=== PATIENT | female | born 2000 | race Caucasian/White ===

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

== ENCOUNTER 2020-02-23 08:30 | Emergency (ER) | payer BC, SELFPAY ==
--- NOTE | 2020-02-23 08:42 | ED.GENADULT ---
HPI - General Adult General Chief complaint: Eye Problems Stated complaint: BILATERAL EYE SWELLING Time Seen by Provider: 02/23/20 08:42 Source: patient and RN notes reviewed Mode of arrival: ambulatory Limitations: no limitations History of Present Illness HPI narrative: 19-year-old female presents with complaints of bilateral arm and anterior neck with itching, raised, and red rash for the past 2 weeks. Malinda reports increase symptoms of itching, spreading of rash to face, and bilateral eye swelling. Aveeno lotion and Benadryl pills (last this morning approximately 04:00) without relief. History of Eczema. Malinda reports recently getting a dog. Denies new changes in personal hygiene products or laundry detergent. No new foods or medications. No swelling, burning, bleeding, or drainage. Denies fever, chills, headaches, weakness, fatigue, myalgia, throat swelling, or tongue swelling. Denies chest pain or dyspnea. LMP 01/25/20. Tolerating po intake well. The patient reports she have not been diagnosed with COVID-19. The patient reports she is not waiting for the results of a COVID-19 lab test. The patient reports she do not have a new or worsening cough or shortness of breath. The patient reports she do not have any rhinorrhea, congestion, sore throat, loss of taste, nausea, vomiting, abdominal pain, and diarrhea. Denies recent traveling. Denies concerns for COVID-19 or exposures been home with limited outdoor exposure except for essential household needs, work, and return home. At this time, patient is not suspected of having COVID-19. Some parts of this dictation were generated by voice recognition software and may contain typographical and/or grammatical inaccuracies. Related Data Home Medications Medication Instructions Recorded Confirmed No Home Medications 05/12/19 02/23/20 Allergies Allergy/AdvReac Type Severity Reaction Status Date / Time No Known Allergies Allergy Verified 02/23/20 08:32 Review of Systems Review of Systems: Narrative: CONSTITUTIONAL: Denies fever, chills, sweats. EYES: Denies visual changes, redness, discharge. ENT: Denies rhinorrhea, congestion, sore throat, otalgia. Complains of bilateral eyelid swelling. CARDIOVASCULAR: Denies chest pain, palpitations, edema. RESPIRATORY: Denies dyspnea, wheezing, cough. GASTROINTESTINAL: Denies abdominal pain, nausea, vomiting, diarrhea. SKIN: Complains of diffused upper arm, anterior neck, and face with itching, raised, and red rash. Denies drainage. MUSCULOSKELETAL: Denies acute back pain, joint pain, or myalgia. NEUROLOGIC: Denies numbness or focal weakness. PSYCHIATRIC: Denies anxiety or depression. All other systems reviewed & are unremarkable except as noted in HPI and below. PMFSH Past Medical History Medical History (Updated 02/24/20 @ 00:00 by Vicky Cordero) Eczema Surgical History Surgical History (Updated 02/23/20 @ 08:59 by GEORGETTE Carrion) No significant past surgical history Family History Family History (Updated 02/23/20 @ 09:00 by GEORGETTE Carrion) Father Alive and well Mother Alive and well Social History Social History (Updated 02/23/20 @ 09:01 by GEORGETTE Carrion) Smoking status: Never smoker Tobacco type: cigarettes Second hand tobacco smoke exposure: Yes (parents) Alcohol intake: current Substance use: never Living arrangements: with family Occupation/Education: student Gender identity (if verbalized by the patient): Female Comments At time of signature, agree with nurse past medical, surgical, social, and family history. There is relevant patient's past medical history pertinent to the presenting complaint, no relevant family history pertinent to the presenting complaint. Exam Narrative: Exam Narrative: GENERAL: This is a well-nourished, well-developed patient, in no apparent distress. Talking in full sentences without deficit and ambulate with
[2020-02-23 08:46] VITALS: BP 116/69; PULSE 74; RESP 16; TEMP 36.2; O2SAT 100
[2020-02-23] MEDS: methylPREDNISolone SOD SUCC 125 MG VIAL IM (08:57)
== END 2020-02-23 09:13 | disposition home or self-care (01) ==
PROVIDERS: Emergency Provider Nurse Practitioner Family
DX: L20.9 Atopic dermatitis, unspecified (principal)
CPT/HCPCS: 96372; 99213; G0463; J2930

== ENCOUNTER 2021-08-01 17:46 | Emergency (ER) | payer OTHER, SELFPAY ==
[2021-08-01 18:07] VITALS: BP 132/80; PULSE 111; RESP 16; TEMP 37.1; O2SAT 100
--- NOTE | 2021-08-01 18:10 | PC.NURSE ---
ED Charge nurse Keyla aware of patient and need for bed assignment
[2021-08-01 18:55] LABS: Basophils Percent Auto 0.4 % (0.2-1.2); Eosinophils Absolute Auto 0.1 K/mm3 (0-0.3); Eosinophils Percent Auto 0.8 % (0-4.4); Hematocrit 41.7 % (37.0-47.0); Immature Granulocyte Absolute 0.02 K/mm3 (0.00-0.031); Immature Granulocyte Percent A 0.2 % (0-0.5); Lymphocytes Absolute Auto 2.66 K/mm3 (0.9-3.2); Mean Corpuscular HGB Conc 33.6 g/dl (32-36); Mean Corpuscular Hemoglobin 30.4 pg (26-34); Mean Corpuscular Volume 90.5 fl (80-100); Mean Platelet Volume 10.4 fl (7.4-10.4); Monocytes Absolute Auto 0.6 K/mm3 (0.1-0.6); Monocytes Percent Auto 6.2 % (2.6-8.5); Neutrophils Absolute Auto 6.1 K/mm3 (1.3-6.7); Neutrophils Percent Auto 64.4 % (45.5-73.1); Platelet Count Result 303 k/mm3 (150-375); Red Blood Count 4.61 M/mm3 (4.2-5.4); Red Cell Distribution Width 13.2 % (11.5-14.5); White Blood Count 9.5 K/mm3 (4.5-10.0)
--- NOTE | 2021-08-01 18:58 | ED.PSYCH ---
HPI - Psych General Chief Complaint: Psychiatric Symptoms <Barbara Farfan PA-C - Last Filed: 08/02/21 04:40> Stated Complaint: SI <Barbara Farfan PA-C - Last Filed: 08/02/21 04:40> Time Seen by Provider: 08/01/21 18:39 <Barbara Farfan PA-C - Last Filed: 08/02/21 04:40> History of Present Illness HPI Narrative: Patient is a 21-year-old female here for evaluation of suicidal thoughts with a plan. Patient states that she has been feeling down and depressed for as long as she remember, but over the past 3 weeks these feelings have increased. Today, she thought that she may take a bunch of pills with some alcohol or use her dad's gun to shoot herself in the head. She told her brother and aunt her suicidal thoughts, and they brought her to the emergency department. Patient admits to marijuana use today but no alcohol or other drug use. Patient does not have a formal mental health history, she was put on Lexapro for these depressive thoughts about 3 weeks ago but has never been admitted to a mental hospital. States that she has burned herself in the past but has not attempted suicide. Denies homicidal ideation, audio hallucinations visual hallucinations. <Barbara Farfan PA-C - Last Filed: 08/02/21 04:40> Related Data Home Medications: Home Medications Medication Instructions Recorded Confirmed No Home Medications 05/12/19 02/23/20 <LEONARDO Srivastava Last Filed: 08/02/21 04:40> Allergies/Adverse Reactions: Allergies Allergy/AdvReac Type Severity Reaction Status Date / Time No Known Allergies Allergy Verified 08/01/21 19:53 <LEONARDO Srivastava Last Filed: 08/02/21 04:40> Review of Systems Review of Systems: Gen.: Denies fevers or chills Eyes: Denies eye pain or visual change ENT: Denies congestion Respiratory: Denies shortness of breath or cough CV: Denies chest pain or palpitations GI: Denies abdominal pain nausea, emesis or diarrhea denies burning, urgency, frequency or hematuria Musculoskeletal: Denies back pain or muscle pain Neuro: Denies numbness, tingling, weakness or focal weakness Skin: Denies rash Psych: Reports suicidal thoughts with plan. Except as documented, all other systems reviewed and negative <Barbara Farfan PA-C - Last Filed: 08/02/21 04:40> [facility] Past Medical History Medical History: Medical History Eczema <Barbara Farfan PA-C - Last Filed: 08/02/21 04:40> Surgical History Surgical History: Surgical History No significant past surgical history <Barbara Farfan PA-C - Last Filed: 08/02/21 04:40> Family History Family History: Family History (Updated 02/23/20 @ 09:00 by GEORGETTE Carrion) Father Alive and well Mother Alive and well <Barbara Farfan PA-C - Last Filed: 08/02/21 04:40> Social History Social History: Social History (Updated 02/23/20 @ 09:01 by GEORGETTE Carrion) Smoking status: Never smoker Tobacco type: cigarettes Second hand tobacco smoke exposure: Yes (parents) Alcohol intake: current Substance use: never Gender identity (if verbalized by the patient): Female <Barbara Farfan PA-C - Last Filed: 08/02/21 04:40> Exam Narrative: APPEARANCE: Well appearing, no pain in distress, well-nourished. Head: Normocephalic and atraumatic. EYES: PERRLA/EOMI, conjunctivae clear NOSE: No nasal drainage EARS: External ear normal in appearance THROAT: Oropharynx is clear. Mucous membranes are moist. NECK: Supple. No adenopathy, no masses. RESPIRATORY: Airway patent, respirations nonlabored. Clear to auscultation bilaterally, no rales, rhonchi, wheezing. CARDIOVASCULAR: Regular rate and rhythm without murmurs, rubs, or gallops. ABDOMINAL: Normoactive bowel sounds. Soft, nontender, no
[2021-08-01 19:05] LABS: Alanine Aminotransferase 16 U/L (6-35); Albumin Level 4.9 g/dL (3.5-5.1); Alkaline Phosphatase 100 U/L (38-126); Anion Gap 6 mmol/L (8-16); Aspartate Amino Transferase 23 U/L (14-36); Bilirubin,Total 0.2 mg/dL (0.2-1.3); Blood Urea Nitrogen 11 mg/dL (7-17); Carbon Dioxide 25 mmol/L (22-30); Chloride 108 mmol/L (98-107); Estimated CRCL calculation 115 ml/min; Estimated Glomerular Filt Rate > 60; Glucose 90 mg/dL (65-110); Potassium 3.5 mmol/L (3.4-5.0); Sodium 139 mmol/L (137-145)
[2021-08-01 19:06] LABS: Ethanol < 10 mg/dL (<10)
[2021-08-01 19:35] LABS: Thyroid Stimulating Hormone 0.913 uIU/mL (0.465-4.680)
[2021-08-01 19:48] LABS: Appearance Urine Clear (Clear); Bilirubin Urine Negative (Negative); Blood Urine Negative (Negative); Color Urine Yellow (Yellow); Glucose Urine UA Negative (Negative); Ketones Urine 2+ mg/dL (Negative); Leukocyte Esterase Ur Negative LEU/UL (Negative); Nitrate Urine Negative (Negative); Protein Urine Negative (Negative); Specific Grav Ur 1.025 (1.001-1.035)
[2021-08-01 19:54] LABS: Bacteria Urine Trace /hpf; Mucus Urine Rare /lpf; RBC Urine 0-2 /hpf (0-2); Squamous Epithelial Cell Urine Few /hpf (Few); WBC Urine 0-3 /hpf
[2021-08-01 19:58] LABS: Add Urine Microscopic? YES
[2021-08-01 20:03] LABS: Amphetamine Screen Urine Negative (Negative); Barbiturate Screen Urine Negative (Negative); Benzodiazepines Screen Urine Negative (Negative); Cannabinoid Screen Urine Positive (Negative); Cocaine Screen Urine Negative (Negative); Methadone Screen Urine Negative (Negative); Opiate Screen Urine Negative (Negative); Phencyclidine Screen Urine Negative (Negative)
--- NOTE | 2021-08-01 20:38 | PC.NURSE ---
wesley Lozano at [facility] pt insurance does not qualify for [facility] evaluation.
--- NOTE | 2021-08-01 22:26 | PC.NURSE ---
Pt chart faxed to [facility].
[2021-08-01] MEDS: ACETAMINOPHEN 500 MG TABLET 1000 MG PO (23:10)
[2021-08-01] MEDS: ONDANSETRON HCL ODT 4 MG TABLET PO (23:11)
[2021-08-02 07:13] LABS: SARS-CoV-2 RNA PCR Negative
[2021-08-02 08:25] VITALS: BP 132/76; PULSE 98; RESP 16; O2SAT 98
== END 2021-08-02 10:05 ==
PROVIDERS: Emergency Medicine; Physician Assistant; Emergency Provider Emergency Medicine
DX: R45.851 Suicidal ideations (principal); F32.A Depression, unspecified; Z20.822 Contact with and (suspected) exposure to COVID-19; Z77.22 Contact with and (suspected) exposure to environmental tobacco smoke (acute) (chronic)
CPT/HCPCS: 36415; 80053; 80307; 81001; 81025; 84443; 85025; 99285; A9270; C9803; U0003; U0005

== ENCOUNTER 2024-08-14 11:41 | Emergency (ER) | payer OTHER, SELFPAY ==
--- NOTE | ~2024-08-14 | CT_ITS ---
CT abdomen pelvis w con Ordering provider: Vilma Bustillo MD History: 24 years Female with . Lower abdominal pain . Comparison: None. Technique: CT abdomen and pelvis with IV and without oral contrast. Automated exposure control and it erative reconstruction technique were employed. The dose-length product was 409.77 mGy-cm. 100 mL Omn ipaque 350 was given IV. Findings: VISUALIZED LOWER CHEST: Dependent atelectatic changes. UPPER ABDOMINAL ORGANS: Liver: Normal. Gallbladder: Increased density in the gallbladder which may be a sludge. Ultrasound evaluation advise d. Spleen: Normal. Stomach/duodenum: Normal. Pancreas: Normal. Adrenals: Normal. Kidneys: Normal. PELVIC ORGANS: The bladder is normal. Slightly hyperdense area seen in the left ovary which may be a ruptured follicle. BOWEL AND MESENTERY: Colon: No evidence of diverticulitis. Normal appendix. Small Bowel: Normal. No obstruction. Peritoneum/mesentery: No free air. Trace of free fluid is seen in the pelvis. No mesenteric lymphaden opathy. RETROPERITONEUM: Normal aorta. No retroperitoneal lymphadenopathy. MUSCULOSKELETAL: Superficial soft tissues: The superficial soft tissues are normal. Bones: Normal spine. IMPRESSION: 1. No evidence of appendicitis, diverticulitis or intestinal obstruction. 2. Increased density in the gallbladder which may indicate sludge. Ultrasound evaluation advised. 3. Hypodensity in the left ovary which may be a ruptured follicle with minimal fluid in the pelvis. Reviewed, dictated and finalized at location A.
--- NOTE | ~2024-08-14 | US_ITS ---
EXAM: PELVIC ULTRASOUND HISTORY: Pelvic pain, ovarian torsion suspected clinically COMPARISON: None. FINDINGS: UTERUS: 7.7 x 3.8 x 4.6 cm. The uterus is anteverted and anteflexed. The endometrial complex is hyperechoic and measures 17 mm. RIGHT OVARY: The right ovary is unremarkable in echogenicity and size measuring 2.5 x 1.7 x 1.7 cm. Dopplerable flow is identified. Trace surrounding free fluid is noted. LEFT OVARY: The left ovary is increased in size measuring 4.4 x 2.8 x 3.3 cm Dopplerable flow is identified. A well-circumscribed anechoic avascular focus is identified within the left ovary measuring 2.7 x 2.5 x 2.3 cm, consistent with a simple cyst, for which no further follow-up is needed. Free fluid is identified within the posterior cul-de-sac and within the right adnexa. IMPRESSION: Dopplerable flow is identified within the bilateral ovaries. Simple cyst within the left ovary which does not meet size criteria (for a patient of this age) for f ollow-up. Free fluid within the posterior cul-de-sac, likely physiologic. Reviewed, dictated and finalized at location A. IMPRESSION: Dopplerable flow is identified within the bilateral ovaries. Simple cyst within the left ovary which does not meet size criteria (for a jo ent of this age) for follow-up. Free fluid within the posterior cul-de-sac, likely physiologic.
[2024-08-14 11:48] VITALS: BP 128/88; PULSE 85; RESP 18; TEMP 36.4; O2SAT 99
--- NOTE | 2024-08-14 12:10 | ED.ABDPAIN ---
HPI - Abdominal Pain General Chief Complaint: Abdominal Pain Stated Complaint: OVARIAN CYSTS Time Seen by Provider: 08/14/24 12:06 Source: patient Mode of arrival: ambulatory Limitations: no limitations History of Present Illness HPI narrative: 24 years old white female presents with lower abdominal pain like something trying to get out of her lower belly started 2 days ago, was seen at [facility] twice yesterday last visit was admitted to the hospital overnight for ovarian cyst bilaterally, then was seen by a surgeon this morning who told her that she need to be seen by OBGYN anemia to go to [facility]. Patient drove herself to [facility] with the above symptoms. Last menstrual period June 30, 2024, history of GERD, patient never been before denies any history of abdominal surgery. She does not smoke or drink or use drugs. Patient did not eat or drink for the last 48 hours because of pain Related Data Home Medications ?Medication ?Instructions ?Recorded ?Confirmed ?Last Taken ?Type No Home Medications 05/12/19 02/23/20 Unknown History Allergies Allergy/AdvReac Type Severity Reaction Status Date / Time No Known Allergies Allergy Verified 08/14/24 11:52 Review of Systems Review of Systems: All systems reviewed & are unremarkable except as noted in HPI and below PMFSH Past Medical History Medical History Eczema Surgical History Surgical History No significant past surgical history Family History Family History Father Alive and well Mother Alive and well Social History Social History Smoking status: Never smoker Tobacco type: cigarettes Second hand tobacco smoke exposure: Yes (parents) Alcohol intake: current Substance use: never Living arrangements: with family Occupation/Education: student Gender identity (if verbalized by the patient): Female Exam Narrative: General appearance: Well-developed, well-nourished Skin: Normal color Head: Normocephalic, nontraumatic Eyes: Clear conjunctiva ENT: Oropharynx normal, ears normal, nose normal Neck: Supple, nontender Chest and respiratory: Airway patent, no respiratory distress, no accessory muscle use Heart: Regular rate/rhythm Abdomen: Soft, diffuse tenderness lower abdomen, no guarding or rebound, no organomegaly, quiet bowel sounds Vascular: Normal peripheral pulses, normal capillary refill. Musculoskeletal: Normal range of motion, nontender back Neurologic: Alert and oriented ?3, [employer] H[employer] INSPECTOR is normal as tested, no gross motor deficit Course Vital Signs Vital signs: Vital Signs Temperature 36.4 C 08/14/24 11:48 Pulse Rate 85 08/14/24 11:48 Respiratory Rate 18 08/14/24 11:48 Blood Pressure 128/88 08/14/24 11:48 Pulse Oximetry 99 08/14/24 11:48 Oxygen Delivery Room Air 08/14/24 11:48 Temperature 36.4 C 08/14/24 11:48 Pulse Rate 85 08/14/24 13:19 Respiratory Rate 16 08/14/24 13:19 Blood Pressure 121/66 08/14/24 13:19 Pulse Oximetry 98 08/14/24 13:19 Oxygen Delivery Room Air 08/14/24 11:48 MDM - Abdominal Pain MDM Narrative Medical decision making narrative: Patient came with lower abdominal pain Vital signs are stable Physical examination showing diffuse tenderness lower abdomen bilaterally Differential diagnosis ovarian cyst, ovarian torsion, appendicitis, urinary tract infection, cholecystitis, diverticulitis, constipation Blood workup today includes CBC, CMP, lipase showed WBC 11.1, Pelvic ultrasound showed 4+ KETONE, TRACE LEUKOCYTE ESTRACE, 1+ BACTERIA PELVIC ULTRASOUND SHOWED SIMPLE CYST WITHIN THE LEFT OVARY WHICH DOES NOT MEET SIZE CRITERIA FOR FOLLOW-UP CT ABDOMEN AND PELVIS WITH IV CONTRAST SHOWED MAY BE A RUPTURED FOLLICLE IN THE LEFT OVARY WITH MINIMAL FLUID IN THE PELVIS DIAGNOSIS LOWER ABDOMINAL PAIN, URINARY TRACT INFECTION-SUSPECTED DISCHARGED ON MACROBID AND IBUPROFEN NEEDED. THE PT WAS DISCHARGED TO HOME.THE PT,S CONDITION UPON DISCHARGE WAS FAIR,EDUCATION WAS PROVIDED TO THE PT IN REFERENCE TO THE FINAL IMPRESSION,DISCHARGE STUDY RESULTS,TREATMENT,PROGNOSIS AND NEED FOR FOLLOW UP . Differential Diagnosis Differential diagnosis: Likely other (As above) Medical Records Attestation: I reviewed the patient's medical records. Lab Data Attestation: I reviewed the patient's lab results. 08/14/24 12:09 08/14/24 12:09 Labs: Lab Results 08/14/24 Range/Units 12:09 WBC 11.1 H (4.5-10.0) K/mm3 RBC 5.02 (4.2-5.4) M/mm3 Hgb 14.6 (12.0-15.0) g/dL Hct 43.7 (37.0-47.0) % MCV 87.1 (80-100) fl MCH 29.1 (26-34) pg MCHC 33.4 (32-36) g/dl RDW 13.0 (11.5-14.5) % Plt Count 295 (150-375) k/mm3 MPV 10.6 H (7.4-10.4) fl Immature Gran % (Auto) 0.5 (0-0.5) % Neut % (Auto) 79.3 H (45.5-73.1) % Lymph % (Auto) 14.4 L (18.3-44.2) % [place] % (Auto) 4.9 (2.6-8.5) % Eos % (Auto) 0.7 (0-4.4) % Baso % (Auto) 0.2 (0.2-1.2) % Lymph # (Auto) 1.60 (0.9-3.2) K/mm3 [place] # (Auto) 0.5 (0.1-0.6) K/mm3 Eos # (Auto) 0.1 (0-0.3) K/mm3 Baso # (Auto) 0.0 (0.0-0.1) K/mm3 Abs Immat Gran (auto) 0.05 H (0.00-0.031) K/mm3 Absolute Neuts (auto) 8.8 H (1.3-6.7) K/mm3 Absolute Nucleated RBC 0.000 (0.0-0.012) K/mm3 Nucleated RBC % 0.0 (0.0-0.2) % Sodium 136 L (137-145) mmol/L Potassium 4.4 (3.4-5.0) mmol/L Chloride 105 (98-107) mmol/L Carbon Dioxide 17 L (22-30) mmol/L Anion Gap 14 H (4-12) mmol/L BUN 14 (7-17) mg/dL Creatinine 0.76 (0.7-1.0) mg/dL Estim Creat Clear Calc 106 ml/min Estimated GFR > 60 (59 - ) Glucose 67 (65-110) mg/dL Calcium 9.6 (8.4-10.2) mg/dL Total Bilirubin 0.8 (0.2-1.3) mg/dL AST 25 (14-36) U/L ALT 16 (6-35) U/L Alkaline Phosphatase 99 (38-126) U/L Total Protein 8.4 H (6.3-8.2) g/dL Albumin 4.5 (3.5-5.1) g/dL Lipase 64 (23-300) U/L Urine Color Yellow (Yellow) Urine Appearance Clear (Clear) Urine pH 5.5 (5.0-9.0) Ur Specific [place] 1.028 (1.001-1.035) Urine Protein Negative (Negative) mg/dL Urine Glucose (UA) Negative (Negative) mg/dL Urine Ketones 4+ H (Negative) mg/dL Ur Blood (Man) Negative (Negative) Urine Nitrate Negative (Negative) Urine Bilirubin Negative (Negative) Urine Urobilinogen 1.0 (<2.0) mg/dL Leukocyte Esterase Rfl Trace H (Negative) LYNNE/UL Urine RBC 3-5 H (0-2) /hpf Urine WBC 0-5 (0-3) /hpf Ur Squamous Epith Cells Occasional (Few) /hpf Urine Bacteria 1+ H /hpf Urine Casts 0-2 POC Urine HCG, Qual Negative (Negative) Imaging Data Radiologist's impression: ITS Impressions Pelvic/Transvag US 08/14/24 14:27 IMPRESSION: Dopplerable flow is identified within the bilateral ovaries. Simple cyst within the left ovary which does not meet size criteria (for a patient of this age) for follow-up. Free fluid within the posterior cul-de-sac, likely physiologic. Abdomen/Pelvis CT 08/14/24 15:34 IMPRESSION: 1. No evidence of appendicitis, diverticulitis or intestinal obstruction. 2. Increased density in the gallbladder which may indicate sludge. Ultrasound evaluation advised. 3. Hypodensity in the left ovary which may be a ruptured follicle with minimal fluid in the pelvis. Critical Care Time Critical Care Time Critical Care Time: No Discharge Plan Discharge Clinical Impression: Bilateral lower abdominal pain, Ovarian cyst rupture, Urinary tract infection Patient Disposition: Home Condition: Stable Instructions: Antibiotic Form, Abdominal Pain (ED), Ruptured Ovarian Cyst (ED) Additional Instructions: RETURN IF SYMPTOMS ARE WORSENING , CALL YOUR FAMILY PHYSICIAN FOR APPOINTMENT, TAKE TYLENOL, IBUPROFEN NEEDED FOR ACHES AND PAIN, CONTINUE HOME MEDICATIONS. Patient Language: Irish Prescriptions: New nitrofurantoin monohyd/m-cryst [Macrobid] 100 mg capsule 100 mg PO Q12H 5 Days Qty: 10 0RF Rx Instructions: must administer with a meal/food No Action No Home Medications loratadine [Claritin] 10 mg tablet 10 mg PO DAILY 60 Days Qty: 60 0RF prednisone 20 mg tablet 40 mg PO DAILY 5 Days Qty: 10 0RF triamcinolone acetonide 0.1 % cream 1 applic TOPICAL BID 7 Days Qty: 80 0RF pimecrolimus [Elidel] 1 % cream 1 applic topical BID Qty: 60 0RF Rx Instructions: apply to facial eczema only Follow-up/Referrals: Conner Del Rosario MD [Physician] - 08/17/24 UNKNOWN,DOCTOR [Primary Care Provider] -
[2024-08-14 12:11] LABS: BEDSIDEPREGUCG Negative (Negative)
[2024-08-14 12:17] LABS: Hematocrit 43.7 % (37.0-47.0); Hemoglobin 14.6 g/dL (12.0-15.0); Immature Granulocyte Percent A 0.5 % (0-0.5); Lymphocytes Absolute Auto 1.60 K/mm3 (0.9-3.2); Mean Corpuscular HGB Conc 33.4 g/dl (32-36); Mean Corpuscular Hemoglobin 29.1 pg (26-34); Mean Corpuscular Volume 87.1 fl (80-100); Nucleated Red Blood Cells Absolute Auto 0.000 K/mm3 (0.0-0.012); Nucleated Red Blood Cells Perc 0.0 % (0.0-0.2); Platelet Count Result 295 k/mm3 (150-375); Red Blood Count 5.02 M/mm3 (4.2-5.4); White Blood Count 11.1 K/mm3 (4.5-10.0)
[2024-08-14 12:22] LABS: Add Urine Microscopic? YES; Appearance Urine Clear (Clear); Glucose Urine UA Negative (Negative); Leukocyte Esterase Ur Trace LEU/UL (Negative); Nitrate Urine Negative (Negative); Non Pathogenic Casts 0-2; Specific Grav Ur 1.028 (1.001-1.035)
[2024-08-14 12:26] LABS: Alanine Aminotransferase 16 U/L (6-35); Albumin Level 4.5 g/dL (3.5-5.1); Alkaline Phosphatase 99 U/L (38-126); Anion Gap 14 mmol/L (4-12); Aspartate Amino Transferase 25 U/L (14-36); Bilirubin,Total 0.8 mg/dL (0.2-1.3); Blood Urea Nitrogen 14 mg/dL (7-17); Calcium 9.6 mg/dL (8.4-10.2); Carbon Dioxide 17 mmol/L (22-30); Chloride 105 mmol/L (98-107); Estimated CRCL calculation 106 ml/min; Estimated Glomerular Filt Rate > 60; Glucose 67 mg/dL (65-110); Lipase 64 U/L (23-300); Potassium 4.4 mmol/L (3.4-5.0); Sodium 136 mmol/L (137-145); Total Protein 8.4 g/dL (6.3-8.2)
--- NOTE | 2024-08-14 12:43 | PC.NURSE ---
Patient requesting pain medication. Provider aware
[2024-08-14] MEDS: ONDANSETRON INJ 4 MG/2 ML VIAL IV PUSH (13:14)
[2024-08-14] MEDS: HYDROmorphone HCL INJ (*CRX) 2 MG/ML VIAL 0.5 MG IV PUSH (13:14)
[2024-08-14 13:17] VITALS: BP 121/66; O2SAT 99
[2024-08-14 13:19] VITALS: BP 121/66; PULSE 85; RESP 16; O2SAT 98
[2024-08-14 15:01] VITALS: BP 120/74; PULSE 78; RESP 18; O2SAT 97
== END 2024-08-14 16:36 | disposition home or self-care (01) ==
PROVIDERS: Emergency Medicine; Emergency Provider Emergency Medicine
DX: N39.0 Urinary tract infection, site not specified (principal); N83.209 Unspecified ovarian cyst, unspecified side
CPT/HCPCS: 36415; 74177; 76830; 76856; 80053; 81001; 81025; 83690; 85025; 96374; 96375; 99284; J1171; J2405; Q9967

== ENCOUNTER 2024-08-27 12:19 | Emergency (ER) | payer OTHER, SELFPAY ==
[2024-08-27] VITALS (7 sets, daily range): BP systolic 112–117; BP diastolic 68–91; PULSE 52–84; RESP 16–26; TEMP 36.8; O2SAT 96–99
--- NOTE | ~2024-08-27 | CT_ITS ---
EXAMINATION: CT abdomen pelvis w con DATE: 08/27/2024 13:14 INDICATION: Abdominal pain TECHNIQUE: Computed tomography (CT) of the abdomen and pelvis was performed with 100 cc Omnipaque 350 intravenous contrast. The dose-length product was 538.69 mGy-cm. Automated exposure control and iter ative reconstruction technique were employed. COMPARISON: CT dated 08/14/2024. FINDINGS: Dependent atelectasis left lower lobe. No significant pleural or pericardial effusion. Hear t size normal. No significant vascular abnormality. No lymphadenopathy. The liver, spleen, pancreas, adrenal glands and kidneys are unremarkable. Gallbladder is present. No free air or free fluid. No ad nexal masses. No abnormal pelvic masses. There is sclerosis along the iliac aspect of the sacroiliac joints bilaterally, left greater than right, consistent with asymmetric sacroiliitis. Nonobstructive bowel gas pattern. IMPRESSION: 1. No acute abdominal abnormality. Reviewed, dictated and finalized at location B.
--- NOTE | ~2024-08-27 | XR_ITS ---
XR chest 2V Ordering provider: Justin Ponce MD History: 24 years Female with . Cough, . Comparison: None. FINDINGS: MEDIASTINUM: The cardiac silhouette is not enlarged. LUNGS: No infiltrates, effusions or pneumothorax. OTHER: No free air under the diaphragm. IMPRESSION: No acute cardiopulmonary pathology. Reviewed, dictated and finalized at location A.
[2024-08-27 12:33] LABS: BEDSIDEPREGUCG Negative (Negative)
--- NOTE | 2024-08-27 12:51 | ED.GENADULT ---
HPI - General Adult General Chief complaint: Abdominal Pain Stated complaint: abd pain Time Seen by Provider: 08/27/24 12:21 History of Present Illness HPI narrative: Patient 24-year-old female presents emergency department chief complaint of abdominal pain. Patient reports that she was diagnosed with ovarian cyst in the past reports that she started having pain diffusely throughout her abdomen also reports that she has had a cough is the generalized body aches the patient states she has had several bouts of nausea vomiting and has also had diarrhea the patient reports no prior abdominal surgeries Related Data Allergies Allergy/AdvReac Type Severity Reaction Status Date / Time No Known Allergies Allergy Verified 08/27/24 12:19 Review of Systems Review of Systems: A 10 system review of systems was completed on the patient and is negative except for what is stated in the HPI. Nursing and ancillary documentation was reviewed. PMFSH Past Medical History Medical History Eczema Surgical History Surgical History No significant past surgical history Family History Family History Father Alive and well Mother Alive and well Social History Social History Smoking status: Never smoker Tobacco type: cigarettes Second hand tobacco smoke exposure: Yes (parents) Alcohol intake: current Substance use: never Living arrangements: with family Occupation/Education: student Gender identity (if verbalized by the patient): Female Exam Narrative: GENERAL: Well-appearing, well-nourished, and in no acute distress. HEAD: Normocephalic, atraumatic. EYES: PERRLA and EOMI. ENT: Nares clear, no rhinorrhea or epistaxis. Mucous membranes moist. NECK: Supple. CHEST: Clear to auscultation. No respiratory distress. HEART: Regular rate and rhythm. No murmur heard. Normal peripheral pulses. ABDOMEN: Soft, diffusely tender to palpation, nondistended, normal active bowel sounds. EXTREMITIES: Normal range of motion. No edema. SKIN: Warm, dry, no rash. NEURO: No focal deficits. Alert and oriented x3. PSYCH: Normal mood and affect. Course Vital Signs Vital signs: Vital Signs Temperature 36.8 C 08/27/24 12:24 Pulse Rate 84 08/27/24 12:24 Respiratory Rate 16 08/27/24 12:24 Blood Pressure 115/91 H 08/27/24 12:24 Pulse Oximetry 96 08/27/24 12:24 Oxygen Delivery Room Air 08/27/24 12:24 Temperature 36.8 C 08/27/24 12:24 Pulse Rate 69 08/27/24 12:41 Respiratory Rate 20 08/27/24 12:41 Blood Pressure 115/91 H 08/27/24 12:41 Pulse Oximetry 98 08/27/24 12:41 Oxygen Delivery Room Air 08/27/24 12:24 Medical Decision Making MDM Narrative Medical decision making narrative: Differential diagnosis includes UTI, pyelonephritis, intra-abdominal infection, appendicitis, ovarian cyst,, upper respiratory infection, gastroenteritis, Patient's vital signs are within normal limits Laboratory studies showed a CBC with white count of 5.7 electrolytes are within normal limits urinalysis showed cloudy urine 2+ leukocyte esterase and 2+ bacteria COVID flu RSV are negative chest x-ray showed no focal infiltrate CT scan of the abdomen pelvis showed no acute abnormality The patient's phone orbit better after receiving IV fluids the patient will be started on Keflex for the UTI given a prescription for Zofran and she follow-up with her primary care provider Vital Signs Vital Signs: Vital Signs Temperature 36.8 C 08/27/24 12:24 Pulse Rate 84 08/27/24 12:24 Respiratory Rate 16 08/27/24 12:24 Blood Pressure 115/91 H 08/27/24 12:24 Pulse Oximetry 96 08/27/24 12:24 Oxygen Delivery Room Air 08/27/24 12:24 Temperature 36.8 C 08/27/24 12:24 Pulse Rate 69 08/27/24 12:41 Respiratory Rate 20 08/27/24 12:41 Blood Pressure 115/91 H 08/27/24 12:41 Pulse Oximetry 98 08/27/24 12:41 Oxygen Delivery Room Air 08/27/24 12:24 Lab Data 08/27/24 12:44 08/27/24 13:09 Labs: Lab Results 08/27/24 08/27/24 08/27/24 Range/Units 12:32 12:44 12:47 WBC 5.7 (4.5-10.0) K/mm3 RBC 4.43 (4.2-5.4) M/mm3 Hgb 13.0 (12.0-15.0) g/dL Hct 39.3 (37.0-47.0) % MCV 88.7 (80-100) fl MCH 29.3 (26-34) pg MCHC 33.1 (32-36) g/dl RDW 13.2 (11.5-14.5) % Plt Count 273 (150-375) k/mm3 MPV 10.7 H (7.4-10.4) fl Immature Gran % (Auto) 0.0 (0-0.5) % Neut % (Auto) 58.6 (45.5-73.1) % Lymph % (Auto) 32.0 (18.3-44.2) % [place] % (Auto) 6.7 (2.6-8.5) % Eos % (Auto) 2.5 (0-4.4) % Baso % (Auto) 0.2 (0.2-1.2) % Lymph # (Auto) 1.81 (0.9-3.2) K/mm3 [place] # (Auto) 0.4 (0.1-0.6) K/mm3 Eos # (Auto) 0.1 (0-0.3) K/mm3 Baso # (Auto) 0.0 (0.0-0.1) K/mm3 Abs Immat Gran (auto) 0.00 (0.00-0.031) K/mm3 Absolute Neuts (auto) 3.3 (1.3-6.7) K/mm3 Absolute Nucleated RBC 0.000 (0.0-0.012) K/mm3 Nucleated RBC % 0.0 (0.0-0.2) % Sodium 139 (137-145) mmol/L Potassium 3.5 (3.4-5.0) mmol/L Chloride 106 (98-107) mmol/L Carbon Dioxide 25 (22-30) mmol/L Anion Gap 8 (4-12) mmol/L BUN 8 D (7-17) mg/dL Creatinine 0.70 (0.7-1.0) mg/dL Estim Creat Clear Calc 114 ml/min Estimated GFR > 60 (59 - ) Glucose 95 (65-110) mg/dL Calcium 9.2 (8.4-10.2) mg/dL Total Bilirubin 0.4 (0.2-1.3) mg/dL AST 24 (14-36) U/L ALT 18 (6-35) U/L Alkaline Phosphatase 84 (38-126) U/L Total Protein 7.4 (6.3-8.2) g/dL Albumin 4.2 (3.5-5.1) g/dL Lipase 51 (23-300) U/L Urine Color Yellow (Yellow) Urine Appearance Cloudy H (Clear) Urine pH 8.0 (5.0-9.0) Ur Specific [place] 1.015 (1.001-1.035) Urine Protein Negative (Negative) mg/dL Urine Glucose (UA) Negative (Negative) mg/dL Urine Ketones Negative (Negative) mg/dL Ur Blood (Man) Negative (Negative) Urine Nitrate Negative (Negative) Urine Bilirubin Negative (Negative) Urine Urobilinogen 2.0 H (<2.0) mg/dL Add Ur Microanalysis Reviewed Leukocyte Esterase Rfl 2+ H (Negative) LYNNE/UL Urine RBC 0-2 (0-2) /hpf Urine WBC 0-5 (0-3) /hpf Ur Squamous Epith Cells Few (Few) /hpf Urine Bacteria 2+ H /hpf Urine Casts 0-2 POC Urine HCG, Qual Negative (Negative) Influenza A (RT-PCR) Negative (Negative) Influenza B (RT-PCR) Negative (Negative) RSV (RT-PCR) Negative (Negative) SARS-CoV-2 RNA (RT-PCR) Negative (Negative) 08/27/24 Range/Units 13:09 WBC (4.5-10.0) K/mm3 RBC (4.2-5.4) M/mm3 Hgb (12.0-15.0) g/dL Hct (37.0-47.0) % MCV (80-100) fl MCH (26-34) pg MCHC (32-36) g/dl RDW (11.5-14.5) % Plt Count (150-375) k/mm3 MPV (7.4-10.4) fl Immature Gran % (Auto) (0-0.5) % Neut % (Auto) (45.5-73.1) % Lymph % (Auto) (18.3-44.2) % [place] % (Auto) (2.6-8.5) % Eos % (Auto) (0-4.4) % Baso % (Auto) (0.2-1.2) % Lymph # (Auto) (0.9-3.2) K/mm3 [place] # (Auto) (0.1-0.6) K/mm3 Eos # (Auto) (0-0.3) K/mm3 Baso # (Auto) (0.0-0.1) K/mm3 Abs Immat Gran (auto) (0.00-0.031) K/mm3 Absolute Neuts (auto) (1.3-6.7) K/mm3 Absolute Nucleated RBC (0.0-0.012) K/mm3 Nucleated RBC % (0.0-0.2) % Sodium (137-145) mmol/L Potassium (3.4-5.0) mmol/L Chloride (98-107) mmol/L Carbon Dioxide (22-30) mmol/L Anion Gap (4-12) mmol/L BUN (7-17) mg/dL Creatinine 0.70 (0.7-1.0) mg/dL Estim Creat Clear Calc 114 ml/min Estimated GFR > 60 (59 - ) Glucose (65-110) mg/dL Calcium (8.4-10.2) mg/dL Total Bilirubin (0.2-1.3) mg/dL AST (14-36) U/L ALT (6-35) U/L Alkaline Phosphatase (38-126) U/L Total Protein (6.3-8.2) g/dL Albumin (3.5-5.1) g/dL Lipase (23-300) U/L Urine Color (Yellow) Urine Appearance (Clear) Urine pH (5.0-9.0) Ur Specific [place] (1.001-1.035) Urine Protein (Negative) mg/dL Urine Glucose (UA) (Negative) mg/dL Urine Ketones (Negative) mg/dL Ur Blood (Man) (Negative) Urine Nitrate (Negative) Urine Bilirubin (Negative) Urine Urobilinogen (<2.0) mg/dL Add Ur Microanalysis Leukocyte Esterase Rfl (Negative) LYNNE/UL Urine RBC (0-2) /hpf Urine WBC (0-3) /hpf Ur Squamous Epith Cells (Few) /hpf Urine Bacteria /hpf Urine Casts POC Urine HCG, Qual (Negative) Influenza A (RT-PCR) (Negative) Influenza B (RT-PCR) (Negative) RSV (RT-PCR) (Negative) SARS-CoV-2 RNA (RT-PCR) (Negative) Discharge Plan Discharge Clinical Impression: Abdominal pain, UTI (urinary tract infection) Patient Disposition: Home Condition: Stable Instructions: Antibiotic Form, Urinary Tract Infection in Women (ED), Abdominal Pain (ED) Patient Language: Italian Prescriptions: New cephalexin 500 mg capsule 500 mg PO Q12H 7 Days Qty: 14 0RF ondansetron 4 mg tablet,disintegrating 4 mg PO Q8H PRN (Reason: nausea and vomiting) Qty: 10 0RF No Action loratadine [Claritin] 10 mg tablet 10 mg PO DAILY 60 Days Qty: 60 0RF prednisone 20 mg tablet 40 mg PO DAILY 5 Days Qty: 10 0RF triamcinolone acetonide 0.1 % cream 1 applic TOPICAL BID 7 Days Qty: 80 0RF pimecrolimus [Elidel] 1 % cream 1 applic topical BID Qty: 60 0RF Rx Instructions: apply to facial eczema only nitrofurantoin monohyd/m-cryst [Macrobid] 100 mg capsule 100 mg PO Q12H 5 Days Qty: 10 0RF Rx Instructions: must administer with a meal/food Follow-up/Referrals: UNKNOWN,DOCTOR [Primary Care Provider] - Stand Alone Forms: Work/School Release IP
[2024-08-27 12:53] LABS: Hematocrit 39.3 % (37.0-47.0); Hemoglobin 13.0 g/dL (12.0-15.0); Immature Granulocyte Percent A 0.0 % (0-0.5); Lymphocytes Absolute Auto 1.81 K/mm3 (0.9-3.2); Mean Corpuscular HGB Conc 33.1 g/dl (32-36); Mean Corpuscular Hemoglobin 29.3 pg (26-34); Mean Corpuscular Volume 88.7 fl (80-100); Nucleated Red Blood Cells Absolute Auto 0.000 K/mm3 (0.0-0.012); Nucleated Red Blood Cells Perc 0.0 % (0.0-0.2); Platelet Count Result 273 k/mm3 (150-375); Red Blood Count 4.43 M/mm3 (4.2-5.4); White Blood Count 5.7 K/mm3 (4.5-10.0)
[2024-08-27] MEDS: SODIUM CHLORIDE 0.9% IV 1,000 ML 999 ML IV CONT (12:54)
[2024-08-27] MEDS: ONDANSETRON INJ 4 MG/2 ML VIAL IV PUSH (12:55)
[2024-08-27] MEDS: MORPHINE SULFATE (*CRX) 4 MG/ML INJ IV PUSH (12:58)
[2024-08-27 13:07] LABS: Add Urine Microscopic? YES; Appearance Urine Cloudy (Clear); Glucose Urine UA Negative (Negative); Leukocyte Esterase Ur 2+ LEU/UL (Negative); Need Manual Microscopic Reviewed; Nitrate Urine Negative (Negative); Non Pathogenic Casts 0-2; Specific Grav Ur 1.015 (1.001-1.035)
[2024-08-27 13:10] LABS: Estimated CRCL calculation 114 ml/min; Estimated Glomerular Filt Rate > 60
[2024-08-27 13:18] LABS: Alanine Aminotransferase 18 U/L (6-35); Albumin Level 4.2 g/dL (3.5-5.1); Alkaline Phosphatase 84 U/L (38-126); Anion Gap 8 mmol/L (4-12); Aspartate Amino Transferase 24 U/L (14-36); Bilirubin,Total 0.4 mg/dL (0.2-1.3); Blood Urea Nitrogen 8 mg/dL (7-17); Calcium 9.2 mg/dL (8.4-10.2); Carbon Dioxide 25 mmol/L (22-30); Chloride 106 mmol/L (98-107); Estimated CRCL calculation 114 ml/min; Estimated Glomerular Filt Rate > 60; Glucose 95 mg/dL (65-110); Lipase 51 U/L (23-300); Potassium 3.5 mmol/L (3.4-5.0); Sodium 139 mmol/L (137-145); Total Protein 7.4 g/dL (6.3-8.2)
[2024-08-27 13:29] LABS: Influenza A QL RT-PCR Negative (Negative); Influenza B QL RT-PCR Negative (Negative); RSV RNA, RT-PCR Negative (Negative); SARS-CoV-2 RNA PCR Negative (Negative)
== END 2024-08-27 15:24 | disposition home or self-care (01) ==
PROVIDERS: Emergency Provider Emergency Medicine
DX: N39.0 Urinary tract infection, site not specified (principal); R10.9 Unspecified abdominal pain; Z20.822 Contact with and (suspected) exposure to COVID-19; Z77.22 Contact with and (suspected) exposure to environmental tobacco smoke (acute) (chronic)
CPT/HCPCS: 36415; 71046; 74177; 80053; 81001; 81025; 83690; 85025; 87086; 87637; 96361; 96374; 96375; 99284; J2270; J2405; J7030; Q9967

== ENCOUNTER 2024-08-31 11:14 | Emergency (ER) | payer OTHER, SELFPAY ==
--- NOTE | ~2024-08-31 | US_ITS ---
US abdomen limited INDICATION: Mid abdomen pain. PROCEDURE: Realtime right upper abdominal ultrasound. COMPARISON: No prior studies for comparison. FINDINGS: The pancreas is normal without focal mass or pancreatic ductal dilation. Liver echotexture is normal without focal mass or intrahepatic biliary dilatation. There is normal directional flow i n the portal vein. The gallbladder is normal without stones, gallbladder wall thickening or pericholecystic fluid. Comm on bile duct measures 3 mm. No sonographic Patel's sign. IMPRESSION: 1: Normal limited abdominal ultrasound. Reviewed, dictated and finalized at location A.
[2024-08-31 12:09] VITALS: BP 121/78; PULSE 85; RESP 16; O2SAT 99
[2024-08-31 12:11] LABS: BEDSIDEPREGUCG Negative (Negative)
[2024-08-31 12:14] LABS: Hematocrit 41.3 % (37.0-47.0); Hemoglobin 13.8 g/dL (12.0-15.0); Immature Granulocyte Percent A 0.3 % (0-0.5); Lymphocytes Absolute Auto 1.13 K/mm3 (0.9-3.2); Mean Corpuscular HGB Conc 33.4 g/dl (32-36); Mean Corpuscular Hemoglobin 29.9 pg (26-34); Mean Corpuscular Volume 89.6 fl (80-100); Nucleated Red Blood Cells Absolute Auto 0.000 K/mm3 (0.0-0.012); Nucleated Red Blood Cells Perc 0.0 % (0.0-0.2); Platelet Count Result 258 k/mm3 (150-375); Red Blood Count 4.61 M/mm3 (4.2-5.4); White Blood Count 7.4 K/mm3 (4.5-10.0)
[2024-08-31 12:21] LABS: Add Urine Microscopic? NO; Appearance Urine Clear (Clear); Glucose Urine UA Negative (Negative); Leukocyte Esterase Ur Negative LEU/UL (Negative); Nitrate Urine Negative (Negative); Specific Grav Ur 1.008 (1.001-1.035)
[2024-08-31 12:38] LABS: Alanine Aminotransferase 16 U/L (6-35); Albumin Level 4.0 g/dL (3.5-5.1); Alkaline Phosphatase 89 U/L (38-126); Anion Gap 7 mmol/L (4-12); Aspartate Amino Transferase 26 U/L (14-36); Bilirubin,Total 0.2 mg/dL (0.2-1.3); Blood Urea Nitrogen 9 mg/dL (7-17); Calcium 9.1 mg/dL (8.4-10.2); Carbon Dioxide 25 mmol/L (22-30); Chloride 107 mmol/L (98-107); Estimated CRCL calculation 110 ml/min; Estimated Glomerular Filt Rate > 60; Glucose 101 mg/dL (65-110); Lipase 72 U/L (23-300); Potassium 4.5 mmol/L (3.4-5.0); Sodium 139 mmol/L (137-145); Total Protein 7.3 g/dL (6.3-8.2)
--- NOTE | 2024-08-31 12:49 | ED_ITS ---
HPI - General Adult General Chief complaint: Abdominal Pain Stated complaint: abdominal pain, nausea, vomiting Time Seen by Provider: 08/31/24 11:57 History of Present Illness HPI narrative: 24-year-old female presenting to the emergency department for evaluation for diffuse abdominal pain that has been ongoing for the past 3 weeks. Patient states she has had extensive workup for this including diagnosis to urinary tract infections it ovarian cyst and a ruptured ovarian cyst. Patient states the pain is worsened again today. Patient is tearful at time of examination. Patient states the pain is intermittent but she is unsure if it worsens with eating or drinking but she states that does worsen with movement and with palpation. Patient states the pain is worse across the middle of her abdomen but denies any worsening sidedness of the pain. Patient denies any prior history of biliary issues, appendicitis. Patient does have frequent urinary tract infections and history of your cyst. Related Data Allergies Allergy/AdvReac Type Severity Reaction Status Date / Time No Known Allergies Allergy Verified 08/31/24 12:13 Review of Systems 2 Review of Systems: All systems reviewed & are unremarkable except as noted in HPI and below PMFSH Past Medical History Medical History Eczema Surgical History Surgical History No significant past surgical history Family History Family History Father Alive and well Mother Alive and well Social History Social History Smoking status: Never smoker Tobacco type: cigarettes Second hand tobacco smoke exposure: Yes (parents) Alcohol intake: current Substance use: never Living arrangements: with family Occupation/Education: student Gender identity (if verbalized by the patient): Female Exam 2 Narrative: APPEARANCE: Uncomfortable appearing HEAD: normocephalic, atraumatic. EYES: PERRLA/EOMI, conjunctivae clear. NOSE: Normal no drainage EARS:TMS clear with good light reflex. THROAT: Pharynx clear, no exudate. NECK: Supple. No adenopathy, no masses. RESPIRATORY: Airway patent, respirations nonlabored. Clear to auscultation bilaterally, no rales, rhonchi, wheezing. CARDIOVASCULAR: Regular rate and rhythm without murmurs rubs or gallops. ABDOMINAL: Diffuse abdominal tenderness to light palpation, rebound and guarding. No distention, normal bowel sounds MUSCULOSKELETAL: Moves all extremities. Strength/ROM intact, No edema, No calf tenderness. NEURO: Alert. Cranial nerves II through XII intact. Good gait. Good coordination SKIN: Warm, dry. Normal Color PSYCHIATRIC: Tearful affect Course Vital Signs Vital signs: Vital Signs Pulse Rate 85 08/31/24 12:09 Respiratory Rate 16 08/31/24 12:09 Blood Pressure 121/78 08/31/24 12:09 Pulse Oximetry 99 08/31/24 12:09 Oxygen Delivery Room Air 08/31/24 12:09 Pulse Rate 70 08/31/24 15:10 Respiratory Rate 16 08/31/24 15:10 Blood Pressure 130/82 08/31/24 15:10 Pulse Oximetry 98 08/31/24 15:10 Oxygen Delivery Room Air 08/31/24 12:09 Medical Decision Making [facility] Narrative Medical decision making narrative: 24-year-old female presents emergency department for evaluation for intermittent abdominal pain. Patient is currently afebrile with no leukocytosis and hemoglobin of 13.8. Patient has no acute abnormalities on her CMP patient has normal T bili AST ALT alk-phos and lipase. UA was negative for infection. Patient is not . Patient was treated with IV medications for pain control, nausea control treated with 1 L of lactated Ringer's. Ultrasound was ordered to evaluate for possible cholelithiasis, cholecystitis due to prior CT scan showing gallbladder sludge. On re-evaluation patient states she does feel improved. Ultrasound was negative for acute pathology. On re-evaluation patient did admit that she does smoke THC daily. A component of her symptoms may be secondary to cannabinoid hyperemesis syndrome. Patient was strongly encouraged to refrain from THC use. Patient states she does take esomeprazole daily she was encouraged to continue this. Patient will also be provided Zofran for nausea control. The patient will be provided outpatient follow-up with GI. Differential Diagnosis Differential Diagnosis: Colitis, diverticulitis, cholecystitis, ovarian torsion, could have a TAVR versus syndrome, gastritis, esophagitis Vital Signs Vital Signs: Vital Signs Pulse Rate 85 08/31/24 12:09 Respiratory Rate 16 08/31/24 12:09 Blood Pressure 121/78 08/31/24 12:09 Pulse Oximetry 99 08/31/24 12:09 Oxygen Delivery Room Air 08/31/24 12:09 Pulse Rate 70 08/31/24 15:10 Respiratory Rate 16 08/31/24 15:10 Blood Pressure 130/82 08/31/24 15:10 Pulse Oximetry 98 08/31/24 15:10 Oxygen Delivery Room Air 08/31/24 12:09 Lab Data Lab results reviewed: Yes I reviewed the patient's lab results. 08/31/24 12:01 08/31/24 12:01 Labs: Lab Results 08/31/24 08/31/24 Range/Units 12:01 12:08 WBC 7.4 (4.5-10.0) K/mm3 RBC 4.61 (4.2-5.4) M/mm3 Hgb 13.8 (12.0-15.0) g/dL Hct 41.3 (37.0-47.0) % MCV 89.6 (80-100) fl MCH 29.9 (26-34) pg MCHC 33.4 (32-36) g/dl RDW 13.2 (11.5-14.5) % Plt Count 258 (150-375) k/mm3 MPV 10.8 H (7.4-10.4) fl Immature Gran % (Auto) 0.3 (0-0.5) % Neut % (Auto) 77.1 H (45.5-73.1) % Lymph % (Auto) 15.2 L (18.3-44.2) % [place] % (Auto) 4.7 (2.6-8.5) % Eos % (Auto) 2.4 (0-4.4) % Baso % (Auto) 0.3 (0.2-1.2) % Lymph # (Auto) 1.13 (0.9-3.2) K/mm3 [place] # (Auto) 0.4 (0.1-0.6) K/mm3 Eos # (Auto) 0.2 (0-0.3) K/mm3 Baso # (Auto) 0.0 (0.0-0.1) K/mm3 Abs Immat Gran (auto) 0.02 (0.00-0.031) K/mm3 Absolute Neuts (auto) 5.7 (1.3-6.7) K/mm3 Absolute Nucleated RBC 0.000 (0.0-0.012) K/mm3 Nucleated RBC % 0.0 (0.0-0.2) % Sodium 139 (137-145) mmol/L Potassium 4.5 (3.4-5.0) mmol/L Chloride 107 (98-107) mmol/L Carbon Dioxide 25 (22-30) mmol/L Anion Gap 7 (4-12) mmol/L BUN 9 (7-17) mg/dL Creatinine 0.71 (0.7-1.0) mg/dL Estim Creat Clear Calc 110 ml/min Estimated GFR > 60 (59 - ) Glucose 101 (65-110) mg/dL Calcium 9.1 (8.4-10.2) mg/dL Total Bilirubin 0.2 (0.2-1.3) mg/dL AST 26 (14-36) U/L ALT 16 (6-35) U/L Alkaline Phosphatase 89 (38-126) U/L Total Protein 7.3 (6.3-8.2) g/dL Albumin 4.0 (3.5-5.1) g/dL Lipase 72 (23-300) U/L Urine Color Yellow (Yellow) Urine Appearance Clear (Clear) Urine pH 7.5 (5.0-9.0) Ur Specific [place] 1.008 (1.001-1.035) Urine Protein Negative (Negative) mg/dL Urine Glucose (UA) Negative (Negative) mg/dL Urine Ketones Negative (Negative) mg/dL Ur Blood (Man) Negative (Negative) Urine Nitrate Negative (Negative) Urine Bilirubin Negative (Negative) Urine Urobilinogen 0.2 (<2.0) mg/dL Leukocyte Esterase Rfl Negative (Negative) LYNNE/UL POC Urine HCG, Qual Negative (Negative) Imaging Data Radiologist's impression: Impressions Abdomen Ultrasound 08/31/24 13:41 IMPRESSION: 1: Normal limited abdominal ultrasound. Discharge Plan Discharge Clinical Impression: Cyclical vomiting with nausea, Cannabinoid hyperemesis syndrome Patient Disposition: Home Condition: Stable Instructions: Antibiotic Form, Gastritis (DC), Diet for Stomach Ulcers and Gastritis (ED), Abdominal Pain (ED) Additional Instructions: Esomeprazole as directed for at least the next 14 days. Zofran as needed for nausea control. Follow a clear liquid diet for the next 1-3 days. Advance to bland diet as tolerated. Continue to educate yourself on cannabinoid hyperemesis syndrome and refrain from any THC use for at least 30 days. Have close follow-up with GI. If you have any worsening symptoms and please call or return to the emergency department. Patient Language: Yakut Prescriptions: New ondansetron 4 mg tablet,disintegrating 4 mg PO Q8H PRN (Reason: nausea and vomiting) Qty: 14 0RF No Action loratadine [Claritin] 10 mg tablet 10 mg PO DAILY 60 Days Qty: 60 0RF prednisone 20 mg tablet 40 mg PO DAILY 5 Days Qty: 10 0RF triamcinolone acetonide 0.1 % cream 1 applic TOPICAL BID 7 Days Qty: 80 0RF pimecrolimus [Elidel] 1 % cream 1 applic topical BID Qty: 60 0RF Rx Instructions: apply to facial eczema only nitrofurantoin monohyd/m-cryst [Macrobid] 100 mg capsule 100 mg PO Q12H 5 Days Qty: 10 0RF Rx Instructions: must administer with a meal/food cephalexin 500 mg capsule 500 mg PO Q12H 7 Days Qty: 14 0RF ondansetron 4 mg tablet,disintegrating 4 mg PO Q8H PRN (Reason: nausea and vomiting) Qty: 10 0RF Follow-up/Referrals: Nikhil Newton MD [Physician] - UNKNOWN,DOCTOR [Primary Care Provider] -
--- NOTE | 2024-08-31 13:08 | PC.NURSE ---
ultrasound at bedside
[2024-08-31] MEDS: LACTATED RINGERS 1,000 ML 999 ML IV CONT (13:09)
[2024-08-31] MEDS: ONDANSETRON INJ 4 MG/2 ML VIAL IV PUSH (13:09)
[2024-08-31] MEDS: PANTOPRAZOLE SODIUM IV 40 MG VIAL IV PUSH (13:09)
[2024-08-31] MEDS: HYDROmorphone HCL INJ (*CRX) 2 MG/ML VIAL 1 MG IV PUSH (13:10)
[2024-08-31 14:15] VITALS: BP 119/72; PULSE 72; RESP 14; O2SAT 98
[2024-08-31 15:10] VITALS: BP 130/82; PULSE 70; RESP 16; O2SAT 98
== END 2024-08-31 15:15 | disposition home or self-care (01) ==
PROVIDERS: Emergency Provider Emergency Medicine
DX: R11.15 Cyclical vomiting syndrome unrelated to migraine (principal); R11.11 Vomiting without nausea; F12.90 Cannabis use, unspecified, uncomplicated
CPT/HCPCS: 36415; 76705; 80053; 81003; 81025; 83690; 85025; 96361; 96374; 96375; 99284; J1171; J2405; J2470; J7120

== ENCOUNTER 2024-09-02 09:31 | Emergency (ER) | payer OTHER, SELFPAY ==
--- NOTE | ~2024-09-02 | CT_ITS ---
CLINICAL INDICATION: Lower abdominal pain COMPARISON: 08/27/2024 and 08/14/2024. TECHNIQUE: Multiple contiguous axial images of the abdomen and pelvis were performed following the ad ministration of with 100 mL Omnipaque-350 intravenous contrast The dose-length product (DLP) was 450.90 mGy-cm. Automated exposure control and iterative reconstruction technique were employed. FINDINGS/OBSERVATIONS: Visualized lower thorax: The bilateral lung bases are clear. The heart is of normal size, without pericardial effusion. Liver: The liver demonstrates homogeneous enhancement and is not enlarged. Gallbladder and biliary system: The gallbladder is only minimally distended, and otherwise unremarkable. Pancreas: The pancreas enhances homogeneously without ductal dilatation. Spleen: The spleen enhances homogeneously and is not enlarged. Kidneys: The bilateral kidneys enhance symmetrically without hydronephrosis or renal calculi. Adrenal glands: Unremarkable. Gastrointestinal tract: Fecal stasis within the colon. Appendix: The air-filled appendix is of normal caliber (axial series, images 100 - 108). Vasculature: Unremarkable. Lymph nodes: No pathologically enlarged or morphologically suspicious lymph nodes within the retroperitoneum or at the root of the mesentery. Pelvic structures: The bladder is distended, and otherwise unremarkable. 17 mm involuting cyst within the right ovary. The uterus is anteverted and anteflexed. The left ovary is unremarkable. Trace free fluid within the right adnexa. Body wall and musculoskeletal: Small fat-containing umbilical hernia. No significant degenerative disease within the lower thoracic or lumbosacral spine. IMPRESSION: 17 mm involuting cyst within the right ovary with surrounding free fluid. Normal appendix. Reviewed, dictated and finalized at location A.
[2024-09-02 09:42] VITALS: BP 134/77; PULSE 78; RESP 16; TEMP 36.4; O2SAT 98
[2024-09-02 10:05] LABS: BEDSIDEPREGUCG Negative (Negative)
[2024-09-02 10:24] LABS: Hematocrit 41.9 % (37.0-47.0); Hemoglobin 14.2 g/dL (12.0-15.0); Immature Granulocyte Percent A 0.4 % (0-0.5); Lymphocytes Absolute Auto 1.52 K/mm3 (0.9-3.2); Mean Corpuscular HGB Conc 33.9 g/dl (32-36); Mean Corpuscular Hemoglobin 30.0 pg (26-34); Mean Corpuscular Volume 88.4 fl (80-100); Nucleated Red Blood Cells Absolute Auto 0.000 K/mm3 (0.0-0.012); Nucleated Red Blood Cells Perc 0.0 % (0.0-0.2); Platelet Count Result 289 k/mm3 (150-375); Red Blood Count 4.74 M/mm3 (4.2-5.4); White Blood Count 8.4 K/mm3 (4.5-10.0)
[2024-09-02 10:35] LABS: Add Urine Microscopic? YES; Appearance Urine Clear (Clear); Glucose Urine UA Negative (Negative); Leukocyte Esterase Ur Trace LEU/UL (Negative); Nitrate Urine Negative (Negative); Non Pathogenic Casts 0-2; Specific Grav Ur 1.017 (1.001-1.035)
[2024-09-02 10:43] LABS: Alanine Aminotransferase 17 U/L (6-35); Albumin Level 4.5 g/dL (3.5-5.1); Alkaline Phosphatase 90 U/L (38-126); Anion Gap 9 mmol/L (4-12); Aspartate Amino Transferase 26 U/L (14-36); Bilirubin,Total 0.3 mg/dL (0.2-1.3); Blood Urea Nitrogen 12 mg/dL (7-17); Calcium 9.6 mg/dL (8.4-10.2); Carbon Dioxide 23 mmol/L (22-30); Chloride 102 mmol/L (98-107); Estimated CRCL calculation 106 ml/min; Estimated Glomerular Filt Rate > 60; Glucose 93 mg/dL (65-110); Lipase 55 U/L (23-300); Potassium 4.2 mmol/L (3.4-5.0); Sodium 134 mmol/L (137-145); Total Protein 7.9 g/dL (6.3-8.2)
[2024-09-02 12:15] VITALS: BP 132/89; PULSE 77; TEMP 36.9; O2SAT 99
[2024-09-02 14:16] VITALS: BP 146/83; PULSE 74; TEMP 36.8; O2SAT 99
--- NOTE | 2024-09-02 14:42 | ED.FEMALEGU ---
HPI - Female Genitourinary General Chief complaint: [employer] Stated complaint: pelvic pain Time Seen by Provider: 09/02/24 14:20 Focused HPI: Patient is a 24-year-old female who presents to the ER with complaints of bilateral abdominal pain that radiates to her back. She reports she has had the symptoms since beginning of August. Patient reports she was worked up at an outside facility and they told her she had ruptured ovarian cyst. She reports the pain has continued and radiates from her hips up to her spine into her chest sometimes. Patient endorses clear vaginal discharge. She denies any recent fevers, concern for STDs, or risk of . Patient denies any other medical history relevant to this ER visit. GENERAL: Ill-appearing, well-nourished, and in no acute distress. HEAD: Normocephalic, atraumatic. CHEST: Clear to auscultation. ?No respiratory distress. HEART: Regular rate and rhythm.? NEURO: ?Alert and oriented x3. Tearful Patient screened in triage and initial orders placed.? ?Additional care and disposition to be based upon?diagnostic testing and treatment. Related Data Home Medications ?Medication ?Instructions ?Recorded ?Confirmed ?Last Taken ?Type esomeprazole magnesium 40 mg 40 mg PO DAILY 09/01/24 09/01/24 Unknown History capsule,delayed release sertraline 100 mg tablet (Zoloft) 100 mg PO DAILY 09/01/24 09/01/24 Unknown History Allergies Allergy/AdvReac Type Severity Reaction Status Date / Time No Known Allergies Allergy Verified 09/02/24 09:42 [facility] Past Medical History Medical History Eczema Surgical History Surgical History No significant past surgical history Family History Family History Father Alive and well Mother Alive and well Social History Social History Smoking status: Never smoker Tobacco type: cigarettes Second hand tobacco smoke exposure: Yes (parents) Alcohol intake: current Substance use: never Living arrangements: with family Occupation/Education: student Gender identity (if verbalized by the patient): Female Course Vital Signs Vital signs: Vital Signs Temperature 36.4 C 09/02/24 09:42 Pulse Rate 78 09/02/24 09:42 Respiratory Rate 16 09/02/24 09:42 Blood Pressure 134/77 09/02/24 09:42 Pulse Oximetry 98 09/02/24 09:42 Temperature 36.8 C 09/02/24 14:16 Pulse Rate 74 09/02/24 14:16 Respiratory Rate 16 09/02/24 09:42 Blood Pressure 146/83 H 09/02/24 14:16 Pulse Oximetry 99 09/02/24 14:16 MDM - Female Genitourinary Lab Data 09/02/24 09:54 09/02/24 09:54 Labs: Lab Results 09/02/24 09/02/24 09/02/24 Range/Units 09:54 10:02 10:03 WBC 8.4 (4.5-10.0) K/mm3 RBC 4.74 (4.2-5.4) M/mm3 Hgb 14.2 (12.0-15.0) g/dL Hct 41.9 (37.0-47.0) % MCV 88.4 (80-100) fl MCH 30.0 (26-34) pg MCHC 33.9 (32-36) g/dl RDW 13.3 (11.5-14.5) % Plt Count 289 (150-375) k/mm3 MPV 11.1 H (7.4-10.4) fl Immature Gran % (Auto) 0.4 (0-0.5) % Neut % (Auto) 74.4 H (45.5-73.1) % Lymph % (Auto) 18.1 L (18.3-44.2) % [place] % (Auto) 5.5 (2.6-8.5) % Eos % (Auto) 1.4 (0-4.4) % Baso % (Auto) 0.2 (0.2-1.2) % Lymph # (Auto) 1.52 (0.9-3.2) K/mm3 [place] # (Auto) 0.5 (0.1-0.6) K/mm3 Eos # (Auto) 0.1 (0-0.3) K/mm3 Baso # (Auto) 0.0 (0.0-0.1) K/mm3 Abs Immat Gran (auto) 0.03 (0.00-0.031) K/mm3 Absolute Neuts (auto) 6.3 (1.3-6.7) K/mm3 Absolute Nucleated RBC 0.000 (0.0-0.012) K/mm3 Nucleated RBC % 0.0 (0.0-0.2) % Sodium 134 L (137-145) mmol/L Potassium 4.2 (3.4-5.0) mmol/L Chloride 102 (98-107) mmol/L Carbon Dioxide 23 (22-30) mmol/L Anion Gap 9 (4-12) mmol/L BUN 12 (7-17) mg/dL Creatinine 0.75 (0.7-1.0) mg/dL Estim Creat Clear Calc 106 ml/min Estimated GFR > 60 (59 - ) Glucose 93 (65-110) mg/dL Calcium 9.6 (8.4-10.2) mg/dL Total Bilirubin 0.3 (0.2-1.3) mg/dL AST 26 (14-36) U/L ALT 17 (6-35) U/L Alkaline Phosphatase 90 (38-126) U/L Total Protein 7.9 (6.3-8.2) g/dL Albumin 4.5 (3.5-5.1) g/dL Lipase 55 (23-300) U/L Urine Color Yellow (Yellow) Urine Appearance Clear (Clear) Urine pH 8.0 (5.0-9.0) Ur Specific [place] 1.017 (1.001-1.035) Urine Protein Negative (Negative) mg/dL Urine Glucose (UA) Negative (Negative) mg/dL Urine Ketones 1+ H (Negative) mg/dL Ur Blood (Man) Negative (Negative) Urine Nitrate Negative (Negative) Urine Bilirubin Negative (Negative) Urine Urobilinogen 1.0 (<2.0) mg/dL Leukocyte Esterase Rfl Trace H (Negative) LYNNE/UL Urine RBC 0-2 (0-2) /hpf Urine WBC 0-5 (0-3) /hpf Ur Squamous Epith Cells Occasional (Few) /hpf Urine Bacteria Rare /hpf Urine Casts 0-2 POC Urine HCG, Qual Negative (Negative) C. trachomatis (PCR) Not detected (NOT DETECTE) N. gonorrhoeae (PCR) Not detected (NOT DETECTE) T. vaginalis (PCR) Not detected (NOT DETECTE) Discharge Plan Discharge Clinical Impression: Abdominal pain Patient Disposition: Home Condition: Stable Instructions: Abdominal Pain (ED) Additional Instructions: RETURN IF SYMPTOMS ARE WORSENING , CALL YOUR FAMILY PHYSICIAN FOR APPOINTMENT, TAKE TYLENOL NEEDED FOR ACHES AND PAIN, CONTINUE HOME MEDICATIONS. Patient Language: Swedish Prescriptions: New dicyclomine 10 mg capsule 10 mg PO QID Qty: 20 0RF ondansetron HCl 4 mg tablet 4 mg PO Q4H Qty: 10 0RF Rx Instructions: 1st dose 1-2 hr before radiation No Action esomeprazole magnesium 40 mg capsule,delayed release(DR/EC) 40 mg PO DAILY sertraline [Zoloft] 100 mg tablet 100 mg PO DAILY doxycycline hyclate 100 mg capsule 100 mg PO BID 14 Days Qty: 28 0RF metronidazole 500 mg tablet 500 mg PO Q12H 14 Days Qty: 28 0RF Follow-up/Referrals: Nikhil Newton MD [Physician] - 09/07/24 UNKNOWN,DOCTOR [Primary Care Provider] -
--- NOTE | 2024-09-02 16:11 | ED_ITS ---
HPI - Female Genitourinary General Chief complaint: REPA[employer] MECH[employer]IC Stated complaint: pelvic pain Time Seen by Provider: 09/02/24 14:20 Source: patient Mode of arrival: ambulatory Limitations: no limitations History of Present Illness HPI Narrative: 24 YEARS OLD WHITE FEMALE CAME TO THE ED BY PRIVATE CAR WITH HER SIGNIFICANT OTHER COMPLAINING OF ABDOMINAL PAIN FOR THE LAST FEW WEEKS. WAS SEEN BY OBGYN YESTERDAY. HER BOYFRIEND TELLING ME THAT SHE VOMIT ONCE EVERY DAY IN THE MORNING. SHE DENIES ANY FEVER OR CHILLS OR DIARRHEA OR VAGINAL BLEEDING OR DISCHARGE. PATIENT WAS SEEN BY DIFFERENT EMERGENCY ROOM AND DIFFERENT PHYSICIANS FOR THE LAST FEW WEEKS WITHOUT SPECIFIC DIAGNOSIS. HISTORY OF DEPRESSION AND ANXIETY, AND MARIJUANA USE. Related Data Home Medications ?Medication ?Instructions ?Recorded ?Confirmed ?Last Taken ?Type esomeprazole magnesium 40 mg 40 mg PO DAILY 09/01/24 09/01/24 Unknown History capsule,delayed release sertraline 100 mg tablet (Zoloft) 100 mg PO DAILY 09/01/24 09/01/24 Unknown History Allergies Allergy/AdvReac Type Severity Reaction Status Date / Time No Known Allergies Allergy Verified 09/02/24 09:42 Review of Systems 2 Review of Systems: All systems reviewed & are unremarkable except as noted in HPI and below PMFSH Past Medical History Medical History Eczema Surgical History Surgical History No significant past surgical history Family History Family History Father Alive and well Mother Alive and well Social History Social History Smoking status: Never smoker Tobacco type: cigarettes Second hand tobacco smoke exposure: Yes (parents) Alcohol intake: current Substance use: never Living arrangements: with family Occupation/Education: student Gender identity (if verbalized by the patient): Female Exam 2 Narrative: GENERAL APPEARANCE: WELL-DEVELOPED, WELL-NOURISHED SKIN: NORMAL COLOR HEAD: NORMOCEPHALIC, NONTRAUMATIC EYES: CLEAR CONJUNCTIVA ENT: OROPHARYNX NORMAL, EARS NORMAL, NOSE NORMAL NECK: SUPPLE, NONTENDER CHEST AND RESPIRATORY: AIRWAY PATENT, NO RESPIRATORY DISTRESS, NO ACCESSORY MUSCLE USE HEART: REGULAR RATE/RHYTHM ABDOMEN: SOFT, DIFFUSE ABDOMINAL TENDERNESS, DIFFUSE FLANK TENDERNESS BILATERALLY, NO ORGANOMEGALY, QUIET BOWEL SOUNDS VASCULAR: NORMAL PERIPHERAL PULSES, NORMAL CAPILLARY REFILL. 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 TESTED, NO GROSS MOTOR DEFICIT Course Vital Signs Vital signs: Vital Signs Temperature 36.4 C 09/02/24 09:42 Pulse Rate 78 09/02/24 09:42 Respiratory Rate 16 09/02/24 09:42 Blood Pressure 134/77 09/02/24 09:42 Pulse Oximetry 98 09/02/24 09:42 Temperature 36.8 C 09/02/24 14:16 Pulse Rate 74 09/02/24 14:16 Respiratory Rate 16 09/02/24 09:42 Blood Pressure 146/83 H 09/02/24 14:16 Pulse Oximetry 99 09/02/24 14:16 MDM - Female Genitourinary MDM Narrative Medical decision making narrative: PATIENT PRESENTS WITH ABDOMINAL PAIN FOR WEEKS VITAL SIGNS ARE STABLE PHYSICAL EXAMINATION SHOWING DIFFUSE ABDOMINAL TENDERNESS ALL OVER, DIFFUSE FLANK TENDERNESS DIFFERENTIAL DIAGNOSIS INCLUDE ANXIETY/DEPRESSION INDUCING ABDOMINAL PAIN, IBS, URINARY TRACT INFECTION, COLITIS, DIVERTICULITIS, CONSTIPATION. BLOOD WORKUP TODAY INCLUDES CBC, CMP, LIPASE SHOWED INSIGNIFICANT ABNORMALITY URINALYSIS SHOWED NO ACUTE ABNORMALITY CT ABDOMEN AND PELVIS WITH IV CONTRAST SHOWED 70 MM BLUE TAKING CYST WITHIN THE RIGHT OVARY WITH SURROUNDING FREE FLUID OTHERWISE WITHIN NORMAL LIMIT DIAGNOSIS ABDOMINAL PAIN OF UNKNOWN ETIOLOGY DISCHARGED ON BENTYL, ZOFRAN FOLLOW-UP WITH OBGYN AND FISH SMOKER FOR FURTHER EVALUATION. DEPRESSION INDUCING ABDOMINAL PAIN, IBS ARE MY CONCERN Differential Diagnosis Differential diagnosis: Likely other ( ABOVE) Medical Records Attestation: I reviewed the patient's medical records. Lab Data Attestation: I reviewed the patient's lab results. 09/02/24 09:54 09/02/24 09:54 Labs: Lab Results 09/02/24 09/02/24 09/02/24 Range/Units 09:54 10:02 10:03 WBC 8.4 (4.5-10.0) K/mm3 RBC 4.74 (4.2-5.4) M/mm3 Hgb 14.2 (12.0-15.0) g/dL Hct 41.9 (37.0-47.0) % MCV 88.4 (80-100) fl MCH 30.0 (26-34) pg MCHC 33.9 (32-36) g/dl RDW 13.3 (11.5-14.5) % Plt Count 289 (150-375) k/mm3 MPV 11.1 H (7.4-10.4) fl Immature Gran % (Auto) 0.4 (0-0.5) % Neut % (Auto) 74.4 H (45.5-73.1) % Lymph % (Auto) 18.1 L (18.3-44.2) % [place] % (Auto) 5.5 (2.6-8.5) % Eos % (Auto) 1.4 (0-4.4) % Baso % (Auto) 0.2 (0.2-1.2) % Lymph # (Auto) 1.52 (0.9-3.2) K/mm3 [place] # (Auto) 0.5 (0.1-0.6) K/mm3 Eos # (Auto) 0.1 (0-0.3) K/mm3 Baso # (Auto) 0.0 (0.0-0.1) K/mm3 Abs Immat Gran (auto) 0.03 (0.00-0.031) K/mm3 Absolute Neuts (auto) 6.3 (1.3-6.7) K/mm3 Absolute Nucleated RBC 0.000 (0.0-0.012) K/mm3 Nucleated RBC % 0.0 (0.0-0.2) % Sodium 134 L (137-145) mmol/L Potassium 4.2 (3.4-5.0) mmol/L Chloride 102 (98-107) mmol/L Carbon Dioxide 23 (22-30) mmol/L Anion Gap 9 (4-12) mmol/L BUN 12 (7-17) mg/dL Creatinine 0.75 (0.7-1.0) mg/dL Estim Creat Clear Calc 106 ml/min Estimated GFR > 60 (59 - ) Glucose 93 (65-110) mg/dL Calcium 9.6 (8.4-10.2) mg/dL Total Bilirubin 0.3 (0.2-1.3) mg/dL AST 26 (14-36) U/L ALT 17 (6-35) U/L Alkaline Phosphatase 90 (38-126) U/L Total Protein 7.9 (6.3-8.2) g/dL Albumin 4.5 (3.5-5.1) g/dL Lipase 55 (23-300) U/L Urine Color Yellow (Yellow) Urine Appearance Clear (Clear) Urine pH 8.0 (5.0-9.0) Ur Specific [place] 1.017 (1.001-1.035) Urine Protein Negative (Negative) mg/dL Urine Glucose (UA) Negative (Negative) mg/dL Urine Ketones 1+ H (Negative) mg/dL Ur Blood (Man) Negative (Negative) Urine Nitrate Negative (Negative) Urine Bilirubin Negative (Negative) Urine Urobilinogen 1.0 (<2.0) mg/dL Leukocyte Esterase Rfl Trace H (Negative) LYNNE/UL Urine RBC 0-2 (0-2) /hpf Urine WBC 0-5 (0-3) /hpf Ur Squamous Epith Cells Occasional (Few) /hpf Urine Bacteria Rare /hpf Urine Casts 0-2 POC Urine HCG, Qual Negative (Negative) C. trachomatis (PCR) Not detected (NOT DETECTE) N. gonorrhoeae (PCR) Not detected (NOT DETECTE) T. vaginalis (PCR) Not detected (NOT DETECTE) Imaging Data Radiologist's impression: Impressions Abdomen/Pelvis CT 09/02/24 15:56 IMPRESSION: 17 mm involuting cyst within the right ovary with surrounding free fluid. Normal appendix. Critical Care Time Critical Care Time Critical Care Time: No Discharge Plan Discharge Clinical Impression: Abdominal pain Patient Disposition: Home Condition: Stable Instructions: Abdominal Pain (ED) Additional Instructions: RETURN IF SYMPTOMS ARE WORSENING , CALL YOUR FAMILY PHYSICIAN FOR APPOINTMENT, TAKE TYLENOL NEEDED FOR ACHES AND PAIN, CONTINUE HOME MEDICATIONS. Patient Language: Citizen [place] Prescriptions: New dicyclomine 10 mg capsule 10 mg PO QID Qty: 20 0RF ondansetron HCl 4 mg tablet 4 mg PO Q4H Qty: 10 0RF Rx Instructions: 1st dose 1-2 hr before radiation No Action esomeprazole magnesium 40 mg capsule,delayed release(DR/EC) 40 mg PO DAILY sertraline [Zoloft] 100 mg tablet 100 mg PO DAILY doxycycline hyclate 100 mg capsule 100 mg PO BID 14 Days Qty: 28 0RF metronidazole 500 mg tablet 500 mg PO Q12H 14 Days Qty: 28 0RF Follow-up/Referrals: Nikhil Newton MD [Physician] - 09/07/24 UNKNOWN,DOCTOR [Primary Care Provider] -
[2024-09-02 16:14] LABS: Trichomonas Vag PCR NOT DETECTED (NOT DETECTE)
[2024-09-02] MEDS: IBUPROFEN 600 MG TABLET PO (16:35)
[2024-09-02] MEDS: ACETAMINOPHEN 325 MG TABLET 650 MG PO (16:35)
== END 2024-09-02 17:41 | disposition home or self-care (01) ==
PROVIDERS: Registered Nurse; Emergency Provider Emergency Medicine
DX: R10.9 Unspecified abdominal pain (principal); F32.A Depression, unspecified; F41.9 Anxiety disorder, unspecified; N83.201 Unspecified ovarian cyst, right side; Z77.22 Contact with and (suspected) exposure to environmental tobacco smoke (acute) (chronic)
CPT/HCPCS: 36415; 74177; 80053; 81001; 81025; 83690; 85025; 87491; 87591; 87661; 99284; A9270; Q9967

== ENCOUNTER 2024-09-05 09:11 | Outpatient (CLI) | payer OTHER, SELFPAY ==
--- NOTE | ~2024-09-05 | US_ITS ---
EXAMINATION: US pelvic complete w TV INDICATION: Pelvic pain. Comparison:Ultrasound dated 08/14/2024 TECHNIQUE: Multiple transabdominal and endovaginal sonographic images of the pelvis performed. FINDINGS: The uterus measures 7.6 x 3.5 x 4 cm. The endometrial complex measures 11 mm. Endometrium i s heterogeneous. The right ovary measures 2.7 x 2.7 x 2.5 cm and the left ovary measures 3.3 x 1.9 x 3.8 cm. There is a right ovarian cyst measuring 2.3 cm. There are small follicles in each ovary. Normal doppler signal in both ovaries. There is no free fluid in the pelvis. There are no abnormal masses seen on either side. IMPRESSION: 1. Right ovarian cyst measuring 2.3 cm. Reviewed, dictated and finalized at location B.
== END 2024-09-05 09:12 | disposition home or self-care (01) ==
LOC: MICIMG 09:12
PROVIDERS: PCP Nurse Practitioner Adult Health; Visit Provider Nurse Practitioner Obstetrics & Gynecology
DX: R10.2 Pelvic and perineal pain (principal); N83.201 Unspecified ovarian cyst, right side
CPT/HCPCS: 76830; 76856

== ENCOUNTER 2024-10-28 16:49 | Emergency (ER) | payer OTHER, SELFPAY ==
--- NOTE | ~2024-10-28 | US_ITS ---
EXAMINATION: US abdomen limited DATE: 10/28/2024 20:57 INDICATION: Right upper cord and abdominal pain with positive Patel sign TECHNIQUE: Multiple grayscale and Doppler ultrasound images of the abdomen were obtained. COMPARISON: 09/02/2024 FINDINGS: The pancreatic head and body are normal in appearance. The pancreatic tail is not visualized. Liver has normal echogenicity and contour, with a smooth surface. No liver lesion identified. No intrahepatic biliary duct dilation suspected. Portal venous flow was seen in the hepatopetal, normal direction and has normal Doppler waveform. The gallbladder is normal in appearance. There is no cholelithiasis. The common bile duct measures 2 mm, which is normal. Sonographic Patel sign was reported as positive by the technician assistant.Visualized inferior vena cava is normal. Visualized portions of right kidney demonstrates normal echogenicity with no hydronephrosis. IMPRESSION: 1. Positive sonographic Patel's on but with normal-appearing gallbladder with no dilation, wall thickening or cholelithiasis. If there is continued clinical concern for acute cholecystitis could consider HIDA scan for further evaluation. Reviewed, dictated and finalized at location A. IMPRESSION: 1. Positive sonographic Patel's on but with normal-appearing gallbladder with no dilation, wall thickening or cholelithiasis. If there is continued clinical concern for acute cholecystitis could consider HIDA scan for further evaluation .
[2024-10-28 16:51] VITALS: BP 141/90; PULSE 92; RESP 16; TEMP 36.8; O2SAT 99
[2024-10-28 19:04] LABS: BEDSIDEPREGUCG Negative (Negative)
[2024-10-28 19:05] LABS: Hematocrit 40.4 % (37.0-47.0); Hemoglobin 13.4 g/dL (12.0-15.0); Immature Granulocyte Percent A 0.3 % (0-0.5); Lymphocytes Absolute Auto 2.39 K/mm3 (0.9-3.2); Mean Corpuscular HGB Conc 33.2 g/dl (32-36); Mean Corpuscular Hemoglobin 30.0 pg (26-34); Mean Corpuscular Volume 90.4 fl (80-100); Nucleated Red Blood Cells Absolute Auto 0.000 K/mm3 (0.0-0.012); Nucleated Red Blood Cells Perc 0.0 % (0.0-0.2); Platelet Count Result 267 k/mm3 (150-375); Red Blood Count 4.47 M/mm3 (4.2-5.4); White Blood Count 7.3 K/mm3 (4.5-10.0)
[2024-10-28 19:10] LABS: Add Urine Microscopic? YES; Appearance Urine Clear (Clear); Glucose Urine UA Negative (Negative); Leukocyte Esterase Ur Negative LEU/UL (Negative); Nitrate Urine Negative (Negative); Non Pathogenic Casts 0-2; Specific Grav Ur 1.028 (1.001-1.035)
[2024-10-28 19:17] LABS: Alanine Aminotransferase 16 U/L (6-35); Albumin Level 4.3 g/dL (3.5-5.1); Alkaline Phosphatase 95 U/L (38-126); Anion Gap 6 mmol/L (4-12); Aspartate Amino Transferase 28 U/L (14-36); Bilirubin,Total 0.3 mg/dL (0.2-1.3); Blood Urea Nitrogen 13 mg/dL (7-17); Calcium 9.0 mg/dL (8.4-10.2); Carbon Dioxide 25 mmol/L (22-30); Chloride 107 mmol/L (98-107); Estimated CRCL calculation 104 ml/min; Estimated Glomerular Filt Rate > 60; Glucose 100 mg/dL (65-110); Lipase 74 U/L (23-300); Potassium 3.6 mmol/L (3.4-5.0); Sodium 138 mmol/L (137-145); Total Protein 7.7 g/dL (6.3-8.2)
--- NOTE | 2024-10-28 19:26 | ED.ABDPAIN ---
HPI - Abdominal Pain General Chief Complaint: Abdominal Pain Stated Complaint: abd pain Time Seen by Provider: 10/28/24 18:44 Source: patient and family Mode of arrival: ambulatory Limitations: no limitations History of Present Illness HPI narrative: Patient presents with abdominal pain occurring intermittently since August. She has been seen multiple times before and diagnosed with ovarian cysts. Most recent episode symptoms started yesterday and persisted into today although he states pain feels somewhat different than previous. She has been having nausea vomiting. She had 1 episode of emesis today and 2 episodes yesterday, nonbloody. Although she reports that she has been having diarrhea occasionally, she also remains pending occasionally constipated and occasionally having diarrhea. Nonbloody. No previous abdominal surgeries. She reports pain in her right upper quadrant, 6 or 7 of 10 in severity. Last oral intake was today when she had a chicken marilee and fries. Her PCP is through [facility] , TRIN[facility] Velez. She also has an Ob Gyne here although she cannot recall the name but they are here at [facility]. She is not upcoming appointment to see gastroenterology. No fevers or chills although last night she states she felt hot. She does use marijuana near daily for pain. Her menstrual cycle started on Saturday and ended either yesterday or today. She denies any heather bleeding but occasionally when she wipes she was see pink tinge. Otherwise she denies any dysuria or hematuria. Appetite sometimes there. No sick contacts at work. Related Data Home Medications ?Medication ?Instructions ?Recorded ?Confirmed ?Last Taken ?Type esomeprazole magnesium 40 mg 40 mg PO DAILY 09/01/24 09/24/24 Unknown History capsule,delayed release sertraline 100 mg tablet (Zoloft) 100 mg PO DAILY 09/01/24 09/24/24 Unknown History Allergies Allergy/AdvReac Type Severity Reaction Status Date / Time No Known Allergies Allergy Verified 10/28/24 16:53 [facility] Past Medical History Medical History (Updated 10/29/24 @ 00:01 by Vicky Cordero) GERD (gastroesophageal reflux disease) Nausea and vomiting Eczema Surgical History Surgical History No significant past surgical history Family History Family History Father Alive and well Mother Alive and well Social History Social History (Updated 10/29/24 @ 22:08 by Meggan Daly MD) Smoking status: Never smoker Tobacco type: cigarettes Second hand tobacco smoke exposure: Yes (parents) Alcohol intake: current Substance use: never Substance use type: marijuana Other substance usage details: near daily for pain Living arrangements: with family Occupation/Education: student Gender identity (if verbalized by the patient): Female Exam Narrative: GENERAL: Well-appearing, well-nourished, and in no acute distress. HEAD: Normocephalic, atraumatic. EYES: Non injected, non icteric ENT: Nares clear, no rhinorrhea or epistaxis. Gross auditory acuity intact. NECK: Supple. No meningismus. CHEST: Speaking in full sentences. No respiratory distress. HEART: Regular rate and rhythm. . ABDOMEN: Soft, nondistended. Mild epigastric TTP, also RUQ TTP. Not peritoneal. Patel sign positive. EXTREMITIES: Normal range of motion. No lower extremity edema. SKIN: Warm, dry, no rash. NEURO: No focal deficits. Alert and oriented. Answering questions. Following commands. Normal speech without aphasia or dysarthria. PSYCH: Congruent mood and affect. Course Vital Signs Vital signs: Vital Signs Temperature 98.2 F 10/28/24 16:51 Pulse Rate 92 10/28/24 16:51 Respiratory Rate 16 10/28/24 16:51 Blood Pressure 141/90 H 10/28/24 16:51 Pulse Oximetry 99 10/28/24 16:51 Oxygen Delivery Room Air 10/28/24 16:51 Temperature 98.2 F 10/28/24 16:51 Pulse Rate 66 10/28/24 22:01 Respiratory Rate 18 10/28/24 22:01 Blood Pressure 127/69 10/28/24 22:01 Pulse Oximetry 98 10/28/24 22:01 Oxygen Delivery Room Air 10/28/24 16:51 MDM - Abdominal Pain MDM Narrative Medical decision making narrative: Patient presents with report of epigastric/RUQ abdominal pain. Previous work ups have noted ovarian cyst but she states this feels different. In the emergency department she is afebrile with acceptable vital signs, mild hypertension. test negative. Chemistry unremarkable. Lipase within normal limits. No leukocytosis. Patient does not have anemia or thrombocytopenia. In general only 1 mild abnormalities on the differential. She has microscopic hematuria on urinalysis but is also at the tail end of her menses. Patient given morphine and Zofran. She is reassessed at 9:10 p.m. and reports her pain is still present, had worsened during the ultrasound she just underwent but is 4/10 in severity, improved from the 6 or 7/10 earlier. We discussed biliary colic. She states that chicken marilee is baked and thus not very greasy. Recalls that she has had similar episodes in August and other month but has never discussed elective removal or seen a general surgeon to discuss biliary pathology. Patient will be given famotidine. She states that she took her ondansetron and dicyclomine already today but she has been having trouble taking her he has omeprazole at home in the morning and so has been taking at home at night. Will give pantoprazole here. Also another dose of Bentyl will not hurt. Feeling a little better when reassessed at 9:45 p.m.. Otherwise stable for discharge though aware that if patient were to present again in the near future may require CT imaging and/or HIDA scan as recommended by radiologist per US. Differential Diagnosis Differential diagnosis: Likely abdominal pain, constipation, endometriosis, gastroenteritis, pancreatitis and other (; cannabinoid hyperemesis syndrome; spectrum of biliary pathology; gastritis; GERD; peptic ulcer disease) Medical Records Medical records narrative: Reviewed GI notes: EGD: No history of EGD. COLONOSCOPY: No history of colonoscopy. Lab Data Attestation: I reviewed the patient's lab results. 10/28/24 18:56 10/28/24 18:56 Labs: Lab Results 10/28/24 10/28/24 10/28/24 Range/Units 18:56 19:02 19:45 WBC 7.3 (4.5-10.0) K/mm3 RBC 4.47 (4.2-5.4) M/mm3 Hgb 13.4 (12.0-15.0) g/dL Hct 40.4 (37.0-47.0) % MCV 90.4 (80-100) fl MCH 30.0 (26-34) pg MCHC 33.2 (32-36) g/dl RDW 13.0 (11.5-14.5) % Plt Count 267 (150-375) k/mm3 MPV 10.8 H (7.4-10.4) fl Immature Gran % (Auto) 0.3 (0-0.5) % Neut % (Auto) 56.9 (45.5-73.1) % Lymph % (Auto) 32.6 (18.3-44.2) % [place] % (Auto) 6.7 (2.6-8.5) % Eos % (Auto) 3.1 (0-4.4) % Baso % (Auto) 0.4 (0.2-1.2) % Lymph # (Auto) 2.39 (0.9-3.2) K/mm3 [place] # (Auto) 0.5 (0.1-0.6) K/mm3 Eos # (Auto) 0.2 (0-0.3) K/mm3 Baso # (Auto) 0.0 (0.0-0.1) K/mm3 Abs Immat Gran (auto) 0.02 (0.00-0.031) K/mm3 Absolute Neuts (auto) 4.2 (1.3-6.7) K/mm3 Absolute Nucleated RBC 0.000 (0.0-0.012) K/mm3 Nucleated RBC % 0.0 (0.0-0.2) % Sodium 138 (137-145) mmol/L Potassium 3.6 (3.4-5.0) mmol/L Chloride 107 (98-107) mmol/L Carbon Dioxide 25 (22-30) mmol/L Anion Gap 6 (4-12) mmol/L BUN 13 (7-17) mg/dL Creatinine 0.77 (0.7-1.0) mg/dL Estim Creat Clear Calc 104 ml/min Estimated GFR > 60 (59 - ) Glucose 100 (65-110) mg/dL Calcium 9.0 (8.4-10.2) mg/dL Total Bilirubin 0.3 (0.2-1.3) mg/dL AST 28 (14-36) U/L ALT 16 (6-35) U/L Alkaline Phosphatase 95 (38-126) U/L Total Protein 7.7 (6.3-8.2) g/dL Albumin 4.3 (3.5-5.1) g/dL Lipase 74 (23-300) U/L Urine Color Yellow (Yellow) Urine Appearance Clear (Clear) Urine pH 5.5 (5.0-9.0) Ur Specific [place] 1.028 (1.001-1.035) Urine Protein Trace (Negative) mg/dL Urine Glucose (UA) Negative (Negative) mg/dL Urine Ketones Trace H (Negative) mg/dL Ur Blood (Man) 1+ H (Negative) Urine Nitrate Negative (Negative) Urine Bilirubin Negative (Negative) Urine Urobilinogen 1.0 (<2.0) mg/dL Leukocyte Esterase Rfl Negative (Negative) LYNNE/UL Urine RBC 6-10 H (0-2) /hpf Urine WBC 0-5 (0-3) /hpf Ur Squamous Epith Cells None seen (Few) /hpf Urine Bacteria Rare /hpf Urine Casts 0-2 POC Urine HCG, Qual Negative (Negative) Influenza A (RT-PCR) Negative (Negative) Influenza B (RT-PCR) Negative (Negative) SARS-CoV-2 RNA (RT-PCR) Negative (Negative) Imaging Data Radiologist's impression: ITS Impressions Abdomen Ultrasound 10/28/24 20:58 IMPRESSION: 1. Positive sonographic Patel's on but with normal-appearing gallbladder with no dilation, wall thickening or cholelithiasis. If there is continued clinical concern for acute cholecystitis could consider HIDA scan for further evaluation. Discharge Plan Discharge Clinical Impression: Biliary colic, Nausea & vomiting, Right upper quadrant abdominal pain with positive Patel Sign, Marijuana use Patient Disposition: Home Condition: Stable Instructions: Antibiotic Form, Biliary Colic (ED), Acute Nausea and Vomiting (DC) Additional Instructions: As we discussed, your symptoms sound consistent with biliary colic although you did have some tenderness while performing physical exam. Continue taking your medication as prescribed and keep your upcoming follow up appointment with your business objects. They or your PCP may recommend proceeding with a HIDA (nucular medicine) scan. Trial dietary changes as described in the discharge instructions but if episodes persist/become more frequent, could consider seeing general surgeon in the outpatient setting to discuss risks/benefits of elective removal. Return to the Emergency Department immediately if the pain worsens, develops fever, persistent and uncontrolled vomiting, or for any new symptoms or concerns. Patient Language: Indonesian Prescriptions: No Action esomeprazole magnesium 40 mg capsule,delayed release(DR/EC) 40 mg PO DAILY sertraline [Zoloft] 100 mg tablet 100 mg PO DAILY dicyclomine 10 mg capsule 10 mg PO QID Qty: 20 0RF ondansetron HCl 4 mg tablet 4 mg PO Q4H Qty: 10 0RF Rx Instructions: 1st dose 1-2 hr before radiation Follow-up/Referrals: Zoe Baron APN-C [Advanced Practice Nurse, Gastroenterology] Yohannes,Alecia Abad APRN [Primary Care Provider, Unknown] Jean Claude Marin MD [Physician, Gastroenterology] Tamir Donohue MD [Physician, General Surgery] Referral Note: general surgeon Stand Alone Forms: Work/School Release IP Time of Disposition: 21:51
[2024-10-28] MEDS: MORPHINE SULFATE (*CRX) 4 MG/ML INJ IV PUSH (19:52)
[2024-10-28] MEDS: ONDANSETRON INJ 4 MG/2 ML VIAL IV PUSH (19:52)
[2024-10-28 20:32] LABS: Influenza A QL RT-PCR Negative (Negative); Influenza B QL RT-PCR Negative (Negative); SARS-CoV-2 RNA PCR Negative (Negative)
[2024-10-28] MEDS: PANTOPRAZOLE SODIUM IV 40 MG VIAL IV PUSH (21:22)
[2024-10-28] MEDS: FAMOTIDINE 20 MG/2 ML VIAL IV PUSH (21:22)
[2024-10-28] MEDS: DICYCLOMINE HCL 10 MG CAPSULE PO (21:22)
[2024-10-28 22:01] VITALS: BP 127/69; PULSE 66; RESP 18; O2SAT 98
== END 2024-10-28 22:01 | disposition home or self-care (01) ==
PROVIDERS: Emergency Provider Student in an Organized Health Care Education/Training Program; PCP Nurse Practitioner Adult Health
DX: K80.20 Calculus of gallbladder without cholecystitis without obstruction (principal); F12.90 Cannabis use, unspecified, uncomplicated; R11.2 Nausea with vomiting, unspecified; R10.11 Right upper quadrant pain; Z20.822 Contact with and (suspected) exposure to COVID-19
CPT/HCPCS: 36415; 76705; 80053; 81001; 81025; 83690; 85025; 87636; 96374; 96375; 99284; A9270; J2270; J2405; J2470

== ENCOUNTER 2024-10-30 05:13 | Emergency (ER) | payer OTHER, SELFPAY ==
--- NOTE | ~2024-10-30 | CT_ITS ---
EXAMINATION: CT abdomen pelvis w con DATE: 10/30/2024 08:52 INDICATION: Severe epigastric and right upper quadrant abdominal pain. TECHNIQUE: Computed tomography (CT) of the abdomen and pelvis was performed with 100 mL Omnipaque-350 intravenous contrast. Automated exposure control and iterative reconstruction technique were employed. The dose-length product was 439.71 mGy-cm. COMPARISON: 09/02/2024 FINDINGS: Lung bases are clear. Heart size is normal. No pericardial or pleural effusion. Mild focal hepatic steatosis at the ligamentum teres. Gallbladder, spleen, pancreas, bilateral adrenal glands and kidneys are normal. Bowels including the appendix are normal. Bladder, uterus and bilateral adnexa are normal. No free intraperitoneal gas or fluid. No pathologically enlarged abdominal or pelvic lymphadenopathy. Bilateral osteitis condensans ilii. IMPRESSION: 1. No acute intra-abdominal/pelvic process. Reviewed, dictated and finalized at location A.
--- NOTE | 2024-10-30 05:48 | ED_ITS ---
HPI - Abdominal Pain General Chief Complaint: Abdominal Pain <Cass Whatley MD - Last Filed: 10/30/24 07:09> Stated Complaint: epigastric/RUQ pain <Cass Whatley MD - Last Filed: 10/30/24 07:09> Time Seen by Provider: 10/30/24 05:20 <Cass Whatley MD - Last Filed: 10/30/24 07:09> History of Present Illness HPI narrative: For last 2 months patient has had increasing pain to her epigastric/right upper quadrant, worse in severity, was here 2 days ago for the same, had ultrasound which had positive Patel sign but otherwise unremarkable. Has consultation scheduled for gallbladder removal, has had follow-up with gastroenterology and no endoscopy yet. No nausea currently <Cass Whatley MD - Last Filed: 10/30/24 07:09> Related Data Home Medications: Home Medications ?Medication ?Instructions ?Recorded ?Confirmed ?Last Taken ?Type esomeprazole magnesium 40 mg 40 mg PO DAILY 09/01/24 0 09/24/24 Unknown History capsule,delayed release sertraline 100 mg tablet (Zoloft) 100 mg PO DAILY 08/1209/24/24 Unknown History <Cass Whatley MD - Last Filed: 10/30/24 07:09> Allergies/Adverse Reactions: Allergies Allergy/AdvReac Type Severity Reaction Status Date / Time No Known Allergies Allergy Verified 10/28/24 16:53 <Cass Whatley MD - Last Filed: 10/30/24 07:09> Review of Systems 2 Review of Systems: All systems reviewed & are unremarkable except as noted in HPI and below <Cass Whatley MD - Last Filed: 10/30/24 07:09> [facility] Past Medical History Medical History: Medical History (Updated 10/30/24 @ 07:00 by Cass Whatley MD) GERD (gastroesophageal reflux disease) Nausea and vomiting Eczema <Cass Whatley MD - Last Filed: 10/30/24 07:09> Surgical History Surgical History: Surgical History No significant past surgical history <Cass Whatley MD - Last Filed: 10/30/24 07:09> Family History Family History: Family History Father Alive and well Mother Alive and well <Cass Whatley MD - Last Filed: 10/30/24 07:09> Social History Social History: Social History (Updated 10/29/24 @ 22:08 by Meggan Daly MD) Smoking status: Never smoker Tobacco type: cigarettes Second hand tobacco smoke exposure: Yes (parents) Alcohol intake: current Substance use: never Substance use type: marijuana Other substance usage details: near daily for pain Living arrangements: with family Occupation/Education: student Gender identity (if verbalized by the patient): Female <Cass Whatley MD - Last Filed: 10/30/24 07:09> Exam 2 Narrative: EXAMINATION OF ORGAN SYSTEMS/BODY AREAS: Constitutional: Vital signs per nursing GENERAL: Appears quite uncomfortable and miserable HEAD: Normal with no signs of head trauma. EYES: EOMI, conjunctiva normal ENT: Hearing grossly intact LUNGS: Nonlabored breathing. HEART: [Regular rate and rhythm] ABD: [Soft], tender to palpation epigastric and right upper quadrant EXT: Normal range of motion SKIN: [No rashes or lesions.] NEURO: [Alert and oriented x 3. No gross focal sensory or strength deficits.] PSYCH: Normal affect <Cass Whatley MD - Last Filed: 10/30/24 07:09> Course Vital Signs Vital signs: Vital Signs Temperature 98.0 F 10/30/24 06:31 Pulse Rate 50 L 10/30/24 06:31 Respiratory Rate 16 10/30/24 06:31 Blood Pressure 120/66 10/30/24 06:31 Pulse Oximetry 98 10/30/24 06:31 Oxygen Delivery Room Air 10/30/24 06:31 Temperature 98.0 F 10/30/24 06:31 Pulse Rate 66 10/30/24 09:35 Respiratory Rate 16 10/30/24 09:35 Blood Pressure 126/68 10/30/24 09:35 Pulse Oximetry 98 10/30/24 09:35 Oxygen Delivery Room Air 10/30/24 06:31 <Cass Whatley MD - Last Filed: 10/30/24 07:09> Vital Signs Temperature 98.0 F 10/30/24 06:31 Pulse Rate 50 L 10/30/24 06:31 Respiratory Rate 16 10/30/24 06:31 Blood Pressure 120/66 10/30/24 06:31 Pulse Oximetry 98 10/30/24 06:31 Oxygen Delivery Room Air 10/30/24 06:31 Temperature 98.0 F 10/30/24 06:31 Pulse Rate 66 10/30/24 09:35 Respiratory Rate 16 10/30/24 09:35 Blood Pressure 126/68 10/30/24 09:35 Pulse Oximetry 98 10/30/24 09:35 Oxygen Delivery Room Air 10/30/24 06:31 <Lonnie Coely MD - Last Filed: 10/30/24 17:54> MDM - Abdominal Pain MDM Narrative Medical decision making narrative: Electronic medical record was reviewed. Patient presented to the ED with complaint of [abdominal pain without vomiting]. Vitals [were within acceptable limits]. Physical exam revealed [tenderness to palpation in epigastric and right upper quadrant]. Based on the patient's history and physical exam, my differential includes but is not limited to [gastritis, gastroenteritis, cholecystitis, pancreatitis, chronic abdominal pain]. [IV access was established by nursing staff. Patient was given morphine, famotidine, Protonix]. With shared decision making with patient, CTA will be obtained since her last 1 was in August and her symptoms are now much worse. Discussed with patient that she already has follow-up with specialists including GI and General surgery and that if we did not find anything new emergent here, she needs follow-up with them and continue the medications she is prescribed. Patient agreeable to the plan. Signed out to oncoming physician <Cass Whatley MD - Last Filed: 10/30/24 07:09> Electronic medical record was reviewed. Patient presented to the ED with complaint of [abdominal pain without vomiting]. Vitals [were within acceptable limits]. Physical exam revealed [tenderness to palpation in epigastric and right upper quadrant]. Based on the patient's history and physical exam, my differential includes but is not limited to [gastritis, gastroenteritis, cholecystitis, pancreatitis, chronic abdominal pain]. [IV access was established by nursing staff. Patient was given morphine, famotidine, Protonix]. With shared decision making with patient, CTA will be obtained since her last 1 was in August and her symptoms are now much worse. Discussed with patient that she already has follow-up with specialists including GI and General surgery and that if we did not find anything new emergent here, she needs follow-up with them and continue the medications she is prescribed. Patient agreeable to the plan. Signed out to oncoming physician ---- Patient care was signed out to me by the overnight physician with CT pending. Patient does have outpatient follow-up scheduled. Patient is currently afebrile but does have a leukocytosis of 11.3 and hemoglobin of 14.1. Patient has no acute abnormalities her CMP. Urine test was negative. CT scan abdomen pelvis shows no acute pathology. Patient was updated the results of workup patient was encouraged to have close follow-up with her physicians as scheduled for outpatient. All questions concerns were addressed. Patient was well-appearing at time of discharge. <Lonnie Coley MD - Last Filed: 10/30/24 17:54> Differential Diagnosis Differential diagnosis: Likely abdominal pain, acute appendicitis, calculus of kidney, constipation, diverticulitis, endometriosis, gastroenteritis, pancreatitis and small bowel obstruction <Lonnie Coley MD - Last Filed: 10/30/24 17:54> Lab Data Attestation: I reviewed the patient's lab results. <Lonnie Coley MD - Last Filed: 10/30/24 17:54> Result diagrams: 10/30/24 06:24 10/30/24 06:24 <Cass Whatley MD - Last Filed: 10/30/24 07:09> Labs: Lab Results 10/30/24 10/30/24 Range/Units 06:24 08:43 WBC 11.3 H (4.5-10.0) K/mm3 RBC 4.64 (4.2-5.4) M/mm3 Hgb 14.1 (12.0-15.0) g/dL Hct 41.8 (37.0-47.0) % MCV 90.1 (80-100) fl MCH 30.4 (26-34) pg MCHC 33.7 (32-36) g/dl RDW 13.0 (11.5-14.5) % Plt Count 337 (150-375) k/mm3 MPV 10.5 H (7.4-10.4) fl Immature Gran % (Auto) 0.4 (0-0.5) % Neut % (Auto) 67.3 (45.5-73.1) % Lymph % (Auto) 24.7 (18.3-44.2) % [place] % (Auto) 5.4 (2.6-8.5) % Eos % (Auto) 1.8 (0-4.4) % Baso % (Auto) 0.4 (0.2-1.2) % Lymph # (Auto) 2.79 (0.9-3.2) K/mm3 [place] # (Auto) 0.6 (0.1-0.6) K/mm3 Eos # (Auto) 0.2 (0-0.3) K/mm3 Baso # (Auto) 0.1 (0.0-0.1) K/mm3 Abs Immat Gran (auto) 0.04 H (0.00-0.031) K/mm3 Absolute Neuts (auto) 7.6 H (1.3-6.7) K/mm3 Absolute Nucleated RBC 0.000 (0.0-0.012) K/mm3 Nucleated RBC % 0.0 (0.0-0.2) % Sodium 137 (137-145) mmol/L Potassium 4.1 (3.4-5.0) mmol/L Chloride 103 (98-107) mmol/L Carbon Dioxide 29 (22-30) mmol/L Anion Gap 5 (4-12) mmol/L BUN 15 (7-17) mg/dL Creatinine 0.80 (0.7-1.0) mg/dL Estim Creat Clear Calc 102 ml/min Estimated GFR > 60 (59 - ) Glucose 110 (65-110) mg/dL Calcium 9.2 (8.4-10.2) mg/dL Total Bilirubin 0.5 (0.2-1.3) mg/dL AST 26 (14-36) U/L ALT 17 (6-35) U/L Alkaline Phosphatase 99 (38-126) U/L Total Protein 8.0 (6.3-8.2) g/dL Albumin 4.4 (3.5-5.1) g/dL Lipase 84 (23-300) U/L POC Urine HCG, Qual Negative (Negative) <Cass Whatley MD - Last Filed: 10/30/24 07:09> Lab Results 10/30/24 10/30/24 Range/Units 06:24 08:43 WBC 11.3 H (4.5-10.0) K/mm3 RBC 4.64 (4.2-5.4) M/mm3 Hgb 14.1 (12.0-15.0) g/dL Hct 41.8 (37.0-47.0) % MCV 90.1 (80-100) fl MCH 30.4 (26-34) pg MCHC 33.7 (32-36) g/dl RDW 13.0 (11.5-14.5) % Plt Count 337 (150-375) k/mm3 MPV 10.5 H (7.4-10.4) fl Immature Gran % (Auto) 0.4 (0-0.5) % Neut % (Auto) 67.3 (45.5-73.1) % Lymph % (Auto) 24.7 (18.3-44.2) % [place] % (Auto) 5.4 (2.6-8.5) % Eos % (Auto) 1.8 (0-4.4) % Baso % (Auto) 0.4 (0.2-1.2) % Lymph # (Auto) 2.79 (0.9-3.2) K/mm3 [place] # (Auto) 0.6 (0.1-0.6) K/mm3 Eos # (Auto) 0.2 (0-0.3) K/mm3 Baso # (Auto) 0.1 (0.0-0.1) K/mm3 Abs Immat Gran (auto) 0.04 H (0.00-0.031) K/mm3 Absolute Neuts (auto) 7.6 H (1.3-6.7) K/mm3 Absolute Nucleated RBC 0.000 (0.0-0.012) K/mm3 Nucleated RBC % 0.0 (0.0-0.2) % Sodium 137 (137-145) mmol/L Potassium 4.1 (3.4-5.0) mmol/L Chloride 103 (98-107) mmol/L Carbon Dioxide 29 (22-30) mmol/L Anion Gap 5 (4-12) mmol/L BUN 15 (7-17) mg/dL Creatinine 0.80 (0.7-1.0) mg/dL Estim Creat Clear Calc 102 ml/min Estimated GFR > 60 (59 - ) Glucose 110 (65-110) mg/dL Calcium 9.2 (8.4-10.2) mg/dL Total Bilirubin 0.5 (0.2-1.3) mg/dL AST 26 (14-36) U/L ALT 17 (6-35) U/L Alkaline Phosphatase 99 (38-126) U/L Total Protein 8.0 (6.3-8.2) g/dL Albumin 4.4 (3.5-5.1) g/dL Lipase 84 (23-300) U/L POC Urine HCG, Qual Negative (Negative) <Lonnie Coley MD - Last Filed: 10/30/24 17:54> Imaging Data Radiologist's impression: ITS Impressions Abdomen/Pelvis CT 10/30/24 08:53 IMPRESSION: 1. No acute intra-abdominal/pelvic process. <Cass Whatley MD - Last Filed: 10/30/24 07:09> ITS Impressions Abdomen/Pelvis CT 10/30/24 08:53 IMPRESSION: 1. No acute intra-abdominal/pelvic process. <Lonnie Coley MD - Last Filed: 10/30/24 17:54> Discharge Plan Discharge Clinical Impression: Epigastric abdominal pain <Cass Whatley MD - Last Filed: 10/30/24 07:09> Patient Disposition: Home <Cass Whatley MD - Last Filed: 10/30/24 07:09> Condition: Stable <Cass Whatley MD - Last Filed: 10/30/24 07:09> Instructions: Abdominal Pain (ED) <Cass Whatley MD - Last Filed: 10/30/24 07:09> Additional Instructions: Have close outpatient follow-up with your physicians as scheduled. If you have any worsening symptoms then please call or return to the emergency department. <Cass Whatley MD - Last Filed: 10/30/24 07:09> Patient Language: [place] Zealander <Cass Whatley MD - Last Filed: 10/30/24 07:09> Prescriptions: No Action esomeprazole magnesium 40 mg capsule,delayed release(DR/EC) 40 mg PO DAILY sertraline [Zoloft] 100 mg tablet 100 mg PO DAILY dicyclomine 10 mg capsule 10 mg PO QID Qty: 20 0RF ondansetron HCl 4 mg tablet 4 mg PO Q4H Qty: 10 0RF Rx Instructions: 1st dose 1-2 hr before radiation <Cass Whatley MD - Last Filed: 10/30/24 07:09> Follow-up/Referrals: Yohannes,Alecia Abad APRN [Primary Care Provider, Unknown] <Cass Whatley MD - Last Filed: 10/30/24 07:09> Stand Alone Forms: Work/School Release IP <Cass Whatley MD - Last Filed: 10/30/24 07:09>
[2024-10-30] MEDS: MORPHINE SULFATE (*CRX) 4 MG/ML INJ IV PUSH (06:22)
[2024-10-30 06:29] LABS: Hematocrit 41.8 % (37.0-47.0); Hemoglobin 14.1 g/dL (12.0-15.0); Immature Granulocyte Percent A 0.4 % (0-0.5); Lymphocytes Absolute Auto 2.79 K/mm3 (0.9-3.2); Mean Corpuscular HGB Conc 33.7 g/dl (32-36); Mean Corpuscular Hemoglobin 30.4 pg (26-34); Mean Corpuscular Volume 90.1 fl (80-100); Nucleated Red Blood Cells Absolute Auto 0.000 K/mm3 (0.0-0.012); Nucleated Red Blood Cells Perc 0.0 % (0.0-0.2); Platelet Count Result 337 k/mm3 (150-375); Red Blood Count 4.64 M/mm3 (4.2-5.4); White Blood Count 11.3 K/mm3 (4.5-10.0)
[2024-10-30 06:31] VITALS: BP 120/66; PULSE 50; RESP 16; TEMP 36.7; O2SAT 98
[2024-10-30 06:58] LABS: Alanine Aminotransferase 17 U/L (6-35); Albumin Level 4.4 g/dL (3.5-5.1); Alkaline Phosphatase 99 U/L (38-126); Anion Gap 5 mmol/L (4-12); Aspartate Amino Transferase 26 U/L (14-36); Bilirubin,Total 0.5 mg/dL (0.2-1.3); Blood Urea Nitrogen 15 mg/dL (7-17); Calcium 9.2 mg/dL (8.4-10.2); Carbon Dioxide 29 mmol/L (22-30); Chloride 103 mmol/L (98-107); Estimated CRCL calculation 102 ml/min; Estimated Glomerular Filt Rate > 60; Glucose 110 mg/dL (65-110); Lipase 84 U/L (23-300); Potassium 4.1 mmol/L (3.4-5.0); Sodium 137 mmol/L (137-145); Total Protein 8.0 g/dL (6.3-8.2)
[2024-10-30 07:10] VITALS: BP 118/74; PULSE 62; RESP 18; O2SAT 98
[2024-10-30] MEDS: PANTOPRAZOLE SODIUM IV 40 MG VIAL IV PUSH (07:33)
[2024-10-30] MEDS: FAMOTIDINE 20 MG/2 ML VIAL IV PUSH (07:34)
[2024-10-30 08:43] VITALS: BP 120/69; PULSE 55; RESP 16; O2SAT 99
[2024-10-30 08:45] LABS: BEDSIDEPREGUCG Negative (Negative)
[2024-10-30] MEDS: BELLADONNA ALK/PHENOB ELIX 10 ML, MAG HYDROX/ALUMINUM HYD/SIMETH 30 ML, LIDOCAINE 2% VI... PO (09:26)
[2024-10-30 09:35] VITALS: BP 126/68; PULSE 66; RESP 16; O2SAT 98
== END 2024-10-30 09:38 | disposition home or self-care (01) ==
PROVIDERS: Emergency Provider Emergency Medicine; PCP Nurse Practitioner Adult Health
DX: R10.13 Epigastric pain (principal); K21.9 Gastro-esophageal reflux disease without esophagitis; Z77.22 Contact with and (suspected) exposure to environmental tobacco smoke (acute) (chronic)
CPT/HCPCS: 36415; 74177; 80053; 81025; 83690; 85025; 96374; 96375; 99284; A9270; J2270; J2470; Q9967

== ENCOUNTER 2024-11-04 15:22 | Observation (INO) | payer OTHER, SELFPAY ==
--- NOTE | ~2024-11-04 | NM_ITS ---
EXAMINATION: NM_HEPATWP_NM DATE: 11/05/2024 09:11 INDICATION: Right upper quadrant abdominal pain. COMPARISON: CT abdomen and pelvis 10/30/2024 TECHNIQUE: 5.03 mCi Tc-99m mebrofenin (Choletec) was administered intravenously. Scintigraphic images of the abdomen were obtained for one hour. Then, 1.65 mcg sincalide (Kinevac) IV was administered, and imaging was continued for 30 minutes. FINDINGS: There is normal clearance of radiotracer from the blood pool. There is homogeneous tracer uptake by the liver. Activity progresses to the bowel and gallbladder. Gallbladder ejection fraction (GBEF) was 56%. Note that most patients with gallbladder dysfunction have GBEF < 35%, which overlaps with the broad normal range of 10-90%. IMPRESSION: 1. Normal hepatobiliary scintigraphy. Reviewed, dictated and finalized at location E.
--- NOTE | 2024-11-04 14:50 | ADMGEN ---
This patient, Malinda Torres, was admitted to [address] [place] [address] Room 325-02. Patient/family oriented to hospital policies and general routines including ID bracelet, bed and alarms, visiting hours, pain management, procedures, bathroom and other care routines, personal items, smoking policy, room service/diet, and visiting hours. Information on how to activate the Rapid Response Team has been discussed. Patient/Family are encouraged to report perceived risks to care and to ask questions if they do not understand what they are told or what they should do.
[2024-11-04 14:52] VITALS: BMI 29.5
--- NOTE | 2024-11-04 15:28 | PM.IMHP ---
H&P: HPI History of Present Illness Date/Time: 11/04/24 15:28 Chief Complaint: Right upper quadrant abdominal pain Narrative: This is a 24-year-old female who is being directly admitted from our office for intractable right upper quadrant abdominal pain. She went to [facility] ED on 10/28/2024 and 10/30/2024 for abdominal pain. Abdominal ultrasound showed a positive sonographic Patel sign, but a normal-appearing gallbladder with no cholelithiasis. CT scan also performed and negative. She had similar episodes of pain in the summer as well and was evaluated in the ED. she was evaluated by GI in September with scheduled follow-up and recommendations to stop using marijuana and continue omeprazole. No plans for EGD or colonoscopy. She reports decreased appetite associated with nausea and vomiting, as well as constipation. She has been taking Prilosec without relief in her symptoms. She was referred to our office as an outpatient and seen today. She continues to have intractable right upper quadrant abdominal pain and is being directly admitted for IV pain medication and IV fluids for poor oral intake. Review of Systems Review of Systems: All systems reviewed & are unremarkable except as noted in HPI and below PMFSH Past Medical History Medical History GERD (gastroesophageal reflux disease) Nausea and vomiting Eczema Surgical History Surgical History No significant past surgical history Family History Family History Father No problems noted. Mother Leukemia Gallbladder disease Other Diabetes mellitus Other Diabetes mellitus Other Ovarian cyst Social History Social History Smoking status: Never smoker Tobacco type: cigarettes Second hand tobacco smoke exposure: Yes (parents) Alcohol intake: current Drinks per week: 1 Substance use: current Substance use type: marijuana Other substance usage details: near daily for pain Lack of Transportation: No Lack of Food: Never True Current Housing: I Have Housing Concerned About Future Housing: No Difficulty Paying Gas/Electric Bills: No Difficulty Paying for Meds: No Currently Unemployed: No Education: High School Diploma/GED Difficulty w/ Childcare or Family Care: No Living arrangements: with family Occupation/Education: student Gender identity (if verbalized by the patient): Female Spiritual care concerns: No Meds Home Medications and Allergies Home Medications ?Medication ?Instructions ?Recorded ?Confirmed ?Type esomeprazole magnesium 40 mg 40 mg PO DAILY 09/01/24 11/04/24 History capsule,delayed release sertraline 100 mg tablet (Zoloft) 100 mg PO DAILY 09/01/24 11/04/24 History dicyclomine 10 mg capsule 10 mg PO QID PRN abdominal pain 11/04/24 11/04/24 History ondansetron HCl 4 mg tablet 4 mg PO Q4H 11/04/24 11/04/24 History Allergies Allergy/AdvReac Type Severity Reaction Status Date / Time No Known Allergies Allergy Verified 11/04/24 14:54 Exam Const: General: no acute distress and uncomfortable Nutritional Appearance: average body habitus Orientation/consciousness: patient oriented x3 HENMT: Head: normocephalic and atraumatic Ears: hearing grossly normal bilaterally Mouth: Yes moist mucous membranes Eyes: General: appearance normal, both eyes and all related structures Pupils: Equal, round and reactive pupils present Neck: Neck: normal visual inspection and full ROM Resp: Effort & Inspection: no respiratory distress Auscultation: clear to auscultation bilaterally Cardio: Rate: regular rate Rhythm: regular rhythm Peripheral pulses: Peripheral pulses 2+ throughout GI: Inspection: non-distended GI Palp: Yes Soft to palpation, Yes Tenderness to palpation present (GI) (RUQ), No Guarding due to palpation present (GI), No Hernia present and No Rebound tenderness present Auscultation: normal bowel sounds Skin: General skin exam: normal color Neuro: General: moves all extremities and no focal motor deficits Speech: normal speech Motor exam (neuro): 5/5 motor strength present throughout Extrem: General: normal to inspection and no edema Psych: Mental Status: mental status grossly normal Attitude: cooperative Insight: Good insight present (Psych) Judgement: Good judgement present (Psych) Assessment and Plan Assessment and plan (1) Intractable right upper quadrant abdominal pain: Code(s): R10.11 - Right upper quadrant pain Status: Acute Assessment and Plan: The patient presents with intractable RUQ pain and was evaluated in our office by Dr. Donohue. She also has been dealing with nausea and poor oral intake. She is being admitted for IV pain medication, IV fluids, and further workup of her pain. Her previous workup in the ED about a week ago was negative. CT and ultrasound showed no abnormalities of the gallbladder or any other intraabdominal process to explain her pain. Will order a HIDA scan to further evaluate the gallbladder. Will make her NPO after midnight for this test. She can have clear liquids for now as tolerated and we will order labs. She will have pain medication available as needed, as well as Zofran for her nausea. (2) Nausea and vomiting: Code(s): R11.2 - Nausea with vomiting, unspecified Status: Acute Plan I have discussed the patient's case and plan of care with Dr. Donoheu.
[2024-11-04] MEDS: SODIUM CHLORIDE 0.9% IV 1,000 ML 125 ML IV CONT ×2 (15:42→20:05)
[2024-11-04] MEDS: ONDANSETRON INJ 4 MG/2 ML VIAL IV PUSH (15:43)
[2024-11-04] MEDS: MORPHINE SULFATE (*CRX) 4 MG/ML INJ 2 MG IV PUSH (15:43)
[2024-11-04 16:26] LABS: Hematocrit 41.2 % (37.0-47.0); Hemoglobin 13.9 g/dL (12.0-15.0); Immature Granulocyte Percent A 0.2 % (0-0.5); Lymphocytes Absolute Auto 1.65 K/mm3 (0.9-3.2); Mean Corpuscular HGB Conc 33.7 g/dl (32-36); Mean Corpuscular Hemoglobin 30.0 pg (26-34); Mean Corpuscular Volume 88.8 fl (80-100); Nucleated Red Blood Cells Absolute Auto 0.000 K/mm3 (0.0-0.012); Nucleated Red Blood Cells Perc 0.0 % (0.0-0.2); Platelet Count Result 264 k/mm3 (150-375); Red Blood Count 4.64 M/mm3 (4.2-5.4); White Blood Count 8.6 K/mm3 (4.5-10.0)
[2024-11-04 16:36] LABS: INR 1.0; Prothrombin Time 13.2 Seconds (11.1-14.7)
[2024-11-04 16:37] LABS: Partial Thromboplastin Time 27.8 Seconds (22.3-36.8)
[2024-11-04 16:47] LABS: Alanine Aminotransferase 14 U/L (6-35); Albumin Level 4.3 g/dL (3.5-5.1); Alkaline Phosphatase 111 U/L (38-126); Anion Gap 7 mmol/L (4-12); Aspartate Amino Transferase 26 U/L (14-36); Bilirubin,Total 0.4 mg/dL (0.2-1.3); Blood Urea Nitrogen 7 mg/dL (7-17); Calcium 9.0 mg/dL (8.4-10.2); Carbon Dioxide 24 mmol/L (22-30); Chloride 105 mmol/L (98-107); Estimated CRCL calculation 122 ml/min; Estimated Glomerular Filt Rate > 60; Glucose 84 mg/dL (65-110); Lipase 51 U/L (23-300); Potassium 4.2 mmol/L (3.4-5.0); Sodium 136 mmol/L (137-145); Total Protein 7.8 g/dL (6.3-8.2)
[2024-11-04] MEDS: FAMOTIDINE 20 MG/2 ML VIAL IV PUSH (20:04)
[2024-11-04] MEDS: MORPHINE SULFATE (*CRX) 4 MG/ML INJ IV PUSH ×2 (20:04→23:57)
[2024-11-04 21:25] VITALS: BP 119/87; PULSE 78; RESP 14; TEMP 36.6; O2SAT 99
[2024-11-04] MEDS: ACETAMINOPHEN 500 MG TABLET 1000 MG PO (22:25)
[2024-11-05] VITALS (10 sets, daily range): BP systolic 108–142; BP diastolic 76–85; PULSE 71–111; RESP 12–20; TEMP 36.1–37.7; O2SAT 96–100
[2024-11-05] MEDS: SERTRALINE HCL 50 MG TABLET 100 MG PO (09:47)
[2024-11-05] MEDS: ONDANSETRON INJ 4 MG/2 ML VIAL IV PUSH ×2 (09:48→17:38)
[2024-11-05] MEDS: MORPHINE SULFATE (*CRX) 4 MG/ML INJ IV PUSH (09:48)
[2024-11-05] MEDS: SODIUM CHLORIDE 0.9% IV 1,000 ML 125 ML IV CONT ×2 (09:48→21:51)
[2024-11-05] MEDS: FAMOTIDINE 20 MG/2 ML VIAL IV PUSH ×2 (09:49→21:48)
--- NOTE | 2024-11-05 10:16 | PM.PNGS ---
Progress Note: A&P Assessment and Plan (1) Intractable right upper quadrant abdominal pain: Code(s): R10.11 - Right upper quadrant pain Status: Acute Assessment and Plan: Patient continues to have intractable RUQ pain and nausea. Symptoms are concerning for gallbladder dysfunction. HIDA scan is normal. We have discussed both nonoperative and surgical treatment options. We discussed the option of proceeding with a laparoscopic cholecystectomy as her symptoms could be related to her gallbladder. We also discussed that given her negative workup and a normal HIDA scan, there is at least a 15% chance that she could have surgery and continue to have her symtpoms without improvement or resolution. We also discussed the description of the procedure, risks, benefits, alternatives, and expected recovery. We discussed the risks of bile leak and bile duct injury, liver/bowel injury, bleeding, and infection. Also discussed the possibility of having to convert to an open procedure if necessary. She understands and wishes to proceed with surgery. We will add her onto the surgery schedule accordingly. Continue IV fluids, analgesics, and antiemetics for now. (2) Nausea and vomiting: Code(s): R11.2 - Nausea with vomiting, unspecified Status: Acute Plan I have discussed the patient's case and plan of care with Dr. Donohue. Subjective Subjective Date/Time Seen: 11/05/24 10:16 Patient reports: still having pain and nausea Interval history: No acute changes overnight. No new complaints. She had the HIDA scan today that was normal, but she does report having increased pain when given the IV medication during the test. Exam Const: General: comfortable and no acute distress GI: Inspection: non-distended GI Palp: Yes Soft to palpation, Yes Tenderness to palpation present (GI) (RUQ), No Guarding due to palpation present (GI) and No Rebound tenderness present Auscultation: normal bowel sounds Objective Data Vital Signs Vital Signs: Vital Signs - 24 hr 11/04/24 15:00 11/04/24 21:25 11/05/24 06:00 Temperature 97.8 F 97.0 F L Pulse Rate 78 73 Respiratory Rate 14 14 Blood Pressure 119/87 108/80 Pulse Oximetry 99 100 Oxygen Delivery Room Air Intake/Output Intake/Output: Intake & Output 11/02/24 11/03/24 11/04/24 11/05/24 23:59 23:59 23:59 23:59 Intake Total 787.9 1000 Balance 787.9 1000 Meds/Results Medications: Active Medications Generic Name Dose Route Start Last Admin Trade Name Freq PRN Reason Stop Dose Admin Acetaminophen 1,000 mg 11/04/24 15:22 11/04/24 22:25 Acetaminophen 500 Mg Tablet PO 1,000 mg Q6H PRN Administration Mild Pain (1-3) or Fever Famotidine 20 mg 11/04/24 21:00 11/05/24 09:49 Famotidine 20 Mg/2 Ml Vial IV PUSH 20 mg Q12HR ALEXA Administration Sodium Chloride 1,000 mls @ 125 mls/hr 11/04/24 15:25 11/05/24 09:48 Normal Saline Iv IV CONT 125 mls/hr .Q8H ALEXA Administration Morphine Sulfate 2 mg 11/04/24 15:28 11/04/24 15:43 Morphine Sulfate (*Crx) 4 Mg/Ml Inj IV PUSH 2 mg Q4H PRN Administration Pain Rated 4-6 Morphine Sulfate 4 mg 11/04/24 15:35 11/05/24 09:48 Morphine Sulfate (*Crx) 4 Mg/Ml Inj IV PUSH 4 mg Q4H PRN Administration Pain Rated 7-10 Ondansetron HCl 4 mg 11/04/24 15:22 11/05/24 09:48 Ondansetron Inj 4 Mg/2 Ml Vial IV PUSH 4 mg Q6H PRN Administration Nausea And Vomiting Sertraline HCl 100 mg 11/05/24 09:00 11/05/24 09:47 Sertraline Hcl 50 Mg Tablet PO 100 mg DAILY ALEXA Administration Radiology Results: ITS Impressions Hepatobiliary Scan Nuclear Medicine 11/05/24 09:20 IMPRESSION: 1. Normal hepatobiliary scintigraphy. Labs Labs: Laboratory Results - last 24 hr 11/04/24 11/05/24 16:18 06:29 WBC 8.6 RBC 4.64 Hgb 13.9 Hct 41.2 MCV 88.8 MCH 30.0 MCHC 33.7 RDW 12.6 Plt Count 264 MPV 10.5 H Immature Gran % (Auto) 0.2 Neut % (Auto) 73.9 H Lymph % (Auto) 19.2 [place] % (Auto) 4.8 Eos % (Auto) 1.6 Baso % (Auto) 0.3 Lymph # (Auto) 1.65 [place] # (Auto) 0.4 Eos # (Auto) 0.1 Baso # (Auto) 0.0 Abs Immat Gran (auto) 0.02 Absolute Neuts (auto) 6.4 Absolute Nucleated RBC 0.000 Nucleated RBC % 0.0 PT 13.2 INR 1.0 APTT 27.8 Sodium 136 L Potassium 4.2 Chloride 105 Carbon Dioxide 24 Anion Gap 7 BUN 7 D Creatinine 0.66 L Estim Creat Clear Calc 122 Estimated GFR > 60 Glucose 84 Calcium 9.0 Total Bilirubin 0.4 AST 26 ALT 14 Alkaline Phosphatase 111 Total Protein 7.8 Albumin 4.3 Lipase 51 Blood Type B Positive Antibody Screen Negative
[2024-11-05] MEDS: LACTATED RINGERS 1,000 ML 30 ML IV CONT ×2 (16:00→18:00)
--- NOTE | 2024-11-05 16:17 | WPDHPUPDATE1 ---
History and Physical Update Update Date/Time: 11/05/24 16:17 History and Physical has been reviewed, including an updated exam of the patient. There are NO changes in the patient's condition. Risks, benefits, and alternatives have been discussed and questions answered. Patient agrees to proceed with procedure.
--- NOTE | 2024-11-05 16:27 | P.PNAN_ITS ---
Anes - Initial Pre Proc Eval Procedure: Operation Date: 11/05/24 16:30 Proposed Procedures p Laparoscopic Cholecystectomy, Possible Open - Tamir Donohue MD Date/Time: 11/05/24 16:27 Surgeon: Tamir Donohue MD Pre Op Diagnosis: Intractable RUQ Pain Patient Data Age: 24 Gender: F Height: 1.68 m Weight: 82.9 kg Last Vital Signs Temp 37.7 C H 11/05/24 15:15 Pulse 109 H 11/05/24 15:15 Resp 20 11/05/24 15:15 BP 129/85 11/05/24 15:15 Pulse Ox 99 11/05/24 15:15 O2 Del Method Room Air 11/05/24 15:15 Allergies Allergy/AdvReac Type Severity Reaction Status Date / Time No Known Allergies Allergy Verified 11/05/24 15:26 Home Medications ?Medication ?Instructions ?Recorded ?Confirmed ?Type esomeprazole magnesium 40 mg 40 mg PO DAILY 09/01/24 0 11/04/24 History capsule,delayed release sertraline 100 mg tablet (Zoloft) 100 mg PO DAILY 08/1211/04/24 History dicyclomine 10 mg capsule 10 mg PO QID PRN abdominal p ain 11/04/24 11/04/24 History ondansetron HCl 4 mg tablet 4 mg PO Q4H 11/04/2411/04 History Laboratory Tests 11/04/24 11/05/24 16:18 06:29 PT 13.2 Seconds (11.1-14.7) INR 1.0 APTT 27.8 Seconds (22.3-36.8) Sodium 136 L mmol/L (137-145) Potassium 4.2 mmol/L (3.4-5.0) Chloride 105 mmol/L (98-107) Carbon Dioxide 24 mmol/L (22-30) Anion Gap 7 mmol/L (4-12) BUN 7 D mg/dL (7-17) Creatinine 0.66 L mg/dL (0.7-1.0) Estim Creat Clear Calc 122 ml/min Estimated GFR > 60 (59 - ) Glucose 84 mg/dL (65-110) Calcium 9.0 mg/dL (8.4-10.2) Total Bilirubin 0.4 mg/dL (0.2-1.3) AST 26 U/L (14-36) ALT 14 U/L (6-35) Alkaline Phosphatase 111 U/L (38-126) Total Protein 7.8 g/dL (6.3-8.2) Albumin 4.3 g/dL (3.5-5.1) Lipase 51 U/L (23-300) Blood Type B Positive Antibody Screen Negative Patient hx anesthesia problems: none Family hx anesthesia problems: none Results Review: All pre-operative results and documents have been reviewed as part of the pre- operative evaluation. [facility] Past Medical History Medical History GERD (gastroesophageal reflux disease) Nausea and vomiting Eczema Surgical History Surgical History No significant past surgical history Family History Family History Father No problems noted. Mother Leukemia Gallbladder disease Other Diabetes mellitus Other Diabetes mellitus Other Ovarian cyst Social History Social History Smoking status: Never smoker Tobacco type: cigarettes Second hand tobacco smoke exposure: Yes (parents) Alcohol intake: current Drinks per week: 1 Substance use: current Substance use type: marijuana Other substance usage details: near daily for pain Lack of Transportation: No Lack of Food: Never True Current Housing: I Have Housing Concerned About Future Housing: No Difficulty Paying Gas/Electric Bills: No Difficulty Paying for Meds: No Currently Unemployed: No Education: High School Diploma/GED Difficulty w/ Childcare or Family Care: No Living arrangements: with family Occupation/Education: student Gender identity (if verbalized by the patient): Female Spiritual care concerns: No Anes - Eval Final PreProcedure Day of Procedure 11/05/24 16:27 Patient weight: overweight Heart: regular rate and rhythm Lungs: clear to auscultation Airway: Mallampati scale class II Neurological: alert and oriented Last oral intake: >/= 8 hours ASA classification: II Emergent: no Anesthetic plan: proceed Anesthesia type and monitoring: general ETT and standard monitoring Results Review: All pre-operative results and documents have been reviewed as part of the pre- operative evaluation. Informed Consent: The patient's anesthetic plan and its attendant risks and benefits were discussed with the patient/family/POA. Questions were solicited and answers provided to the satisfaction of the patient/family/POA.
[2024-11-05] MEDS: ceFAZolin 2 GM in SODIUM CHLORIDE 0.9% IV 50 ML 100 ML IVPB (16:37)
[2024-11-05] MEDS: LIDO 1%/EPINEPHRINE 1:100,000 20 ML VIAL 30 ML INFILTRATE (16:59)
[2024-11-05] MEDS: BUPivacaine HCL 0.5% 10 ML AMP 30 ML INFILTRATE (16:59)
--- NOTE | 2024-11-05 17:15 | S_PTH ---
PATIENT: Malinda Torres LOC: [id number] U#:[id number] AGE/SX: 24/F ROOM: 325 RE11/04/[address]: Tamir Donohue MD : 2000 BED: 02 DIS: 11/06/2024 SPEC #: [id number] RECD: 11/06/24 08:55 STATUS: MAEGAN REMansoor #: [id number] ADDY: 11/05/24 17:[address]: Tamir Donohue DEPT: [facility] Surgical RECD BY: Lissy Morin ENTERED: 11/06/24 08:55 SP TYPE: Surgical OTHR DR: Alecia Sheffield, SECURITY COMPLIANCE SPECIALIST Tissues: A - Gallbladder Procedures: Hematoxylin and Eosin Stain Gross and Microscopic Level 3
--- NOTE | 2024-11-05 17:33 | W.PM.PROC2 ---
Procedure Note - Detailed Date of Procedure 11/05/24 Pre-op Diagnosis Intractable RUQ Pain Post-op Diagnosis Other (Chronic acalculous cholecystitis) Procedure Performed Laparoscopic cholecystectomy Surgeon Tamir Donohue MD Second Crusher SUKHDEEP Monreal Anesthesia General Indications Patient is a 24-year-old female who for the past several weeks has had nearly daily symptoms of right upper quadrant pain with radiation of the pain to her back. Last couple days it is been particularly bad. She has had a emergency room visit for the pain and CT scan abdomen pelvis was unremarkable an abdominal ultrasound showed no gallstones with normal gallbladder wall thickening pericholecystic fluid. She has been on a proton pump inhibitor for many months without improvement of her symptoms. HIDA scan was done this morning showing ejection fraction gallbladder 55% with a patent common bile duct however she did have recreation of her symptoms of pain in the right upper quadrant and back pain with injection of the cholecystokinin. She presents now for a laparoscopic cholecystectomy. Findings The gallbladder distended with some minimal thickening of the gallbladder wall. There were no adhesions of the colon, duodenum, or stomach to the gallbladder. No gallstones were palpated. Description of Procedure After informed consent was obtained patient brought to the operating room she was placed supine position and general endotracheal anesthesia was administered. The abdomen was then prepped and draped usual sterile fashion. Time-out was then performed correctly identifying the patient as well as procedure to be performed. She was given perioperative IV antibiotics. After the procedure by entering the abdomen left upper quadrant utilizing a 5mm Optiview port. Once inside the abdomen insufflated to adequate pneumoperitoneum of 15mmHg of CO2. I could see there were no adhesions in the periumbilical region so then placed a 5mm periumbilical trocar port and then looking to the upper portion of the abdomen I placed a 10mm epigastric trocar port and 2 more 5mm right subcostal trocar ports all under direct visualization. Working through these ports a laparoscopic grasper was used to the gallbladder at the dome and the gallbladder was elevated over the right half of liver towards the right shoulder. The gallbladder wall was minimally thickened and there were no adhesions of the duodenum, omentum, stomach, or colon to the infundibular gallbladder. A 2nd grasper used that hold the gallbladder at the infundibulum. I then proceeded to strip down the visceral peritoneum off of the infundibular gallbladder and identified the cystic duct. The cystic duct was then dissected out circumferentially. The cystic artery was identified it was then dissected out circumferentially as well. The posterior wall the gallbladder at the infundibulum dissected free liver into the critical view was obtained. At this point I then placed 2 clips proximally cystic duct and 2 clips distally high on infundibular gallbladder. The cystic duct was then divided Endo Claudia. In a similar fashion cystic artery was then clipped and divided as well. The gallbladder was resected off the liver utilized electrocautery. At 1 point during dissection a small defect was made in the gallbladder wall and there was spillage of normal-appearing bile. This was quickly aspirated from the abdomen out of the gallbladder. Once I completed resection of the gallbladder off the liver bed I then placed into an Endo-Catch bag and brought out through the epigastric trocar port site. The gallbladder was palpated there were no gallstones. It was sent to pathology for examination. I then extensively irrigated out the right upper quadrant the abdomen aspirating all the bile in the area. At in the pre irrigation the fluid was clear without any bile staining. Aspirated the fluid from the pelvis as well. Gallbladder fossa appeared to be static and there is no evidence of bile leak. I then removed all the trocar ports under direct visualization and all port sites appeared hemostatic. The abdomen was then allowed to decompress. I then irrigated out the port sites sterile saline solution hemostasis was good. I then closed the epigastric 10mm trocar port fascial defect utilizing 0 Vicryl suture. The skin edges in all the port sites were then approximated utilizing a running subcuticular 4 Monocryl suture. The incisions were then cleaned the skin glue was applied. The patient tolerated the procedure well no complications. All sponges, needles, and instrument counts were correct at the end procedure. EBL was _15__cc. The patient was awakened and taken to recovery in stable and satisfactory condition. Implants None Estimated Blood Loss 15 Drains No Packing No Pathology Yes (Gallbladder sent to pathology) Complications No immediate complications Condition Stable Disposition PACU [facility] Billing Surgery - Charge Forward: Surgery Billing
[2024-11-05] MEDS: MORPHINE SULFATE (*CRX) 4 MG/ML INJ 2 MG IV PUSH (21:48)
[2024-11-06] MEDS: MORPHINE SULFATE (*CRX) 4 MG/ML INJ IV PUSH ×3 (04:58→12:50)
[2024-11-06 05:44] VITALS: BP 126/70; PULSE 75; RESP 12; TEMP 35.9; O2SAT 98
[2024-11-06] MEDS: SODIUM CHLORIDE 0.9% IV 1,000 ML 125 ML IV CONT (06:09)
[2024-11-06 08:28] LABS: Hematocrit 41.7 % (37.0-47.0); Hemoglobin 14.1 g/dL (12.0-15.0); Mean Corpuscular HGB Conc 33.8 g/dl (32-36); Mean Corpuscular Hemoglobin 30.2 pg (26-34); Mean Corpuscular Volume 89.3 fl (80-100); Platelet Count Result 288 k/mm3 (150-375); Red Blood Count 4.67 M/mm3 (4.2-5.4); White Blood Count 11.2 K/mm3 (4.5-10.0)
[2024-11-06 09:00] LABS: Alanine Aminotransferase 24 U/L (6-35); Albumin Level 4.3 g/dL (3.5-5.1); Alkaline Phosphatase 97 U/L (38-126); Anion Gap 9 mmol/L (4-12); Aspartate Amino Transferase 41 U/L (14-36); Bilirubin,Total 0.5 mg/dL (0.2-1.3); Blood Urea Nitrogen 7 mg/dL (7-17); Calcium 9.0 mg/dL (8.4-10.2); Carbon Dioxide 23 mmol/L (22-30); Chloride 101 mmol/L (98-107); Estimated CRCL calculation 107 ml/min; Estimated Glomerular Filt Rate > 60; Glucose 105 mg/dL (65-110); Potassium 4.2 mmol/L (3.4-5.0); Sodium 133 mmol/L (137-145); Total Protein 7.5 g/dL (6.3-8.2)
[2024-11-06] MEDS: SERTRALINE HCL 50 MG TABLET 100 MG PO (09:03)
[2024-11-06] MEDS: FAMOTIDINE 20 MG/2 ML VIAL IV PUSH (09:04)
--- NOTE | 2024-11-06 10:14 | WPDANESPN ---
Anes - Prog Note Post-Op Date/Time: 11/06/24 10:14 Cardiovascular status: normal Respiratory status: normal Airway patency: baseline Mental status: baseline Post-Op hydration status: normal Vital Signs: Last Vital Signs Temp 35.9 C L 11/06/24 05:44 Pulse 75 11/06/24 05:44 Resp 12 11/06/24 05:44 BP 126/70 11/06/24 05:44 Pulse Ox 98 11/06/24 05:44 O2 Del Method Room Air 11/05/24 21:51 O2 Flow Rate 10 11/05/24 18:00 Pain Score (VAS): 0 I/O: Intake & Output 11/05/24 11/06/24 11/06/24 23:59 07:59 15:59 Intake Total 1850 1500 240 Balance 1850 1500 240 Laboratory Tests 11/06/24 08:21 11/06/24 08:21 11/06/24 08:21 WBC 11.2 H RBC 4.67 Hgb 14.1 Hct 41.7 MCV 89.3 MCH 30.2 MCHC 33.8 RDW 12.3 Plt Count 288 MPV 10.5 H Sodium 133 L Potassium 4.2 Chloride 101 Carbon Dioxide 23 Anion Gap 9 BUN 7 Creatinine 0.76 Estim Creat Clear Calc 107 Estimated GFR > 60 Glucose 105 Calcium 9.0 Total Bilirubin 0.5 AST 41 H ALT 24 Alkaline Phosphatase 97 Total Protein 7.5 Albumin 4.3 Post-procedural complaints: none Patient Feedback: Patient satisfied with anesthetic care.
[2024-11-06 14:00] VITALS: BP 119/64; PULSE 106; RESP 18; TEMP 36.5; O2SAT 95
--- NOTE | 2024-11-06 16:02 | P.DS_ITS ---
DS: Admitting Diagnosis Discharge Date 11/06/2024 Admitting Diagnosis Right upper quadrant pain DS: Discharge Diagnosis Discharge Diagnosis (1) Intractable right upper quadrant abdominal pain: Code(s): R10.11 - Right upper quadrant pain Status: Acute DS: Summary Hospital Course Reason for hospitalization: Patient was directly admitted from our outpatient office on 11/04/2024 for intractable right upper quadrant abdominal pain. She had also noticed decreased appetite associated with nausea and vomiting as well as constipation. She went to [facility] ED on 10/28/2024 and again on 10/30/2024 for abdominal pain. Abdominal ultrasound showed a positive sonographic Patel sign, but normal appearing gallbladder. CT scan was also negative. Patient endorsed similar episodes of pain in the summer. She had also seen GI who recommended cessation of marijuana use and continuation of omeprazole. Hospital Course: Patient was a directly admitted to the medical surgical floor from general surgery Office. A HIDA scan was ordered for the following morning and patient was placed on clear liquids. Pain was managed with morphine. Labs were obtained and showed no acute abnormalities. HIDA scan was performed on 11/05/2024 and showed normal hepatobiliary scintigraphy. She did spike a low- grade fever of 100? F that afternoon. She also became mildly tachycardic. Due to pain and nausea, the decision was made to proceed with surgery. Risks, benefits, and alternatives were discussed with the patient. She underwent laparoscopic cholecystectomy on 11/05/2024. The patient tolerated procedure well with no complications. She was awakened and taken to recovery room in stable and condition. No acute events overnight. Patient's vital signs remained stable aside from mild tachycardia. WBC 11.2, likely postoperative reaction. Patient was able to tolerate a regular diet without nausea or vomiting. Pain at a tolerable level. Incision sites clean and dry with no areas of obvious infection. Ambulating without assistance. Surgically stable for discharge. Status at Discharge Functional status at discharge: independent ambulation Time Spent with Patient Time attestation: Total time spent providing and/or coordinating discharge services: Exam Const: General: comfortable and no acute distress Eyes: General: appearance normal, both eyes and all related structures Neck: Neck: supple Resp: Effort & Inspection: normal respiratory effort Cardio: Rate: tachycardic GI: Inspection: non-distended GI Palp: Yes Soft to palpation, Yes Tenderness to palpation present (GI) (Mild tenderness to incision sites.), No Guarding due to palpation present (GI) and No Hernia present Skin: General skin exam: normal color and no rashes or lesions noted Neuro: Sensory Exam: normal sensation Extrem: General: normal to inspection Psych: Mental Status: mental status grossly normal DS: Data Data Completed and Pending Pending studies at discharge: Pending at discharge 11/05/24 17:15 Surgical [PTH] Routine Labs on day of discharge: Labs from last 24 hours 11/06/24 08:21 WBC 11.2 H RBC 4.67 Hgb 14.1 Hct 41.7 MCV 89.3 MCH 30.2 MCHC 33.8 RDW 12.3 Plt Count 288 MPV 10.5 H Sodium 133 L Potassium 4.2 Chloride 101 Carbon Dioxide 23 Anion Gap 9 BUN 7 Creatinine 0.76 Estim Creat Clear Calc 107 Estimated GFR > 60 Glucose 105 Calcium 9.0 Total Bilirubin 0.5 AST 41 H ALT 24 Alkaline Phosphatase 97 Total Protein 7.5 Albumin 4.3 Procedures/Treatments: Procedures Operation Date: 11/05/24 16:30 Actual Procedure Side Surgeon p Laparoscopic Cholecystectomy Not Applicable Tamir Donohue MD Imaging Radiologist's impression: ITS Impressions Hepatobiliary Scan Nuclear Medicine 11/05/24 09:20 IMPRESSION: 1. Normal hepatobiliary scintigraphy. Discharge Plan Discharge Attending physician on discharge: Tamir Donohue Discharging Clinician: Jihan Kirkpatrick Patient Disposition: Home Activity: may shower Diet: regular Wound Care Instructions: follow printed instructions Discharge Instructions: PATIENT TO TAKE HOME 1. May shower in 24 hours, no soaking in bath, pool, or any other body of water x 2 weeks. 2. Call office for: * Wound increasingly painful or bleeding * Vomiting * Fever of greater than 101 degrees 3. If no bowel movement for three days, take 1 oz. (30 ml) Milk of Magnesia or MiraLax 17g 1 to 2 times daily. 4. No heavy lifting > 10-15 pounds x 2 weeks for laparoscopic cholecystectomy or appendectomy. 5. No driving for 3 days or while taking narcotic pain medications. 6. Ice to surgical site for 48 hours (30 min on, then 30 min off). 7. Up walking 10-30 minutes three times per day. 8. Resume previous home medications. 9. Follow-up 10-14 days in office for wound check or as previously scheduled. ([id number]) 10. Oral pain medications prescription to be sent to pharmacy. Take Tylenol 500mg every 6 hours and Ibuprofen 600mg every 6 hours for the first 2 days, then as needed. 11. NUTRITION: Start out by drinking fluids and increase your diet as tolerated. If you experience nausea, try dry toast, crackers, and 7-UP. If nausea or vomiting persists, contact your surgeon?s office. Revised June 2018 Patient Instructions: Antibiotic Form Patient Language: Slovenian Stand Alone Forms: General Discharge Information Follow-up/Referrals: Tamir Donohue MD [Physician, General Surgery] - 2 Weeks Referral Note: Call to schedule follow-up appointment. Discharge Medications: New hydrocodone-acetaminophen 5-325 mg tablet 1 - 2 tablet PO Q4H PRN (Reason: pain) Qty: 20 0RF Continued esomeprazole magnesium 40 mg capsule,delayed release(DR/EC) 40 mg PO DAILY sertraline [Zoloft] 100 mg tablet 100 mg PO DAILY ondansetron HCl 4 mg tablet 4 mg PO Q4H dicyclomine 10 mg capsule 10 mg PO QID PRN (Reason: abdominal pain) Date of admission: 11/04/24 15:22 Primary Care Provider: Yohannes,Alecia Abad Admitting Provider: Tamir Donohue Attending physician on admission: Tamir Donohue Condition: Improved
== END 2024-11-06 15:30 | disposition home or self-care (01) ==
PROVIDERS: Nurse Practitioner Family; Admitting Provider Surgery; PCP Nurse Practitioner Adult Health; Visit Provider Surgery
PROC: 0FT44ZZ Resection of Gallbladder, Percutaneous Endoscopic Approach (ICD-10-PCS; CPT 47562; principal; 2024-11-05 16:30)
DX: K81.1 Chronic cholecystitis (principal); R11.2 Nausea with vomiting, unspecified; K21.9 Gastro-esophageal reflux disease without esophagitis
CPT/HCPCS: 47562; 36415; 78227; 80053; 83690; 85025; 85027; 85610; 85730; 86850; 86900; 86901; 88304; J0690; A9270; A9537; G0378; J1100; J1171; J1200; J2003; J2004; J2250; J2270; J2405; J2704; J2805; J7030; J7120

== ENCOUNTER 2024-12-10 06:03 | Emergency (ER) | payer OTHER, SELFPAY ==
--- NOTE | ~2024-12-10 | CT_ITS ---
EXAMINATION: CT abdomen pelvis w con DATE: 12/10/2024 06:56 INDICATION: Chronic periumbilical abdominal pain. TECHNIQUE: Computed tomography (CT) of the abdomen and pelvis was performed with 100 mL Omnipaque 350 intravenous contrast. Automated exposure control and iterative reconstruction technique were employed. The dose-length product was 596.68 mGy-cm. COMPARISON: CT abdomen and pelvis 10/30/2024 FINDINGS: The visualized portions of the lung bases demonstrate mild atelectasis. No pleural effusion. The heart size is normal. No pericardial effusion. The liver and spleen are normal. There are changes of cholecystectomy. The pancreas, adrenal glands, and kidneys are normal. There are no dilated loops of bowel. The appendix is normal. There are no pathologically enlarged lymph nodes. There is physiologic fluid in the pelvis. There is mild thoracic spondylosis. IMPRESSION: 1. No etiology for the patient's symptoms. Reviewed, dictated and finalized at location E.
[2024-12-10 06:08] VITALS: BP 147/78; PULSE 90; RESP 18; TEMP 36.9; O2SAT 98
--- NOTE | 2024-12-10 06:16 | ED.ABDPAIN ---
HPI - Abdominal Pain General Chief Complaint: Abdominal Pain <Juice Danielle MD - Last Filed: 12/11/24 03:50> Stated Complaint: nausea/vomiting/abd pain <Juice Danielle MD - Last Filed: 12/11/24 03:50> Time Seen by Provider: 12/10/24 06:05 <Juice Danielle MD - Last Filed: 12/11/24 03:50> History of Present Illness HPI narrative: 24-year-old female presenting with chronic abdominal pain. Patient states she has been having abdominal pain for months and not been having any relief with her therapies at home. She states her pain currently is located in her umbilical region and not radiating anywhere. She has tried histamine blockers, Bentyl, Zofran, pain pills and has not had any relief. She thought that she had some minor improvement after she had her gallbladder taken out over a month ago and then her symptoms recurred afterwards. Has seen a GI doctor previously and has had multiple CT scans ultrasounds and HIDA scans showing unremarkable findings and workup. Gallbladder pathology from General surgery last month showed chronic cholecystitis. <Juice Danielle MD - Last Filed: 12/11/24 03:50> Related Data Home Medications: Home Medications ?Medication ?Instructions ?Recorded ?Confirmed ?Last Taken ?Type esomeprazole magnesium 40 mg 40 mg PO DAILY 09/01/24 11/18/24 Unknown History capsule,delayed release sertraline 100 mg tablet (Zoloft) 100 mg PO DAILY 09/01/24 11/18/24 Unknown History ondansetron HCl 4 mg tablet 4 mg PO Q4H 11/04/24 11/18/24 Unknown History <Juice Danielle MD - Last Filed: 12/11/24 03:50> Allergies/Adverse Reactions: Allergies Allergy/AdvReac Type Severity Reaction Status Date / Time No Known Allergies Allergy Verified 12/10/24 06:04 <Juice Danielle MD - Last Filed: 12/11/24 03:50> Review of Systems Review of Systems: As reviewed above in HPI <Juice Danielle MD - Last Filed: 12/11/24 03:50> [facility] Past Medical History Medical History: Medical History GERD (gastroesophageal reflux disease) Nausea and vomiting Eczema <Juice Danielle MD - Last Filed: 12/11/24 03:50> Surgical History Surgical History: Surgical History Hx laparoscopic cholecystectomy Laparoscopic cholecystectomy 11/06 Dr. Charanjit ochoa No significant past surgical history <Juice Danielle MD - Last Filed: 12/11/24 03:50> Family History Family History: Family History Father No problems noted. Mother Leukemia Gallbladder disease Other Diabetes mellitus Other Diabetes mellitus Other Ovarian cyst <Juice Danielle MD - Last Filed: 12/11/24 03:50> Social History Social History: Social History Smoking status: Never smoker Tobacco type: cigarettes Second hand tobacco smoke exposure: Yes (parents) Alcohol intake: current Drinks per week: 1 Substance use: current Substance use type: marijuana Other substance usage details: near daily for pain Lack of Transportation: No Lack of Food: Never True Current Housing: I Have Housing Concerned About Future Housing: No Difficulty Paying Gas/Electric Bills: No Difficulty Paying for Meds: No Currently Unemployed: No Education: High School Diploma/GED Difficulty w/ Childcare or Family Care: No Living arrangements: with family Occupation/Education: student Gender identity (if verbalized by the patient): Female Spiritual care concerns: No <Juice Danielle MD - Last Filed: 12/11/24 03:50> Exam Narrative: GENERAL: [Well-appearing, well-nourished, and in no acute distress.] HEAD: [Normocephalic, atraumatic.] EYES: [PERRLA and EOMI.] ENT: Nares clear, no rhinorrhea or epistaxis. Mucous membranes moist. NECK: Supple. CHEST: [Clear to auscultation. No respiratory distress.] HEART: [Regular rate and rhythm]. No murmur heard. [Normal peripheral pulses.] ABDOMEN: Soft and nondistended. Tender to palpation in the umbilical region. No signs of peritonitis rigidity or guarding. Incisions are all clean dry and intact without any signs of redness irritation or infection. EXTREMITIES: Normal range of motion. [No edema.] SKIN: Warm, dry, no rash. NEURO: [No focal deficits]. Alert and oriented [x3.] PSYCH: [Normal mood and affect.] <Juice Danielle MD - Last Filed: 12/11/24 03:50> Course Reevaluation(s) Reevaluation #1: I assumed care of this patient at shift change with pending CT. Re-examined the patient she was comfortably lying informed her about the lab work and CT findings. Cause of her pain is unknown at this time. Advised her to continue home medication, follow-up with her primary doctor. <Jori Sweet MD - Last Filed: 12/10/24 07:38> Date: 12/10/24 <Jori Sweet MD - Last Filed: 12/10/24 07:38> Vital Signs Vital signs: Vital Signs Temperature 36.9 C 12/10/24 06:08 Pulse Rate 90 12/10/24 06:08 Respiratory Rate 18 12/10/24 06:08 Blood Pressure 147/78 H 12/10/24 06:08 Pulse Oximetry 98 12/10/24 06:08 Oxygen Delivery Room Air 12/10/24 06:08 Temperature 36.9 C 12/10/24 06:08 Pulse Rate 79 12/10/24 07:47 Respiratory Rate 16 12/10/24 07:47 Blood Pressure 124/87 12/10/24 07:47 Pulse Oximetry 99 12/10/24 07:47 Oxygen Delivery Room Air 12/10/24 06:08 <Juice Danielle MD - Last Filed: 12/11/24 03:50> Vital Signs Temperature 36.9 C 12/10/24 06:08 Pulse Rate 90 12/10/24 06:08 Respiratory Rate 18 12/10/24 06:08 Blood Pressure 147/78 H 12/10/24 06:08 Pulse Oximetry 98 12/10/24 06:08 Oxygen Delivery Room Air 12/10/24 06:08 Temperature 36.9 C 12/10/24 06:08 Pulse Rate 79 12/10/24 07:47 Respiratory Rate 16 12/10/24 07:47 Blood Pressure 124/87 12/10/24 07:47 Pulse Oximetry 99 12/10/24 07:47 Oxygen Delivery Room Air 12/10/24 06:08 <Jori Sweet MD - Last Filed: 12/10/24 07:38> MDM - Abdominal Pain MDM Narrative Medical decision making narrative: 24-year-old female presenting with chronic abdominal pain. Patient states she has been having abdominal pain for months and not been having any relief with her therapies at home. She states her pain currently is located in her umbilical region and not radiating anywhere. She has tried histamine blockers, Bentyl, Zofran, pain pills and has not had any relief. She thought that she had some minor improvement after she had her gallbladder taken out over a month ago and then her symptoms recurred afterwards. Has seen a GI doctor previously and has had multiple CT scans ultrasounds and HIDA scans showing unremarkable findings and workup. Gallbladder pathology from General surgery last month showed chronic cholecystitis. Patient has an unremarkable examination with a soft nondistended abdomen with normal healed incision sites. Mildly tender to palpation in the umbilical region but no rigidity guarding or peritonitis. Afebrile with no tachycardia. No tachypnea or hypoxemia. Slightly elevated blood pressure but not severe. Given patient's chronicity of symptoms going on for many months unlikely emergent intra-abdominal process or related to her recent surgery but will evaluate with laboratory studies and CT scan of the abdomen pelvis with contrast for further evaluation. She was given Reglan and diphenhydramine as well as fluids for her nausea presently as well as Bentyl for some abdominal discomfort. Laboratory studies showed no leukocytosis or anemia. Normal platelet count. Electrolytes unremarkable. Normal kidney and liver function. Urinalysis shows 3+ bacteria, white blood cells and leukocyte esterase. Will treat for presumptive UTI which could also explain her symptoms. Given a dose of Rocephin IV. CT scan pending and patient signed over to morning physician pending results and final disposition. <Juice Danielle MD - Last Filed: 12/11/24 03:50> Medical Records Attestation: I reviewed the patient's medical records. <Juice Danielle MD - Last Filed: 12/11/24 03:50> Lab Data Attestation: I reviewed the patient's lab results. <Juice Danielle MD - Last Filed: 12/11/24 03:50> Result diagrams: 12/10/24 06:14 12/10/24 06:14 <Juice Danielle MD - Last Filed: 12/11/24 03:50> Labs: Lab Results 12/10/24 12/10/24 Range/Units 06:14 06:19 WBC 9.3 (4.5-10.0) K/mm3 RBC 4.82 (4.2-5.4) M/mm3 Hgb 14.5 (12.0-15.0) g/dL Hct 43.7 (37.0-47.0) % MCV 90.7 (80-100) fl MCH 30.1 (26-34) pg MCHC 33.2 (32-36) g/dl RDW 12.9 (11.5-14.5) % Plt Count 253 (150-375) k/mm3 MPV 10.7 H (7.4-10.4) fl Immature Gran % (Auto) 0.1 (0-0.5) % Neut % (Auto) 68.8 (45.5-73.1) % Lymph % (Auto) 22.3 (18.3-44.2) % [place] % (Auto) 5.9 (2.6-8.5) % Eos % (Auto) 2.7 (0-4.4) % Baso % (Auto) 0.2 (0.2-1.2) % Lymph # (Auto) 2.07 (0.9-3.2) K/mm3 [place] # (Auto) 0.6 (0.1-0.6) K/mm3 Eos # (Auto) 0.3 (0-0.3) K/mm3 Baso # (Auto) 0.0 (0.0-0.1) K/mm3 Abs Immat Gran (auto) 0.01 (0.00-0.031) K/mm3 Absolute Neuts (auto) 6.4 (1.3-6.7) K/mm3 Absolute Nucleated RBC 0.000 (0.0-0.012) K/mm3 Nucleated RBC % 0.0 (0.0-0.2) % Sodium 138 (137-145) mmol/L Potassium 4.0 (3.4-5.0) mmol/L Chloride 107 (98-107) mmol/L Carbon Dioxide 21 L (22-30) mmol/L Anion Gap 10 (4-12) mmol/L BUN 13 D (7-17) mg/dL Creatinine 0.74 (0.7-1.0) mg/dL Estim Creat Clear Calc 110 ml/min Estimated GFR > 60 (59 - ) Glucose 106 (65-110) mg/dL Calcium 9.4 (8.4-10.2) mg/dL Total Bilirubin 0.5 (0.2-1.3) mg/dL AST 33 (14-36) U/L ALT 17 (6-35) U/L Alkaline Phosphatase 110 (38-126) U/L Total Protein 7.9 (6.3-8.2) g/dL Albumin 4.6 (3.5-5.1) g/dL Lipase 79 (23-300) U/L Urine Color Yellow (Yellow) Urine Appearance Cloudy H (Clear) Urine pH 5.0 (5.0-9.0) Ur Specific [place] 1.023 (1.001-1.035) Urine Protein Negative (Negative) mg/dL Urine Glucose (UA) Negative (Negative) mg/dL Urine Ketones Trace H (Negative) mg/dL Ur Blood (Man) Negative (Negative) Urine Nitrate Negative (Negative) Urine Bilirubin Negative (Negative) Urine Urobilinogen 1.0 (<2.0) mg/dL Leukocyte Esterase Rfl 1+ H (Negative) LYNNE/UL Urine RBC 0-2 (0-2) /hpf Urine WBC 11-20 H (0-3) /hpf Ur Squamous Epith Cells Moderate (Few) /hpf Urine Bacteria 3+ H /hpf Urine Casts 0-2 POC Urine HCG, Qual Negative (Negative) <Juice Danielle MD - Last Filed: 12/11/24 03:50> Lab Results 12/10/24 12/10/24 Range/Units 06:14 06:19 WBC 9.3 (4.5-10.0) K/mm3 RBC 4.82 (4.2-5.4) M/mm3 Hgb 14.5 (12.0-15.0) g/dL Hct 43.7 (37.0-47.0) % MCV 90.7 (80-100) fl MCH 30.1 (26-34) pg MCHC 33.2 (32-36) g/dl RDW 12.9 (11.5-14.5) % Plt Count 253 (150-375) k/mm3 MPV 10.7 H (7.4-10.4) fl Immature Gran % (Auto) 0.1 (0-0.5) % Neut % (Auto) 68.8 (45.5-73.1) % Lymph % (Auto) 22.3 (18.3-44.2) % [place] % (Auto) 5.9 (2.6-8.5) % Eos % (Auto) 2.7 (0-4.4) % Baso % (Auto) 0.2 (0.2-1.2) % Lymph # (Auto) 2.07 (0.9-3.2) K/mm3 [place] # (Auto) 0.6 (0.1-0.6) K/mm3 Eos # (Auto) 0.3 (0-0.3) K/mm3 Baso # (Auto) 0.0 (0.0-0.1) K/mm3 Abs Immat Gran (auto) 0.01 (0.00-0.031) K/mm3 Absolute Neuts (auto) 6.4 (1.3-6.7) K/mm3 Absolute Nucleated RBC 0.000 (0.0-0.012) K/mm3 Nucleated RBC % 0.0 (0.0-0.2) % Sodium 138 (137-145) mmol/L Potassium 4.0 (3.4-5.0) mmol/L Chloride 107 (98-107) mmol/L Carbon Dioxide 21 L (22-30) mmol/L Anion Gap 10 (4-12) mmol/L BUN 13 D (7-17) mg/dL Creatinine 0.74 (0.7-1.0) mg/dL Estim Creat Clear Calc 110 ml/min Estimated GFR > 60 (59 - ) Glucose 106 (65-110) mg/dL Calcium 9.4 (8.4-10.2) mg/dL Total Bilirubin 0.5 (0.2-1.3) mg/dL AST 33 (14-36) U/L ALT 17 (6-35) U/L Alkaline Phosphatase 110 (38-126) U/L Total Protein 7.9 (6.3-8.2) g/dL Albumin 4.6 (3.5-5.1) g/dL Lipase 79 (23-300) U/L Urine Color Yellow (Yellow) Urine Appearance Cloudy H (Clear) Urine pH 5.0 (5.0-9.0) Ur Specific [place] 1.023 (1.001-1.035) Urine Protein Negative (Negative) mg/dL Urine Glucose (UA) Negative (Negative) mg/dL Urine Ketones Trace H (Negative) mg/dL Ur Blood (Man) Negative (Negative) Urine Nitrate Negative (Negative) Urine Bilirubin Negative (Negative) Urine Urobilinogen 1.0 (<2.0) mg/dL Leukocyte Esterase Rfl 1+ H (Negative) LYNNE/UL Urine RBC 0-2 (0-2) /hpf Urine WBC 11-20 H (0-3) /hpf Ur Squamous Epith Cells Moderate (Few) /hpf Urine Bacteria 3+ H /hpf Urine Casts 0-2 POC Urine HCG, Qual Negative (Negative) <Jori Sweet MD - Last Filed: 12/10/24 07:38> Imaging Data Radiologist's impression: ITS Impressions Abdomen/Pelvis CT 12/10/24 06:59 IMPRESSION: 1. No etiology for the patient's symptoms. <Juice Danielle MD - Last Filed: 12/11/24 03:50> ITS Impressions Abdomen/Pelvis CT 12/10/24 06:59 IMPRESSION: 1. No etiology for the patient's symptoms. <Jori Sweet MD - Last Filed: 12/10/24 07:38> Discharge Plan Discharge Clinical Impression: Chronic abdominal pain, UTI (urinary tract infection) <Juice Danielle MD - Last Filed: 12/11/24 03:50> Patient Disposition: Home <Juice Danielle MD - Last Filed: 12/11/24 03:50> Condition: Stable <Juice Danielle MD - Last Filed: 12/11/24 03:50> Instructions: Antibiotic Form, Abdominal Pain (ED) <Juice Danielle MD - Last Filed: 12/11/24 03:50> Patient Language: Occitan <Juice Danielle MD - Last Filed: 12/11/24 03:50> Prescriptions: New cephalexin 500 mg capsule 500 mg PO Q12H 5 Days Qty: 10 0RF No Action esomeprazole magnesium 40 mg capsule,delayed release(DR/EC) 40 mg PO DAILY sertraline [Zoloft] 100 mg tablet 100 mg PO DAILY ondansetron HCl 4 mg tablet 4 mg PO Q4H <Juice Danielle MD - Last Filed: 12/11/24 03:50> Follow-up/Referrals: Yohannes,Alecia Abad APRN [Primary Care Provider, Unknown] <Juice Danielle MD - Last Filed: 12/11/24 03:50> Stand Alone Forms: Work/School Release IP <Juice Danielle MD - Last Filed: 12/11/24 03:50> Time of Disposition: 07:38 <Juice Danielle MD - Last Filed: 12/11/24 03:50> 07:38 <Jori Sweet MD - Last Filed: 12/10/24 07:38>
[2024-12-10 06:21] LABS: BEDSIDEPREGUCG Negative (Negative)
[2024-12-10 06:22] LABS: Hematocrit 43.7 % (37.0-47.0); Hemoglobin 14.5 g/dL (12.0-15.0); Immature Granulocyte Percent A 0.1 % (0-0.5); Lymphocytes Absolute Auto 2.07 K/mm3 (0.9-3.2); Mean Corpuscular HGB Conc 33.2 g/dl (32-36); Mean Corpuscular Hemoglobin 30.1 pg (26-34); Mean Corpuscular Volume 90.7 fl (80-100); Nucleated Red Blood Cells Absolute Auto 0.000 K/mm3 (0.0-0.012); Nucleated Red Blood Cells Perc 0.0 % (0.0-0.2); Platelet Count Result 253 k/mm3 (150-375); Red Blood Count 4.82 M/mm3 (4.2-5.4); White Blood Count 9.3 K/mm3 (4.5-10.0)
[2024-12-10] MEDS: METOCLOPRAMIDE HCL INJ 10 MG/2 ML VIAL IV PUSH (06:25)
[2024-12-10] MEDS: DICYCLOMINE HCL 10 MG CAPSULE 20 MG PO (06:25)
[2024-12-10] MEDS: LACTATED RINGERS 1,000 ML 999 ML IV CONT (06:25)
[2024-12-10 06:32] LABS: Add Urine Microscopic? YES; Appearance Urine Cloudy (Clear); Glucose Urine UA Negative (Negative); Leukocyte Esterase Ur 1+ LEU/UL (Negative); Nitrate Urine Negative (Negative); Non Pathogenic Casts 0-2; Specific Grav Ur 1.023 (1.001-1.035)
[2024-12-10 06:39] LABS: Alanine Aminotransferase 17 U/L (6-35); Albumin Level 4.6 g/dL (3.5-5.1); Alkaline Phosphatase 110 U/L (38-126); Anion Gap 10 mmol/L (4-12); Aspartate Amino Transferase 33 U/L (14-36); Bilirubin,Total 0.5 mg/dL (0.2-1.3); Blood Urea Nitrogen 13 mg/dL (7-17); Calcium 9.4 mg/dL (8.4-10.2); Carbon Dioxide 21 mmol/L (22-30); Chloride 107 mmol/L (98-107); Estimated CRCL calculation 110 ml/min; Estimated Glomerular Filt Rate > 60; Glucose 106 mg/dL (65-110); Lipase 79 U/L (23-300); Potassium 4.0 mmol/L (3.4-5.0); Sodium 138 mmol/L (137-145); Total Protein 7.9 g/dL (6.3-8.2)
--- NOTE | 2024-12-10 06:48 | PC.NURSE ---
verbalizes no blood cultures needed before starting antibiotics.
[2024-12-10] MEDS: cefTRIAXone 1 GM in SODIUM CHLORIDE 0.9% IV 50 ML 100 ML IVPB (07:00)
[2024-12-10 07:47] VITALS: BP 124/87; PULSE 79; RESP 16; O2SAT 99
== END 2024-12-10 07:48 | disposition home or self-care (01) ==
PROVIDERS: Student in an Organized Health Care Education/Training Program; Emergency Provider Family Medicine; PCP Nurse Practitioner Adult Health
DX: N39.0 Urinary tract infection, site not specified (principal); R10.33 Periumbilical pain; G89.29 Other chronic pain; K21.9 Gastro-esophageal reflux disease without esophagitis; Z90.49 Acquired absence of other specified parts of digestive tract
CPT/HCPCS: 36415; 74177; 80053; 81001; 81025; 83690; 85025; 96365; 96375; 99284; A9270; J0696; J1200; J2765; J7120; Q9967

== ENCOUNTER 2024-12-15 13:13 | Emergency (ER) | payer OTHER, SELFPAY ==
--- NOTE | ~2024-12-15 | CT_ITS ---
EXAMINATION: CT abdomen pelvis w con DATE: 12/15/2024 17:58 INDICATION: Abdominal pain TECHNIQUE: Computed tomography (CT) of the abdomen and pelvis was performed with 100 cc Omnipaque 350 intravenous contrast. The dose-length product was 484.19 mGy-cm. Automated exposure control and iterative reconstruction technique were employed. COMPARISON: CT dated 12/10/2024. FINDINGS: There is dependent atelectasis. Heart size normal. No significant pleural or pericardial effusion. Fatty infiltration of the liver. Status post cholecystectomy. The spleen, pancreas, adrenal glands and kidneys are unremarkable. No hydronephrosis. No abnormal pelvic masses. Small amount of free fluid in the pelvis, likely physiologic. There is a retroaortic left renal vein. There is an involuting corpus luteal cyst of the right ovary, measuring approximately 1.4 cm. Mild thickening of the endometrium. No acute osseous abnormality. IMPRESSION: 1. Involuting right ovarian corpus luteal cyst measuring 1.4 cm. Small amount of free fluid in the pelvis. Reviewed, dictated and finalized at location O. [facility] IMPRESSION: 1. Involuting right ovarian corpus luteal cyst measuring 1.4 cm. Small amount o f free fluid in the pelvis.
[2024-12-15 13:16] VITALS: BP 150/91; PULSE 98; RESP 20; TEMP 36.8; O2SAT 100
--- NOTE | 2024-12-15 15:38 | ED.ABDPAIN ---
HPI - Abdominal Pain General Chief Complaint: Abdominal Pain <JULIAN Barrera - Last Filed: 12/16/24 15:53> Stated Complaint: abdominal pain <JULIAN Barrera - Last Filed: 12/16/24 15:53> Time Seen by Provider: 12/15/24 15:38 <JULIAN Barrera - Last Filed: 12/16/24 15:53> Focused HPI: Patient is a 24 year old male presenting with vomiting for two weeks. She endorses gallbladder removal surgery in October. She is experiencing left upper quadrant abdominal pain that started this morning as well as cp that began this morning. Describes the cp as diffuse pressure. Currently being treated for UTI with Keflex diagnosed last . GENERAL: Ill-appearing, well-nourished, and in mild acute distress. HEAD: Normocephalic, atraumatic. CHEST: Clear to auscultation. ?No respiratory distress. ABDOMINAL: Left upper quadrant tenderness. HEART: Regular rate and rhythm.? NEURO: ?Alert and oriented x3. Patient screened in triage and initial orders placed.? ?Additional care and disposition to be based upon?diagnostic testing and treatment. <JULIAN Barrera - Last Filed: 12/16/24 15:53> History of Present Illness HPI narrative: Agree with HPI <Brijesh Marcus DO - Last Filed: 12/15/24 20:59> Related Data Home Medications: Home Medications ?Medication ?Instructions ?Recorded ?Confirmed ?Last Taken ?Type esomeprazole magnesium 40 mg 40 mg PO DAILY 09/01/24 11/18/24 Unknown History capsule,delayed release sertraline 100 mg tablet (Zoloft) 100 mg PO DAILY 09/01/24 11/18/24 Unknown History ondansetron HCl 4 mg tablet 4 mg PO Q4H 11/04/24 11/18/24 Unknown History <JULIAN Barrera - Last Filed: 12/16/24 15:53> Allergies/Adverse Reactions: Allergies Allergy/AdvReac Type Severity Reaction Status Date / Time No Known Allergies Allergy Verified 12/10/24 06:04 <JULIAN Barrera - Last Filed: 12/16/24 15:53> Review of Systems Review of Systems: Gen.: Denies fevers or chills Eyes: Denies eye pain or visual change ENT: Denies congestion Respiratory: Denies shortness of breath or cough CV: Denies chest pain or palpitations GI: As per HPI denies burning, urgency, frequency or hematuria Musculoskeletal: Denies back pain or muscle pain Neuro: Denies numbness, tingling, weakness or focal weakness Skin: Denies rash Except as documented, all other systems reviewed and negative <Brijesh Marcus DO - Last Filed: 12/15/24 20:59> FOR[facility], LAT[facility] Past Medical History Medical History: Medical History GERD (gastroesophageal reflux disease) Nausea and vomiting Eczema <JULIAN Barrera - Last Filed: 12/16/24 15:53> Surgical History Surgical History: Surgical History Hx laparoscopic cholecystectomy Laparoscopic cholecystectomy 11/06 Dr. Donohue ab No significant past surgical history <JULIAN Barrera - Last Filed: 12/16/24 15:53> Family History Family History: Family History Father No problems noted. Mother Leukemia Gallbladder disease Other Diabetes mellitus Other Diabetes mellitus Other Ovarian cyst <JULIAN Barrera - Last Filed: 12/16/24 15:53> Social History Social History: Social History Tobacco type: cigarettes Second hand tobacco smoke exposure: Yes (parents) Alcohol intake: current Drinks per week: 1 Substance use: current Substance use type: marijuana Other substance usage details: near daily for pain Lack of Transportation: No Lack of Food: Never True Current Housing: I Have Housing Concerned About Future Housing: No Difficulty Paying Gas/Electric Bills: No Difficulty Paying for Meds: No Currently Unemployed: No Education: High School Diploma/GED Difficulty w/ Childcare or Family Care: No Living arrangements: with family Occupation/Education: student Gender identity (if verbalized by the patient): Female Spiritual care concerns: No <JULIAN Barrera - Last Filed: 12/16/24 15:53> Exam Narrative: APPEARANCE: Mild distress, nontoxic, resting in bed EYES: EOMI HEENT: Normocephalic, atraumatic, OMM RESPIRATORY: No respiratory distress Clear to auscultation bilaterally with no rhonchi wheezing or rales. CARDIOVASCULAR: Regular rate and rhythm without murmurs rubs or gallops. ABDOMINAL: Soft, epigastric tenderness to palpation, nondistended, no rebound or guarding MUSCULOSKELETAl: Moves all extremities. No clubbing, cyanosis or edema. NEURO: Awake and alert. Following commands, speech normal, no focal deficits SKIN:: Warm, dry. No rashes lesions or abrasions PSYCHIATRIC: Normal affect/mood, <DO Christine Narayanan Last Filed: 12/15/24 20:59> Course Vital Signs Vital signs: Vital Signs Temperature 98.3 F 12/15/24 13:16 Pulse Rate 98 12/15/24 13:16 Respiratory Rate 20 12/15/24 13:16 Blood Pressure 150/91 H 12/15/24 13:16 Pulse Oximetry 100 12/15/24 13:16 Oxygen Delivery Room Air 12/15/24 13:16 Temperature 98.3 F 12/15/24 13:16 Pulse Rate 98 12/15/24 13:16 Respiratory Rate 20 12/15/24 13:16 Blood Pressure 150/91 H 12/15/24 13:16 Pulse Oximetry 100 12/15/24 13:16 Oxygen Delivery Room Air 12/15/24 13:16 <JULIAN Barrera - Last Filed: 12/16/24 15:53> Vital Signs Temperature 98.3 F 12/15/24 13:16 Pulse Rate 98 12/15/24 13:16 Respiratory Rate 20 12/15/24 13:16 Blood Pressure 150/91 H 12/15/24 13:16 Pulse Oximetry 100 12/15/24 13:16 Oxygen Delivery Room Air 12/15/24 13:16 Temperature 98.3 F 12/15/24 13:16 Pulse Rate 98 12/15/24 13:16 Respiratory Rate 20 12/15/24 13:16 Blood Pressure 150/91 H 12/15/24 13:16 Pulse Oximetry 100 12/15/24 13:16 Oxygen Delivery Room Air 12/15/24 13:16 <DO Christine Narayanan Last Filed: 12/15/24 20:59> MDM - Abdominal Pain MDM Narrative Medical decision making narrative: 24-year-old female Presenting for epigastric abdominal pain, nausea vomiting. On initial evaluation patient was in mild distress, afebrile, hemodynamic stable. Differentials include but are not limited to: ACS, Cholecystitis, choledocolithiasis, GERD, PUD, Pancreatitis, cannabinoid hyperemesis Notable exam findings: Epigastric tenderness to palpation, tearful Notable lab findings: CBC and CMP without significant abnormalities. UA clear. UDS positive for cannabinoids. Notable imaging findings: CT abdomen/pelvis showed a right ovarian corpus luteal cyst. Unlikely that the cyst is the cause of the patient's symptoms at this time. She was given Zofran and Toradol with minimal improvement in her symptoms. After discussion with the patient, she does admit to using marijuana very frequently and last used yesterday. Suspect that this may be the source of her nausea and vomiting at this time. However, she will still require further evaluation by GI she did not have a full evaluation with previously. Patient was continuing to have symptoms so she was given morphine and Reglan and did have improvement of her symptoms. Patient was deemed appropriate for discharge at this time. Patient was given a prescription for Reglan. Patient was given a referral to Dr. Newton, GI, for further evaluation. Patient was agreeable to this plan. Given strict return precautions. <Brijesh Marcus DO - Last Filed: 12/15/24 20:59> Medical Records Attestation: I reviewed the patient's medical records. <Brijesh Marcus DO - Last Filed: 12/15/24 20:59> Lab Data Attestation: I reviewed the patient's lab results. <Brijesh Marcus DO - Last Filed: 12/15/24 20:59> Result diagrams: 12/15/24 16:33 12/15/24 16:33 <JULIAN Barrera - Last Filed: 12/16/24 15:53> Labs: Lab Results 12/15/24 12/15/24 12/15/24 Range/Units 16:30 16:33 17:28 WBC 9.5 (4.5-10.0) K/mm3 RBC 4.69 (4.2-5.4) M/mm3 Hgb 14.1 (12.0-15.0) g/dL Hct 42.2 (37.0-47.0) % MCV 90.0 (80-100) fl MCH 30.1 (26-34) pg MCHC 33.4 (32-36) g/dl RDW 12.8 (11.5-14.5) % Plt Count 265 (150-375) k/mm3 MPV 10.9 H (7.4-10.4) fl Immature Gran % (Auto) 0.2 (0-0.5) % Neut % (Auto) 65.9 (45.5-73.1) % Lymph % (Auto) 25.5 (18.3-44.2) % [place] % (Auto) 6.1 (2.6-8.5) % Eos % (Auto) 2.0 (0-4.4) % Baso % (Auto) 0.3 (0.2-1.2) % Lymph # (Auto) 2.42 (0.9-3.2) K/mm3 [place] # (Auto) 0.6 (0.1-0.6) K/mm3 Eos # (Auto) 0.2 (0-0.3) K/mm3 Baso # (Auto) 0.0 (0.0-0.1) K/mm3 Abs Immat Gran (auto) 0.02 (0.00-0.031) K/mm3 Absolute Neuts (auto) 6.3 (1.3-6.7) K/mm3 Absolute Nucleated RBC 0.000 (0.0-0.012) K/mm3 Nucleated RBC % 0.0 (0.0-0.2) % Sodium 135 L (137-145) mmol/L Potassium 3.6 (3.4-5.0) mmol/L Chloride 105 (98-107) mmol/L Carbon Dioxide 22 (22-30) mmol/L Anion Gap 8 (4-12) mmol/L BUN 8 D (7-17) mg/dL Creatinine 0.71 (0.7-1.0) mg/dL Estim Creat Clear Calc 113 ml/min Estimated GFR > 60 (59 - ) Glucose 86 (65-110) mg/dL Calcium 9.2 (8.4-10.2) mg/dL Total Bilirubin 0.5 (0.2-1.3) mg/dL AST 24 (14-36) U/L ALT 15 (6-35) U/L Alkaline Phosphatase 107 (38-126) U/L Troponin I < 0.012 (0.000-0.034) ng/mL Total Protein 8.1 (6.3-8.2) g/dL Albumin 4.7 (3.5-5.1) g/dL Lipase 67 (23-300) U/L Urine Color Yellow (Yellow) Urine Appearance Clear (Clear) Urine pH 5.5 (5.0-9.0) Ur Specific [place] 1.018 (1.001-1.035) Urine Protein Negative (Negative) mg/dL Urine Glucose (UA) Negative (Negative) mg/dL Urine Ketones 2+ H (Negative) mg/dL Ur Blood (Man) Negative (Negative) Urine Nitrate Negative (Negative) Urine Bilirubin Negative (Negative) Urine Urobilinogen 0.2 (<2.0) mg/dL Leukocyte Esterase Rfl Negative (Negative) LYNNE/UL POC Urine HCG, Qual Negative (Negative) Urine Opiates Screen Negative (Negative) Urine Methadone Screen Negative (Negative) Ur Barbiturates Screen Negative (Negative) Ur Phencyclidine Scrn Negative (Negative) Ur Amphetamine Screen Negative (Negative) U Benzodiazepines Scrn Negative (Negative) Urine Cocaine Screen Negative (Negative) U Cannabinoids Screen Positive A (Negative) <JULIAN Barrera - Last Filed: 12/16/24 15:53> Lab Results 12/15/24 12/15/24 12/15/24 Range/Units 16:30 16:33 17:28 WBC 9.5 (4.5-10.0) K/mm3 RBC 4.69 (4.2-5.4) M/mm3 Hgb 14.1 (12.0-15.0) g/dL Hct 42.2 (37.0-47.0) % MCV 90.0 (80-100) fl MCH 30.1 (26-34) pg MCHC 33.4 (32-36) g/dl RDW 12.8 (11.5-14.5) % Plt Count 265 (150-375) k/mm3 MPV 10.9 H (7.4-10.4) fl Immature Gran % (Auto) 0.2 (0-0.5) % Neut % (Auto) 65.9 (45.5-73.1) % Lymph % (Auto) 25.5 (18.3-44.2) % [place] % (Auto) 6.1 (2.6-8.5) % Eos % (Auto) 2.0 (0-4.4) % Baso % (Auto) 0.3 (0.2-1.2) % Lymph # (Auto) 2.42 (0.9-3.2) K/mm3 [place] # (Auto) 0.6 (0.1-0.6) K/mm3 Eos # (Auto) 0.2 (0-0.3) K/mm3 Baso # (Auto) 0.0 (0.0-0.1) K/mm3 Abs Immat Gran (auto) 0.02 (0.00-0.031) K/mm3 Absolute Neuts (auto) 6.3 (1.3-6.7) K/mm3 Absolute Nucleated RBC 0.000 (0.0-0.012) K/mm3 Nucleated RBC % 0.0 (0.0-0.2) % Sodium 135 L (137-145) mmol/L Potassium 3.6 (3.4-5.0) mmol/L Chloride 105 (98-107) mmol/L Carbon Dioxide 22 (22-30) mmol/L Anion Gap 8 (4-12) mmol/L BUN 8 D (7-17) mg/dL Creatinine 0.71 (0.7-1.0) mg/dL Estim Creat Clear Calc 113 ml/min Estimated GFR > 60 (59 - ) Glucose 86 (65-110) mg/dL Calcium 9.2 (8.4-10.2) mg/dL Total Bilirubin 0.5 (0.2-1.3) mg/dL AST 24 (14-36) U/L ALT 15 (6-35) U/L Alkaline Phosphatase 107 (38-126) U/L Troponin I < 0.012 (0.000-0.034) ng/mL Total Protein 8.1 (6.3-8.2) g/dL Albumin 4.7 (3.5-5.1) g/dL Lipase 67 (23-300) U/L Urine Color Yellow (Yellow) Urine Appearance Clear (Clear) Urine pH 5.5 (5.0-9.0) Ur Specific [place] 1.018 (1.001-1.035) Urine Protein Negative (Negative) mg/dL Urine Glucose (UA) Negative (Negative) mg/dL Urine Ketones 2+ H (Negative) mg/dL Ur Blood (Man) Negative (Negative) Urine Nitrate Negative (Negative) Urine Bilirubin Negative (Negative) Urine Urobilinogen 0.2 (<2.0) mg/dL Leukocyte Esterase Rfl Negative (Negative) LYNNE/UL POC Urine HCG, Qual Negative (Negative) Urine Opiates Screen Negative (Negative) Urine Methadone Screen Negative (Negative) Ur Barbiturates Screen Negative (Negative) Ur Phencyclidine Scrn Negative (Negative) Ur Amphetamine Screen Negative (Negative) U Benzodiazepines Scrn Negative (Negative) Urine Cocaine Screen Negative (Negative) U Cannabinoids Screen Positive A (Negative) <Brijesh Marcus DO - Last Filed: 12/15/24 20:59> Imaging Data Attestation: I personally reviewed and interpreted this imaging study as follows: <Brijesh Marcus DO - Last Filed: 12/15/24 20:59> Radiologist's impression: ITS Impressions Abdomen/Pelvis CT 12/15/24 18:00 IMPRESSION: 1. Involuting right ovarian corpus luteal cyst measuring 1.4 cm. Small amount of free fluid in the pelvis. <JULIAN Barrera - Last Filed: 12/16/24 15:53> ITS Impressions Abdomen/Pelvis CT 12/15/24 18:00 IMPRESSION: 1. Involuting right ovarian corpus luteal cyst measuring 1.4 cm. Small amount of free fluid in the pelvis. <Brijesh Marcus DO - Last Filed: 12/15/24 20:59> ECG Data EKG #1: Attestation: I personally reviewed and interpreted this ECG as follows: <Brijesh Marcus DO - Last Filed: 12/15/24 20:59> ECG completion date: 12/15/24 <Brijesh Marcus DO - Last Filed: 12/15/24 20:59> ECG completion time: 18:04 <Brijesh Marcus DO - Last Filed: 12/15/24 20:59> Interpretation: Significant artifact, normal sinus rhythm rate of 95 normal axis, normal intervals, poor R-wave progression, no acute ST or T-wave changes <Brijesh MarcusDO - Last Filed: 12/15/24 20:59> Discharge Plan Discharge Clinical Impression: Abdominal pain, Nausea & vomiting <JULIAN Barrera Last Filed: 12/16/24 15:53> Patient Disposition: Home <JULIAN Barrera Last Filed: 12/16/24 15:53> Condition: Stable <JULIAN Barrera Last Filed: 12/16/24 15:53> Instructions: Antibiotic Form, Abdominal Pain (ED) <JULIAN Barrera Last Filed: 12/16/24 15:53> Additional Instructions: Your CT scan was reassuring, it just noted an ovarian cyst. I have no conclusive reason for your abdominal pain this time. It may be related to your marijuana use so I would recommend stopping that at this time. You were given a referral to Dr. Newton, gastroenterology for further evaluation. Take Reglan as prescribed. He may take Tylenol and ibuprofen for ear pain. Return to the ED for any new or worsening symptoms. <JULIAN Barrera Last Filed: 12/16/24 15:53> Patient Language: Setswana <JULIAN Barrera Last Filed: 12/16/24 15:53> Prescriptions: New metoclopramide HCl [Reglan] 10 mg tablet 10 mg PO Q6H PRN (Reason: nausea and vomiting) Qty: 30 0RF No Action esomeprazole magnesium 40 mg capsule,delayed release(DR/EC) 40 mg PO DAILY sertraline [Zoloft] 100 mg tablet 100 mg PO DAILY ondansetron HCl 4 mg tablet 4 mg PO Q4H cephalexin 500 mg capsule 500 mg PO Q12H 5 Days Qty: 10 0RF <JULIAN Barrera Last Filed: 12/16/24 15:53> Follow-up/Referrals: Sheffield,Alecia Abad APRN [Primary Care Provider, Unknown] Nikhil Newton MD [Physician, Gastroenterology] <JULIAN Barrera Last Filed: 12/16/24 15:53>
--- NOTE | 2024-12-15 15:46 | ECG_ITS ---
Test Date: 2024-12-15 18:04:44 Measurements Intervals Rayne Rate: 95 P: 60 ME: 190 QRS: 9 QRSD: 81 T: 27 QT: 340 QTc: 428 Interpretive Statements SINUS RHYTHM POSSIBLE ANTERIOR MYOCARDIAL INFARCTION , OF INDETERMINATE AGE [30 ms Q WAVE IN V3/V4, OR R < 0.2 mV IN V4] No previous ECG available for comparison Electronically Signed On 12-15-2024 21:28:10 HAND [employer]UTTER by Terry Okeefe M.D.
[2024-12-15 16:46] LABS: Add Urine Microscopic? NO; Appearance Urine Clear (Clear); Glucose Urine UA Negative (Negative); Hematocrit 42.2 % (37.0-47.0); Hemoglobin 14.1 g/dL (12.0-15.0); Immature Granulocyte Percent A 0.2 % (0-0.5); Leukocyte Esterase Ur Negative LEU/UL (Negative); Lymphocytes Absolute Auto 2.42 K/mm3 (0.9-3.2); Mean Corpuscular HGB Conc 33.4 g/dl (32-36); Mean Corpuscular Hemoglobin 30.1 pg (26-34); Mean Corpuscular Volume 90.0 fl (80-100); Nitrate Urine Negative (Negative); Nucleated Red Blood Cells Absolute Auto 0.000 K/mm3 (0.0-0.012); Nucleated Red Blood Cells Perc 0.0 % (0.0-0.2); Platelet Count Result 265 k/mm3 (150-375); Red Blood Count 4.69 M/mm3 (4.2-5.4); Specific Grav Ur 1.018 (1.001-1.035); White Blood Count 9.5 K/mm3 (4.5-10.0)
[2024-12-15 17:00] LABS: Alanine Aminotransferase 15 U/L (6-35); Albumin Level 4.7 g/dL (3.5-5.1); Alkaline Phosphatase 107 U/L (38-126); Anion Gap 8 mmol/L (4-12); Aspartate Amino Transferase 24 U/L (14-36); Bilirubin,Total 0.5 mg/dL (0.2-1.3); Blood Urea Nitrogen 8 mg/dL (7-17); Calcium 9.2 mg/dL (8.4-10.2); Carbon Dioxide 22 mmol/L (22-30); Chloride 105 mmol/L (98-107); Estimated CRCL calculation 113 ml/min; Estimated Glomerular Filt Rate > 60; Glucose 86 mg/dL (65-110); Lipase 67 U/L (23-300); Potassium 3.6 mmol/L (3.4-5.0); Sodium 135 mmol/L (137-145); Total Protein 8.1 g/dL (6.3-8.2)
[2024-12-15 17:11] LABS: Troponin I < 0.012 ng/mL (0.000-0.034)
[2024-12-15 17:30] LABS: BEDSIDEPREGUCG Negative (Negative)
[2024-12-15] MEDS: KETOROLAC 15 MG/ML VIAL (*BKC) IV PUSH (17:31)
[2024-12-15] MEDS: SODIUM CHLORIDE 0.9% IV 1,000 ML 999 ML IV CONT (17:31)
[2024-12-15] MEDS: ONDANSETRON INJ 4 MG/2 ML VIAL IV PUSH (17:31)
[2024-12-15] MEDS: MORPHINE SULFATE (*CRX) 4 MG/ML INJ IV PUSH (19:59)
[2024-12-15] MEDS: METOCLOPRAMIDE HCL INJ 10 MG/2 ML VIAL IV PUSH (19:59)
[2024-12-15 20:08] LABS: Cannabinoid Screen Urine Positive (Negative)
== END 2024-12-15 21:03 | disposition home or self-care (01) ==
PROVIDERS: Emergency Provider Student in an Organized Health Care Education/Training Program; PCP Nurse Practitioner Adult Health
DX: R11.2 Nausea with vomiting, unspecified (principal); R10.9 Unspecified abdominal pain; N83.11 Corpus luteum cyst of right ovary; K21.9 Gastro-esophageal reflux disease without esophagitis; Z90.49 Acquired absence of other specified parts of digestive tract; Z77.22 Contact with and (suspected) exposure to environmental tobacco smoke (acute) (chronic); Z79.899 Other long term (current) drug therapy
CPT/HCPCS: 36415; 74177; 80053; 80307; 81003; 81025; 83690; 84484; 85025; 93005; 96361; 96374; 96375; 99284; J1200; J1885; J2270; J2405; J2765; J7030; Q9967

== ENCOUNTER 2024-12-28 15:36 | Outpatient (CLI) | payer OTHER, SELFPAY ==
[2024-12-28 16:05] LABS: Hematocrit 40.2 % (37.0-47.0); Hemoglobin 13.5 g/dL (12.0-15.0); Mean Corpuscular HGB Conc 33.6 g/dl (32-36); Mean Corpuscular Hemoglobin 30.4 pg (26-34); Mean Corpuscular Volume 90.5 fl (80-100); Platelet Count Result 310 k/mm3 (150-375); Red Blood Count 4.44 M/mm3 (4.2-5.4); White Blood Count 8.2 K/mm3 (4.5-10.0)
[2024-12-28 16:20] LABS: Alanine Aminotransferase 22 U/L (6-35); Albumin Level 4.6 g/dL (3.5-5.1); Alkaline Phosphatase 95 U/L (38-126); Amylase 63 U/L (30-110); Anion Gap 7 mmol/L (4-12); Aspartate Amino Transferase 24 U/L (14-36); Bilirubin,Total 0.3 mg/dL (0.2-1.3); Blood Urea Nitrogen 12 mg/dL (7-17); Calcium 9.3 mg/dL (8.4-10.2); Carbon Dioxide 28 mmol/L (22-30); Chloride 104 mmol/L (98-107); Estimated Glomerular Filt Rate > 60; Glucose 102 mg/dL (65-110); Lipase 92 U/L (23-300); Potassium 3.9 mmol/L (3.4-5.0); Sodium 139 mmol/L (137-145); Total Protein 7.8 g/dL (6.3-8.2)
== END 2024-12-28 15:37 | disposition home or self-care (01) ==
LOC: ANHLAB 15:37
PROVIDERS: PCP Nurse Practitioner Adult Health; Visit Provider Nurse Practitioner Family
DX: R19.7 Diarrhea, unspecified (principal); R10.12 Left upper quadrant pain; R11.2 Nausea with vomiting, unspecified
CPT/HCPCS: 36415; 80053; 82150; 83690; 85027

== ENCOUNTER 2024-12-29 11:47 | Outpatient (CLI) | payer OTHER, SELFPAY ==
[2024-12-31 15:09] LABS: Calprotectin, Fecal <5 ug/g (0-120)
== END 2024-12-29 11:48 | disposition home or self-care (01) ==
LOC: ANHLAB 11:49
PROVIDERS: PCP Nurse Practitioner Adult Health; Visit Provider Nurse Practitioner Family
DX: R19.7 Diarrhea, unspecified (principal); R10.12 Left upper quadrant pain; R11.2 Nausea with vomiting, unspecified
CPT/HCPCS: 83993; 87045; 87427

== ENCOUNTER 2024-12-29 12:10 | Emergency (ER) | payer OTHER, SELFPAY ==
[2024-12-29 12:14] VITALS: BP 122/82; PULSE 87; RESP 18; TEMP 36.6; O2SAT 100
--- NOTE | 2024-12-29 13:59 | PC.NURSE ---
Pt dropped off stool sample to the lab today for GI.
[2024-12-29 14:20] LABS: Hematocrit 41.4 % (37.0-47.0); Hemoglobin 13.9 g/dL (12.0-15.0); Immature Granulocyte Percent A 0.3 % (0-0.5); Lymphocytes Absolute Auto 1.99 K/mm3 (0.9-3.2); Mean Corpuscular HGB Conc 33.6 g/dl (32-36); Mean Corpuscular Hemoglobin 30.2 pg (26-34); Mean Corpuscular Volume 90.0 fl (80-100); Nucleated Red Blood Cells Absolute Auto 0.000 K/mm3 (0.0-0.012); Nucleated Red Blood Cells Perc 0.0 % (0.0-0.2); Platelet Count Result 304 k/mm3 (150-375); Red Blood Count 4.60 M/mm3 (4.2-5.4); White Blood Count 8.7 K/mm3 (4.5-10.0)
[2024-12-29 14:20] LABS: BEDSIDEPREGUCG Negative (Negative)
[2024-12-29 14:21] LABS: Add Urine Microscopic? NO; Appearance Urine Clear (Clear); Glucose Urine UA Negative (Negative); Leukocyte Esterase Ur Negative LEU/UL (Negative); Nitrate Urine Negative (Negative); Specific Grav Ur 1.014 (1.001-1.035)
[2024-12-29 14:41] LABS: Alanine Aminotransferase 23 U/L (6-35); Albumin Level 4.6 g/dL (3.5-5.1); Alkaline Phosphatase 114 U/L (38-126); Anion Gap 10 mmol/L (4-12); Aspartate Amino Transferase 26 U/L (14-36); Bilirubin,Total 0.4 mg/dL (0.2-1.3); Blood Urea Nitrogen 9 mg/dL (7-17); Calcium 9.1 mg/dL (8.4-10.2); Carbon Dioxide 23 mmol/L (22-30); Chloride 106 mmol/L (98-107); Estimated CRCL calculation 125 ml/min; Estimated Glomerular Filt Rate > 60; Glucose 91 mg/dL (65-110); Lipase 58 U/L (23-300); Potassium 4.0 mmol/L (3.4-5.0); Sodium 139 mmol/L (137-145); Total Protein 8.2 g/dL (6.3-8.2)
[2024-12-29 15:00] VITALS: BP 129/82; PULSE 80; RESP 16; O2SAT 98
--- NOTE | 2024-12-29 15:43 | ED_ITS ---
HPI - Abdominal Pain General Chief Complaint: Abdominal Pain Stated Complaint: severe luq abd pain Time Seen by Provider: 12/29/24 15:38 History of Present Illness HPI narrative: This is a 24-year-old female with history of GERD who presents the ED for left upper quadrant abdominal pain. Patient states for the past few days, she has been having this pain for the last few weeks but it worsened over the last few days. She was seen by her GI doctor yesterday where testing was obtained and they are in the early process of scheduling an endoscopy. She has had nausea but no vomiting today. Reports the pain radiates to her bilateral lower lower quadrant. Related Data Home Medications ?Medication ?Instructions ?Recorded ?Confirmed ?Last Taken ?Type sertraline 100 mg tablet (Zoloft) 100 mg PO DAILY 08/1212/28/24 Unknown History pantoprazole 40 mg granules 40 mg PO DAILY 12/28/24 Unknown History delayed-release for susp in packet sucralfate 1 gram tablet (Carafate) PO Q6H 12/28/24 Unknown History Allergies Allergy/AdvReac Type Severity Reaction Status Date / Time haloperidol AdvReac Intermediate Palpitation Verified 12/29/24 16:39 s Review of Systems 2 Review of Systems: Gen.: Denies fevers or chills Eyes: Denies eye pain or visual change ENT: Denies congestion Respiratory: Denies shortness of breath or cough CV: Denies chest pain or palpitations GI: As per HPI denies burning, urgency, frequency or hematuria Musculoskeletal: Denies back pain or muscle pain Neuro: Denies numbness, tingling, weakness or focal weakness Skin: Denies rash Except as documented, all other systems reviewed and negative [facility] Past Medical History Medical History LUQ abdominal pain Diarrhea GERD (gastroesophageal reflux disease) Nausea and vomiting Eczema Surgical History Surgical History Hx laparoscopic cholecystectomy Laparoscopic cholecystectomy 11/06 Dr. Donohue ab No significant past surgical history Family History Family History Father No problems noted. Mother Leukemia Gallbladder disease Other Diabetes mellitus Other Diabetes mellitus Other Ovarian cyst Social History Social History Smoking status: Never smoker Tobacco type: cigarettes Second hand tobacco smoke exposure: Yes (parents) Alcohol intake: current Drinks per week: 1 Substance use: current Substance use type: marijuana Other substance usage details: near daily for pain Lack of Transportation: No Lack of Food: Never True Current Housing: I Have Housing Concerned About Future Housing: No Difficulty Paying Gas/Electric Bills: No Difficulty Paying for Meds: No Currently Unemployed: No Education: High School Diploma/GED Difficulty w/ Childcare or Family Care: No Living arrangements: with family Occupation/Education: student Gender identity (if verbalized by the patient): Female Spiritual care concerns: No Exam 2 Narrative: APPEARANCE: Mild distress, nontoxic, resting in bed EYES: EOMI HEENT: Normocephalic, atraumatic, OMM RESPIRATORY: No respiratory distress Clear to auscultation bilaterally with no rhonchi wheezing or rales. CARDIOVASCULAR: Regular rate and rhythm without murmurs rubs or gallops. ABDOMINAL: Soft, tenderness palpation of the left upper quadrant, nondistended, no rebound or guarding MUSCULOSKELETAl: Moves all extremities. No clubbing, cyanosis or edema. NEURO: Awake and alert. Following commands, speech normal, no focal deficits SKIN:: Warm, dry. No rashes lesions or abrasions PSYCHIATRIC: Normal affect/mood, Course Vital Signs Vital signs: Vital Signs Temperature 97.9 F 12/29/24 12:14 Pulse Rate 87 12/29/24 12:14 Respiratory Rate 18 12/29/24 12:14 Blood Pressure 122/82 12/29/24 12:14 Pulse Oximetry 100 12/29/24 12:14 Oxygen Delivery Room Air 12/29/24 12:14 Temperature 97.9 F 12/29/24 12:14 Pulse Rate 68 12/29/24 18:27 Respiratory Rate 16 12/29/24 18:27 Blood Pressure 139/74 12/29/24 18:27 Pulse Oximetry 100 12/29/24 18:27 Oxygen Delivery Room Air 12/29/24 12:14 MDM - Abdominal Pain MDM Narrative Medical decision making narrative: 24-year-old female Presenting for left upper quadrant abdominal pain, nausea vomiting. On initial evaluation patient was in mild distress afebrile, hemodynamic stable. Differentials include but are not limited to: ACS, SBO, pancreatitis, constipation, gastroenteritis, gastritis, cancer, AAA, cyclic vomiting syndrome Notable exam findings: Tenderness to palpation to the left upper quadrant I personally reviewed the patient's lab result. Notable lab findings: CBC and CMP without significant abnormalities. Patient's symptoms were similar to prior episodes when she has already received 6 CT scans in the last several months so I do not believe that additional imaging is indicated at this time especially given her reassuring lab work. Patient does smoke marijuana which could be contributing to this. She already sees GI and is in the process of scheduling an EGD. Patient was given Haldol but did have an akathisia reaction to this so she was given Benadryl. She was subsequently given morphine and Zofran and did have complete resolution of her symptoms. Suspect that her symptoms are due to cyclic vomiting syndrome but this requires further evaluation by GI. Discussed this with the patient and she is agreeable to this plan. Given strict return precautions. Medical Records Attestation: I reviewed the patient's medical records. Lab Data Attestation: I reviewed the patient's lab results. 12/29/24 14:13 12/29/24 14:13 Labs: Lab Results 12/29/24 12/29/24 Range/Units 14:13 14:17 WBC 8.7 (4.5-10.0) K/mm3 RBC 4.60 (4.2-5.4) M/mm3 Hgb 13.9 (12.0-15.0) g/dL Hct 41.4 (37.0-47.0) % MCV 90.0 (80-100) fl MCH 30.2 (26-34) pg MCHC 33.6 (32-36) g/dl RDW 12.9 (11.5-14.5) % Plt Count 304 (150-375) k/mm3 MPV 10.3 (7.4-10.4) fl Immature Gran % (Auto) 0.3 (0-0.5) % Neut % (Auto) 69.3 (45.5-73.1) % Lymph % (Auto) 23.0 (18.3-44.2) % [place] % (Auto) 5.1 (2.6-8.5) % Eos % (Auto) 2.0 (0-4.4) % Baso % (Auto) 0.3 (0.2-1.2) % Lymph # (Auto) 1.99 (0.9-3.2) K/mm3 [place] # (Auto) 0.4 (0.1-0.6) K/mm3 Eos # (Auto) 0.2 (0-0.3) K/mm3 Baso # (Auto) 0.0 (0.0-0.1) K/mm3 Abs Immat Gran (auto) 0.03 (0.00-0.031) K/mm3 Absolute Neuts (auto) 6.0 (1.3-6.7) K/mm3 Absolute Nucleated RBC 0.000 (0.0-0.012) K/mm3 Nucleated RBC % 0.0 (0.0-0.2) % Sodium 139 (137-145) mmol/L Potassium 4.0 (3.4-5.0) mmol/L Chloride 106 (98-107) mmol/L Carbon Dioxide 23 (22-30) mmol/L Anion Gap 10 (4-12) mmol/L BUN 9 (7-17) mg/dL Creatinine 0.63 L (0.7-1.0) mg/dL Estim Creat Clear Calc 125 ml/min Estimated GFR > 60 (59 - ) Glucose 91 (65-110) mg/dL Calcium 9.1 (8.4-10.2) mg/dL Total Bilirubin 0.4 (0.2-1.3) mg/dL AST 26 (14-36) U/L ALT 23 (6-35) U/L Alkaline Phosphatase 114 (38-126) U/L Total Protein 8.2 (6.3-8.2) g/dL Albumin 4.6 (3.5-5.1) g/dL Lipase 58 (23-300) U/L Urine Color Yellow (Yellow) Urine Appearance Clear (Clear) Urine pH 7.0 (5.0-9.0) Ur Specific [place] 1.014 (1.001-1.035) Urine Protein Negative (Negative) mg/dL Urine Glucose (UA) Negative (Negative) mg/dL Urine Ketones Negative (Negative) mg/dL Ur Blood (Man) Negative (Negative) Urine Nitrate Negative (Negative) Urine Bilirubin Negative (Negative) Urine Urobilinogen 0.2 (<2.0) mg/dL Leukocyte Esterase Rfl Negative (Negative) LYNNE/UL POC Urine HCG, Qual Negative (Negative) Urine Opiates Screen Negative (Negative) Urine Methadone Screen Negative (Negative) Ur Barbiturates Screen Negative (Negative) Ur Phencyclidine Scrn Negative (Negative) Ur Amphetamine Screen Negative (Negative) U Benzodiazepines Scrn Negative (Negative) Urine Cocaine Screen Negative (Negative) U Cannabinoids Screen Positive A (Negative) Discharge Plan Discharge Clinical Impression: Nausea and vomiting Qualifiers: Vomiting type: unspecified Qualified Code(s): R11.2 - Nausea with vomiting, unspecified Abdominal pain Qualifiers: Abdominal location: left upper quadrant Qualified Code(s): R10.12 - Left upper quadrant pain Patient Disposition: Home Condition: Stable Instructions: Antibiotic Form, Abdominal Pain (ED) Additional Instructions: Continue to follow-up with GI regarding her symptoms. Take Tylenol and ibuprofen for your pain. Take Zofran as prescribed. Follow-up with your PCP in the next week for re-evaluation. Patient Language: [place] Prescriptions: New ondansetron 4 mg tablet,disintegrating 4 mg PO Q8H PRN (Reason: nausea and vomiting) Qty: 14 0RF No Action sertraline [Zoloft] 100 mg tablet 100 mg PO DAILY levonorgestrel-ethinyl estrad [Lutera (28)] 0.1-20 mg-mcg tablet 1 tablet PO DAILY Qty: 84 1RF pantoprazole [address] for susp in packet 40 mg PO DAILY pantoprazole 40 mg tablet,delayed release (DR/EC) 40 mg PO BID 28 Days Qty: 56 0RF sucralfate [Carafate] 1 gram tablet PO Q6H metoclopramide HCl [Reglan] 10 mg tablet 10 mg PO Q6H PRN (Reason: nausea and vomiting) Qty: 30 0RF Follow-up/Referrals: Yohannes,Alecia Abad APRN [Primary Care Provider, Unknown] Nikhil Newton MD [Physician, Gastroenterology]
[2024-12-29 16:00] VITALS: BP 138/90; PULSE 88; RESP 16; O2SAT 99
[2024-12-29] MEDS: SODIUM CHLORIDE 0.9% IV 1,000 ML 999 ML IV CONT (16:09)
[2024-12-29] MEDS: HALOPERIDOL LACTATE 5 MG/ML VIAL IV PUSH (16:09)
--- NOTE | 2024-12-29 16:20 | ECG_ITS ---
Test Date: 2024-12-29 16:26:26 Measurements Intervals [place] Rate: 104 P: 65 NH: 170 QRS: 7 QRSD: 82 T: 28 QT: 348 QTc: 458 Interpretive Statements SINUS TACHYCARDIA POSSIBLE LEFT ATRIAL ENLARGEMENT [-0.1mV P-WAVE IN V1/V2] LOW QRS VOLTAGE IN PRECORDIAL LEADS [QRS DEFLECTION < 1.0 mV IN CHEST LEADS] CANNOT RULE OUT ANTERIOR MYOCARDIAL INFARCTION, AGE INDETERMINATE ABNORMAL ECG Compared to ECG 12/15/2024 18:04:44 Low QRS voltage now present Sinus rhythm no longer present Myocardial infarct finding no longer present Electronically Signed On 12-29-2024 17:08:56 [employer] SALES REPRESENTATIVE by Pablo Lovell M.D.
--- NOTE | 2024-12-29 16:36 | PC.NURSE ---
After giving the IV halodol, pt became diaphoretic and tachycardic up into the 170's. cool rag was placed on the pts forehead. attempted to get provider, however pt was in a different room. Laura Donis came into the room and assisted me. Dr. Marcus came in shortly after. EKG obtained and IV benadryl given to the pt. pt returned back to baseline after giving the benadryl
--- NOTE | 2024-12-29 16:52 | PC.NURSE ---
Pt. states I peed my pants. This RN offered to help pt. change her pants and clean herself. Pt. is A&Ox4 and denied help at this time stating she does not want to change her pants at this time.
[2024-12-29 16:54] LABS: Cannabinoid Screen Urine Positive (Negative)
[2024-12-29 17:00] VITALS: BP 138/96; PULSE 68; RESP 16; O2SAT 100
[2024-12-29] MEDS: MORPHINE SULFATE (*CRX) 4 MG/ML INJ IV PUSH (17:08)
[2024-12-29] MEDS: ONDANSETRON INJ 4 MG/2 ML VIAL IV PUSH (17:08)
[2024-12-29] MEDS: BELLADONNA ALK/PHENOB ELIX 10 ML, MAG HYDROX/ALUMINUM HYD/SIMETH 30 ML, LIDOCAINE 2% VI... PO (17:09)
[2024-12-29 18:27] VITALS: BP 139/74; PULSE 68; RESP 16; O2SAT 100
== END 2024-12-29 18:30 | disposition home or self-care (01) ==
PROVIDERS: Emergency Provider Student in an Organized Health Care Education/Training Program; PCP Nurse Practitioner Adult Health
DX: R11.2 Nausea with vomiting, unspecified (principal); R10.12 Left upper quadrant pain; R00.0 Tachycardia, unspecified; K21.9 Gastro-esophageal reflux disease without esophagitis
CPT/HCPCS: 36415; 80053; 80307; 81003; 81025; 83690; 85025; 93005; 96361; 96374; 96375; 99284; A9270; J1200; J1630; J2270; J2405; J7030

== ENCOUNTER 2025-01-05 00:09 | Day surgery (SDC) | payer OTHER, SELFPAY ==
[2025-01-01 12:46] VITALS: BMI 29.9
[2025-01-05 08:02] VITALS: BP 117/83; PULSE 64; RESP 18; TEMP 36.1; O2SAT 100; BMI 30.7
[2025-01-05 08:06] LABS: BEDSIDEPREGUCG Negative (Negative)
[2025-01-05] MEDS: LACTATED RINGERS 1,000 ML 150 ML IV CONT (08:10)
--- NOTE | 2025-01-05 08:21 | P.PNAN_ITS ---
Anes - Initial Pre Proc Eval Procedure: Operation Date: 01/05/25 08:45 Proposed Procedures p Esophagogastroduodenoscopy - Jean Claude Marin MD Date/Time: 01/05/25 08:21 Surgeon: Jean Claude Marin MD Pre Op Diagnosis: Nausea with vomiting, unspecified Patient Data Age: 24 Gender: F Height: 1.65 m Weight: 83.6 kg Last Vital Signs Temp 97 F L 01/05/25 08:02 Pulse 64 01/05/25 08:02 Resp 18 01/05/25 08:02 BP 117/83 01/05/25 08:02 Pulse Ox 100 01/05/25 08:02 O2 Del Method Room Air 01/05/25 08:02 Allergies Allergy/AdvReac Type Severity Reaction Status Date / Time haloperidol AdvReac Intermediate Palpitation Verified 01/05/25 08:01 s Home Medications ?Medication ?Instructions ?Recorded ?Confirmed ?Type sertraline 100 mg tablet (Zoloft) 100 mg PO DAILY 08/1201/05/25 History metoclopramide HCl 10 mg tablet 10 mg PO Q6H PRN nause a and 12/15/24 01/01/25 Rx (Reglan) vomiting #30 tabs levonorgestrel-ethinyl estradiol 1 tablet PO DAILY #84 tabs 12/28/24 01/05/25 Rx 0.1 mg-20 mcg tablet (Lutera (28)) pantoprazole 40 mg granules 40 mg PO DAILY 12/28/24 History delayed-release for susp in packet pantoprazole 40 mg tablet,delayed 40 mg PO BID 4 weeks #56 tabs 12/28/24 01/05/25 Rx release sucralfate 1 gram tablet (Carafate) 1 g PO Q6H 5 01/05/25 History ondansetron 4 mg disintegrating 4 mg PO Q8H PRN nausea and 12/29/24 01/01/25 Rx tablet vomiting #14 tabs Laboratory Tests 01/05/25 08:02 POC Urine HCG, Qual Negative (Negative) Patient hx anesthesia problems: none Family hx anesthesia problems: none Results Review: All pre-operative results and documents have been reviewed as part of the pre- operative evaluation. [facility] Past Medical History Medical History LUQ abdominal pain Diarrhea GERD (gastroesophageal reflux disease) Nausea and vomiting Eczema Surgical History Surgical History Hx laparoscopic cholecystectomy Laparoscopic cholecystectomy 11/06 Dr. Charanjit ochoa No significant past surgical history Family History Family History Father No problems noted. Mother Leukemia Gallbladder disease Other Diabetes mellitus Other Diabetes mellitus Other Ovarian cyst Social History Social History Smoking status: Never smoker Tobacco type: cigarettes Second hand tobacco smoke exposure: Yes (parents) Alcohol intake: current Drinks per week: 1 Substance use: current Substance use type: marijuana Other substance usage details: every other day Lack of Transportation: No Lack of Food: Never True Current Housing: I Have Housing Concerned About Future Housing: No Difficulty Paying Gas/Electric Bills: No Difficulty Paying for Meds: No Currently Unemployed: No Education: High School Diploma/GED Difficulty w/ Childcare or Family Care: No Living arrangements: with friend(s) Occupation/Education: student Gender identity (if verbalized by the patient): Female Spiritual care concerns: No Anes - Eval Final PreProcedure Day of Procedure 01/05/25 08:21 Patient weight: obese Lungs: normal air movement Airway: Mallampati scale class II Neurological: alert and oriented Last oral intake: >/= 8 hours ASA classification: II Emergent: no Anesthetic plan: proceed Anesthesia type and monitoring: general GIVS and standard monitoring Results Review: All pre-operative results and documents have been reviewed as part of the pre- operative evaluation. BMI 30, cannabis use daily, pt w abd pain/N/V, freq ER visits. Informed Consent: The patient's anesthetic plan and its attendant risks and benefits were discussed with the patient/family/POA. Questions were solicited and answers provided to the satisfaction of the patient/family/POA.
--- NOTE | 2025-01-05 08:33 | WPDHPUPDATE1 ---
History and Physical Update Update Date/Time: 01/05/25 08:33 History and Physical has been reviewed, including an updated exam of the patient. There are NO changes in the patient's condition. Risks, benefits, and alternatives have been discussed and questions answered. Patient agrees to proceed with procedure.
--- NOTE | 2025-01-05 08:38 | S_PTH ---
PATIENT: Malinda Torres LOC: [facility]#:[id number] AGE/SX: 24/F ROOM: RE01/05/[address]: Jean Claude Marin MD : 2000 BED: DIS: 01/05/2025 SPEC #: [id number] RECD: 01/05/25 09:52 STATUS: MAEGAN REMansoor #: [id number] ADDY: 01/05/25 08:[address]: Jean Claude Marin DEPT: [facility] Surgical RECD BY: Mitchel Saini ENTERED: 01/05/25 09:53 SP TYPE: Surgical OTHR DR: Alecia Sheffield, HOUSING MANAGEMENT OFFICER Tissues: A - Small Bowel Bx B - Gastric Biopsy C - Esophageal Biopsy Procedures: Hematoxylin and Eosin Stain Gross and Microscopic Level 4
[2025-01-05 08:43] VITALS: BP 98/53; PULSE 80; RESP 27; O2SAT 100
[2025-01-05 08:53] VITALS: BP 106/64; PULSE 75; RESP 19; O2SAT 99
[2025-01-05 09:03] VITALS: BP 101/56; PULSE 71; RESP 23; O2SAT 100
== END 2025-01-05 09:08 | disposition home or self-care (01) ==
PROVIDERS: Anesthesiology; PCP Nurse Practitioner Adult Health; Referring Provider Nurse Practitioner Family; Visit Provider Internal Medicine Gastroenterology
PROC: 0DJ08ZZ Inspection of Upper Intestinal Tract, Via Natural or Artificial Opening Endoscopic (ICD-10-PCS; CPT 43239; principal; 2025-01-05 08:45)
DX: K21.9 Gastro-esophageal reflux disease without esophagitis (principal); L30.9 Dermatitis, unspecified; F12.90 Cannabis use, unspecified, uncomplicated; E66.9 Obesity, unspecified; Z68.30 Body mass index [BMI] 30.0-30.9, adult; Z90.49 Acquired absence of other specified parts of digestive tract; Z80.6 Family history of leukemia
CPT/HCPCS: 43239; 88305; J2003; J2704; J7120